=== PATIENT | female | born 1995 | race Two or more races ===

== ENCOUNTER → 2020-03-29 07:41 | Outpatient (BNVA) | payer OTHER, SELFPAY | PROVIDERS: PCP Internal Medicine; Visit Provider Surgery | DX: Z76.89 Persons encountering health services in other specified circumstances (principal) ==

== ENCOUNTER → 2020-04-13 13:33 | Outpatient (REF) | payer OTHER, SELFPAY ==
--- NOTE | 2020-04-13 13:30 | ECG_ITS ---
Hook-up date: 2020-04-13 00:03:00 Duration: 05:56:00 Test Indications: PALPITATIONS Medications: 83156 QRS complexes 1 Ventricular ectopics which represent <1 % of total QRS comp. * Supraventricular ectopics which represent % of total QRS comp. * Paced QRS complexs which represent % of total QRS comp. VENTRICULAR ECTOPY 1 Isolated 0 Bigeminal Cycles 0 Couplets 0 Runs 0 Beats in Runs * Beats LONGEST at * BPM at :: -- * Beats FASTEST at * BPM at :: -- SUPRAVENTRICULAR ECTOPY * Isolated * Couplets * Runs * Beats in Runs * Beats LONGEST at * BPM at :: -- * Beats FASTEST at * BPM at :: -- HEART RATES 50 MIN at 03:45:58 2020-04-13 79 AVG 152 MAX at 03:39:46 2020-04-13 LONGEST RR 1.3840 secs at 04:15:46 2020-04-13 S-T LEVELS Channel 1 - 128 mm at 00:03:00 2020-04-13 - 128 mm at 00:03:00 2020-04-13 Channel 2 - 128 mm at 00:03:00 2020-04-13 - 128 mm at 00:03:00 2020-04-13 Channel 3 - 128 mm at 01:92:21 -- - 128 mm at 01:92:21 Limited data for about 6 hours. Basic rhythm Normal sinus rhythm No long pause or profound bradycardia No dangerous dysrhythm periods Patient did not report any symptoms in the diary Consider repeating the study if clinically indicated Referred By: Nikhil Toney Overread By: YOVANY BURRIS MD
== END ==
LOC: HO.CARD 13:33
PROVIDERS: Visit Provider Internal Medicine
DX: R00.2 Palpitations (principal)
CPT/HCPCS: 93225; 93226

== ENCOUNTER → 2020-04-22 13:43 | Outpatient (BNVA) | payer OTHER, SELFPAY | PROVIDERS: PCP Internal Medicine; Visit Provider Internal Medicine | DX: R00.2 Palpitations (principal) | CPT/HCPCS: 93005; 99202 ==

== ENCOUNTER → 2020-04-27 13:55 | Outpatient (REF) | payer OTHER, SELFPAY ==
--- NOTE | 2020-04-27 14:03 | CA_ITS ---
Transthoracic Echocardiogram Patient (Last, First, Middle): Cecilia Rivas, Gender: Female Date of : 1995 Age: 24 Procedure Date: 04/27/2020 Procedure Type: Transthoracic Echocardiogram Location: OP Height: 160.02 cm Weight: 84.37 kg BSA: 1.88 m2 Heart Rate: bpm BP: 96 / 60 mmHg Piano Mechanic: Liss MD: Jose Pascual MD Symptoms: R00.2 - Palpitations Study Quality: Good ECG Rhythm: Sinus Conclusions: - The left ventricular systolic function is normal. The visually estimated ejection fraction is between 60-65%. - LV global endocardial peak longitudinal strain -20.2% (normal). - No obvious valvular pathology seen on this study. Findings Left Ventricle Normal left ventricular cavity size. There is normal left ventricular wall thickness. The left ventricular systolic function is normal. The visually estimated ejection fraction is between 60-65%. There is no evidence of regional wall motion abnormalities. Diastolic function is normal for age. LV global endocardial peak longitudinal strain -20.2%. Right Ventricle Normal right ventricular cavity size and systolic function. Atria Both atria are normal in size. Aortic Valve There is a normal trileaflet aortic valve. There is no aortic valve stenosis. There is no aortic valve regurgitation. Mitral Valve The mitral valve appears normal. There is trace mitral valve regurgitation. There is no mitral valve stenosis. Pulmonic Valve The pulmonic valve was not well visualized. There is trace pulmonic valve regurgitation. Tricuspid Valve Normal tricuspid valve structure. There is trace tricuspid valve regurgitation. The pulmonary artery systolic pressure is normal. Great Vessels The aortic annulus, sinuses of valsalva, and asc aorta are normal in size. Venous The inferior vena cava is normal in size and collapses greater than 50% with inspiration. Pericardium/Pleural There is no evidence of pericardial effusion. Prior Study Comparison No prior study available for comparison. Recommendations, Care & Conclusions No obvious valvular pathology seen on this study. Measurements 2D Linear Measurements RVIDd: 3.19 RVIDd Index: 1.70 IVSd: 0.80 0.6-0.9/0.6-1.0 cm LVIDd: 5.03 3.9-5.3/4.2-5.9 cm LVIDd Index: 2.68 2.4-3.2/2.2-3.1 cm/m2 LVIDs: 3.65 2.0-3.6 cm LVPWd: 1.01 0.7-1.1 cm Ao Root: 2.70 2.1-3.5 cm LA Diam: 3.80 2.7-3.8/3.0-4.0 cm LAIDs Index: 2.02 1.5-2.3 cm/m2 LV Mass: 201.04 67-162/88-224 g LV Mass Index: 106.94 43-95/49-115 g/m2 LVOT Diam: 2.00 3.0+(-)1.3 cm 2D Systolic Function EF 4C: 59.90 >55% EF 2C: 70.10 >55% EF BiP: 64.40 >55% Mitral Valve MV Pk E: 0.96 MV PK A: 0.34 MV Decel Time: 294.00 E/A: 2.90 E'Lateral: 17.50 E'Medial: 9.25 E/E' Med: 10.40 E/E' Lat: 5.50 Decel [place]: 3.26 Aortic Valve AoV Pk Albino: 1.47 AoV Mn Albino: 1.08 AoV VTI: 0.32 AoV Pk Grad: 9.00 Aov Mn Grad: 5.00 YAIMA Cont.VTI: 2.25 LVOT LVOT Pk Albino: 1.01 LVOT Mn Albino: 0.74 LVOT VTI: 0.23 LVOT Pk Grad: 4.00 LVOT Mn Grad: 2.00 LVOT Diam: 2.00 LVOT Area: 3.14 Diastolic Function MV Pk E: 0.96 MV Pk A: 0.34 E/A: 2.90 E'Medial: 9.25 E/E' Med: 10.40 E' Laterial: 17.50 E/E' Lat: 5.50 Tricuspid Valve TR Pk Albino: 1.81 TR Pk Grad: 13.00 RA Press: 8.00 RVSP: 21.00 Great Vessels Aorta Ao Root-2D: 2.70 2.0-3.7 cm Ao Asc: 2.50 2.1-3.4 cm Ao Arch: 2.60 Updated in Other Vendor System with Status of Final Jose Pascual MD electronically signed on 04/28/2020 8:28:09 AM with status of Final
== END ==
LOC: HO.CARD 13:55
PROVIDERS: PCP Internal Medicine; Visit Provider Internal Medicine
DX: R00.2 Palpitations (principal)
CPT/HCPCS: 93306; 93356

== ENCOUNTER 2020-05-02 13:09 | Emergency (ER) | payer OTHER, SELFPAY ==
[2020-05-02 13:19] VITALS: BP 114/62; PULSE 80; RESP 16; TEMP 36.1; O2SAT 97; BMI 32.4
--- NOTE | 2020-05-02 13:34 | ED_ITS ---
HPI - Extremity Injury (Lower) General Chief Complaint: Extremity Injury, Lower Stated Complaint: upper left leg pain/injury Time Seen by Provider: 05/02/20 13:34 History of Present Illness HPI Narrative: Patient complains of pain in the left thigh after tripping last night and twisting left thigh, no other injury and patient has been able to walk on it but is painful in the front of her left thigh This happened yesterday, the pain is mild, she has not done any treatments at home Related Data Home Medications Medication Instructions Recorded Confirmed levonorgestrel 20.1 mcg/24 hrs (6 INTRAUTERINE 03/27/20 04/22/20 yrs) 52 mg intrauterine device pantoprazole 40 mg tablet,delayed 40 mg PO DAILY 03/27/20 04/22/20 release sucralfate 100 mg/mL oral 10 ml PO BID 03/27/20 04/22/20 suspension spironolactone 50 mg tablet 50 mg PO BID 04/22/20 04/22/20 Previous Rx's Medication Instructions Recorded ibuprofen 600 mg PO Q6H PRN #20 tab 05/02/20 Allergies Allergy/AdvReac Type Severity Reaction Status Date / Time No Known Allergies Allergy Verified 04/22/20 14:25 Review of Systems 2 Review of Systems: Review of systems is positive for left thigh pain Negatives are no head injury no headache no nausea no vomiting no vision changes no dizziness, no neck pain, no difficulty breathing no chest pain or rib pain No numbness no weakness Yes all other systems are reviewed and are negative PMFSH Past Medical History Source: nursing notes reviewed Medical History Intestinal malabsorption Obesity Surgical History S/P laparoscopic sleeve gastrectomy Family History Family History Father Bipolar 1 disorder Mother HTN (hypertension) Son No problems noted. Daughter No problems noted. Brother No problems noted. Sister No problems noted. Social History Social History Alcohol intake: never Smoking Status: Never smoker Advance Directives: No Advance Directives Information Provided: Yes Physical Exam Vital Signs: Vital Signs: Last Vital Signs Temp 96.9 F 05/02/20 13:19 Pulse 80 05/02/20 13:19 Resp 16 05/02/20 13:19 BP 114/62 05/02/20 13:19 Pulse Ox 97 05/02/20 13:19 Body Mass Index 32.4 General appearance is no acute distress, comfortable, ambulates with a limp, A&O x3 Head is normocephalic atraumatic neck is supple and nontender Respiratory there is no respiratory distress Extremities the left anterior thigh in the quadriceps area has tenderness, there is full range of motion in the hip and the knee, there is no tenderness or swelling in the knee joint, there is no obvious swelling to the left thigh, the left hip has full range of motion without pain, neurovascular intact distal Patient ambulates comfortably with a mild limp The skin is intact Other extremities right leg right and left arms are normal Neuro is a and O x3, no numbness no weakness, motor is 5/5 x4 Course Course Course Narrative: No evidence of any bony injury, patient ambulates well with the mild limp and is discharged home with diagnosis left thigh muscle strain Discharge Plan Discharge Clinical Impression: Muscle strain of left lower extremity Qualifiers: Encounter type: initial encounter Qualified Code(s): S86.912A - Strain of unspecified muscle(s) and tendon(s) at lower leg level, left leg, initial encounter Patient Disposition: Home, Self-Care Additional Instructions: You strained a muscle in your thigh and this usually will get better in a few weeks It is okay to do activity as tolerated You can follow with primary doctor or orthopedist for possible physical therapy Return any time any concerns Prescriptions: New ibuprofen 600 mg tablet 600 mg PO Q6H PRN (Reason: pain) Qty: 20 RF: 0 No Action spironolactone 50 mg tablet 50 mg PO BID RF: 0 pantoprazole 40 mg tablet,delayed release (DR/EC) 40 mg PO DAILY RF: 0 sucralfate 100 mg/mL suspension 10 ml PO BID RF: 0 Liletta 20.1 mcg/24 hrs (6 yrs) 52 mg intrauterine device intrauterine RF: 0 Referrals: Richard Mcpherson MD [Physician] - 2 days (Left thigh muscle strain) Interventions: ED Discharge Assessment Last Done: 05/02/20 13:47 Discharge Date/Time: 05/02/20 13:49
== END 2020-05-02 13:49 | disposition home or self-care (01) ==
PROVIDERS: Emergency Provider Emergency Medicine; PCP Internal Medicine
DX: S86.912A Strain of unspecified muscle(s) and tendon(s) at lower leg level, left leg, initial encounter (principal); M79.652 Pain in left thigh; X50.1XXA Overexertion from prolonged static or awkward postures, initial encounter; Y93.01 Activity, walking, marching and hiking; Y92.9 Unspecified place or not applicable; Y99.9 Unspecified external cause status; Z79.899 Other long term (current) drug therapy
CPT/HCPCS: 99283

== ENCOUNTER 2020-05-05 13:32 | Outpatient (REF) | payer OTHER, SELFPAY ==
[2020-05-05 16:06] LABS: Syphilis Screen Reactive (Nonreactive)
[2020-05-06 02:53] LABS: CT PCR NOT DETECTED (Not Detect.); NG PCR NOT DETECTED (Not Detect.)
[2020-05-06 08:18] LABS: BV Int Neg Control Negative (Negative); BV Int Pos Control Positive (Positive)
[2020-05-06 09:08] LABS: HBc Num1 0.09 S/CO (0.00-0.79); Hepatitis B Core Antibody Nonreactive (Nonreactive); ~Hepatitis C Antibody Nonreactive (Nonreactive)
[2020-05-07 16:13] LABS: HIV AB/AG Nonreactive (Nonreactive); HIV Num 1 0.11 S/CO (0.00-0.99)
== END 2020-05-05 13:33 | disposition home or self-care (01) ==
LOC: HO.LAB 13:32
PROVIDERS: Visit Provider Advanced Practice Midwife
DX: Z20.2 Contact with and (suspected) exposure to infections with a predominantly sexual mode of transmission (principal); Z11.3 Encounter for screening for infections with a predominantly sexual mode of transmission
CPT/HCPCS: 86592; 86704; 86780; 86803; 87389; 87480; 87491; 87510; 87591; 87660; 99212

== ENCOUNTER → 2020-05-19 11:02 | Outpatient (BNVA) | payer OTHER, SELFPAY | PROVIDERS: Visit Provider Internal Medicine | DX: Z76.89 Persons encountering health services in other specified circumstances (principal) ==

== ENCOUNTER → 2020-05-26 11:58 | Outpatient (BNVA) | payer OTHER, SELFPAY | PROVIDERS: Visit Provider Advanced Practice Midwife | DX: Z76.89 Persons encountering health services in other specified circumstances (principal) ==

== ENCOUNTER → 2020-06-02 07:22 | Outpatient (BNVA) | payer OTHER, SELFPAY | PROVIDERS: Visit Provider Surgery | DX: Z76.89 Persons encountering health services in other specified circumstances (principal) ==

== ENCOUNTER 2020-06-11 12:17 | Outpatient (REF) | payer OTHER, SELFPAY ==
[2020-06-11 15:05] LABS: Syphilis Screen Reactive (Nonreactive)
[2020-06-14 07:54] LABS: HBsAGNum1 0.21 S/CO (0.00-0.99); Hepatitis B Surface Antigen Negative (Negative); ~HepC Num1 0.07 S/CO (0.00-0.79); ~Hepatitis C Antibody Nonreactive (Nonreactive)
[2020-06-14 08:26] LABS: HIV AB/AG Nonreactive (Nonreactive); HIV Num 1 0.18 S/CO (0.00-0.99)
[2020-06-20 08:47] LABS: RPR Quantitative Non-Reactive (Nonreactive); T.Pallidum Particle Agg Test Reactive (Nonreactive)
== END 2020-06-11 12:18 | disposition home or self-care (01) ==
LOC: HO.LAB 12:17
PROVIDERS: PCP Internal Medicine; Visit Provider Advanced Practice Midwife
DX: Z20.2 Contact with and (suspected) exposure to infections with a predominantly sexual mode of transmission (principal)
CPT/HCPCS: 86592; 86780; 86803; 87340; 87389

== ENCOUNTER 2020-07-07 07:23 | Outpatient (REF) | payer OTHER, SELFPAY | END 2020-07-07 07:24 | disposition home or self-care (01) | LOC: HO.LAB 07:23 | PROVIDERS: Visit Provider Internal Medicine | DX: Z20.822 Contact with and (suspected) exposure to COVID-19 (principal) | CPT/HCPCS: 36415; C9803; U0003 ==

== ENCOUNTER → 2020-07-23 07:28 | Outpatient (BNVA) | payer OTHER, SELFPAY | PROVIDERS: PCP Internal Medicine; Visit Provider Surgery ==

== ENCOUNTER 2020-08-04 09:15 | Outpatient (REF) | payer OTHER, SELFPAY ==
[2020-08-05 09:06] LABS: BV Int Neg Control Negative (Negative); BV Int Pos Control Positive (Positive)
[2020-08-05 12:47] LABS: C. trachomatis RNA TMA NOT DETECTED (NOT DETECTED); N. gonorrhoeae RNA TMA NOT DETECTED (NOT DETECTED)
== END 2020-08-04 09:16 | disposition home or self-care (01) ==
LOC: HO.LAB 09:15
PROVIDERS: PCP Internal Medicine; Visit Provider Advanced Practice Midwife
DX: Z01.419 Encounter for gynecological examination (general) (routine) without abnormal findings (principal); N89.8 Other specified noninflammatory disorders of vagina; K90.49 Malabsorption due to intolerance, not elsewhere classified; Z20.2 Contact with and (suspected) exposure to infections with a predominantly sexual mode of transmission; Z90.3 Acquired absence of stomach [part of]
CPT/HCPCS: 87480; 87491; 87510; 87591; 87660; 88142

== ENCOUNTER 2020-08-06 08:23 | Outpatient (REF) | payer OTHER, SELFPAY ==
[2020-08-06 09:36] LABS: HCG Quantitative < 2 mIU/mL
[2020-08-06 09:57] LABS: Syphilis Screen Reactive (Nonreactive)
[2020-08-06 10:02] LABS: HBc Num1 0.07 S/CO (0.00-0.79); HIV AB/AG Nonreactive (Nonreactive); HIV Num 1 0.07 S/CO (0.00-0.99); Hepatitis B Core Antibody Nonreactive (Nonreactive); ~HepC Num1 0.08 S/CO (0.00-0.79); ~Hepatitis C Antibody Nonreactive (Nonreactive)
[2020-08-13 11:09] LABS: RPR Quantitative Non-Reactive (Nonreactive); T.Pallidum Particle Agg Test Reactive (Nonreactive)
== END 2020-08-06 08:24 | disposition home or self-care (01) ==
LOC: HO.LAB 08:23
PROVIDERS: PCP Internal Medicine; Visit Provider Advanced Practice Midwife
DX: Z20.2 Contact with and (suspected) exposure to infections with a predominantly sexual mode of transmission (principal); Z30.09 Encounter for other general counseling and advice on contraception
CPT/HCPCS: 36415; 84702; 86592; 86704; 86780; 86803; 87389; 87491; 87591

== ENCOUNTER 2020-08-10 11:55 | Outpatient (REF) | payer OTHER, SELFPAY ==
[2020-08-10 13:59] LABS: MANUAL DIFF FLAG NO
[2020-08-10 14:01] LABS: Basophils Percent Auto 0.3 % (0-2); Eosinophils Absolute Auto 0.1 X10*3/uL (0.0-0.4); Eosinophils Percent Auto 0.9 % (0-4); Hematocrit 39.9 % (37-47); Hemoglobin 12.8 g/dl (12.0-16.0); Imm Gran Abs Auto 0.01 X10*3/uL (0.00-0.03); Imm Gran Pct Auto 0.1 % (0.0-0.4); Lymphocytes Absolute Auto 2.8 X10*3/uL (1.2-4.9); Lymphocytes Percent Auto 29.3 % (20-40); Mean Corpuscular HGB Conc 32.1 g/dl (31.0-35.0); Mean Corpuscular Hemoglobin 29.5 pg (27.0-33.0); Mean Corpuscular Volume 91.9 fL (80-98); Mean Platelet Volume 10.8 fL (9.4-12.3); Monocytes Absolute Auto 0.5 X10*3/uL (0.1-1.2); Monocytes Percent Auto 5.4 % (2-11); Neutrophils Absolute Auto 6.2 X10*3/uL (2.0-8.3); Platelet Count 399 X10*3/uL (160-400); Red Blood Count 4.34 X10*6/uL (4.20-5.50); Red Cell Distribution Width 12.3 % (11.0-16.0); White Blood Count 9.6 X10*3/uL (4.8-10.8)
[2020-08-10 14:10] LABS: INTERNATIONAL NORM RATIO 1.1 (0.9-1.1); Prothrombin Time 13.1 SEC (10.8-13.0)
[2020-08-10 14:34] LABS: Alanine Aminotransferase 14 U/L (0-31); Albumin Level 4.6 g/dL (3.5-5.0); Alkaline Phosphatase 53 U/L (39-117); Anion Gap 11 (12-20); Aspartate Amino Transferase 18 U/L (5-31); Bilirubin Total 0.8 mg/dL (0.0-1.0); Blood Urea Nitrogen 14 mg/dL (9-16); Calcium 9.7 mg/dL (8.4-10.2); Carbon Dioxide 28 mmol/L (22-29); Chloride 105 mmol/L (96-108); Estimated Glomerular Filt Rate > 60; Glucose Random 84 mg/dL (60-115); Potassium 4.6 mmol/L (3.3-5.1); Sodium 139 mmol/L (135-145); Total Protein 7.6 g/dL (6.5-8.0)
[2020-08-10 14:57] LABS: Ferritin 35 ng/mL (10-122)
[2020-08-11 17:36] LABS: C. trachomatis RNA TMA NOT DETECTED (NOT DETECTED); N. gonorrhoeae RNA TMA NOT DETECTED (NOT DETECTED)
== END 2020-08-10 11:56 | disposition home or self-care (01) ==
LOC: HO.HMGCLDS 11:55
PROVIDERS: PCP Internal Medicine; Visit Provider Nurse Practitioner Family
DX: R23.8 Other skin changes (principal); Z20.2 Contact with and (suspected) exposure to infections with a predominantly sexual mode of transmission
CPT/HCPCS: 36415; 80053; 82728; 85025; 85610; 87491; 87591

== ENCOUNTER 2020-09-07 09:36 | Outpatient (REF) | payer OTHER, SELFPAY ==
[2020-09-07 10:17] LABS: MANUAL DIFF FLAG NO
[2020-09-07 10:23] LABS: Basophils Percent Auto 0.5 % (0-2); Eosinophils Absolute Auto 0.1 X10*3/uL (0.0-0.4); Eosinophils Percent Auto 0.8 % (0-4); Hematocrit 39.5 % (37-47); Hemoglobin 12.9 g/dl (12.0-16.0); Imm Gran Abs Auto 0.01 X10*3/uL (0.00-0.03); Imm Gran Pct Auto 0.2 % (0.0-0.4); Lymphocytes Percent Auto 33.2 % (20-40); Mean Corpuscular HGB Conc 32.7 g/dl (31.0-35.0); Mean Corpuscular Hemoglobin 29.3 pg (27.0-33.0); Mean Corpuscular Volume 89.8 fL (80-98); Monocytes Absolute Auto 0.5 X10*3/uL (0.1-1.2); Monocytes Percent Auto 7.3 % (2-11); Neutrophils Absolute Auto 3.6 X10*3/uL (2.0-8.3); Platelet Count 356 X10*3/uL (160-400); Red Cell Distribution Width 11.9 % (11.0-16.0); White Blood Count 6.1 X10*3/uL (4.8-10.8)
[2020-09-07 10:57] LABS: Alanine Aminotransferase 13 U/L (0-31); Albumin Level 4.5 g/dL (3.5-5.0); Alkaline Phosphatase 49 U/L (39-117); Anion Gap 10 (12-20); Aspartate Amino Transferase 18 U/L (5-31); Bilirubin Direct 0.4 mg/dL (0.0-0.5); Blood Urea Nitrogen 19 mg/dL (9-16); Calcium 9.3 mg/dL (8.4-10.2); Carbon Dioxide 28 mmol/L (22-29); Chloride 107 mmol/L (96-108); Cholesterol 118 mg/dL; Estimated Glomerular Filt Rate > 60; Glucose Fasting 78 mg/dL (60-99); HDL Cholesterol 59 mg/dL; LDL Cholesterol Calculated 54 mg/dl; Potassium 4.7 mmol/L (3.3-5.1); Sodium 140 mmol/L (135-145); Total Protein 7.3 g/dL (6.5-8.0); Triglycerides 28 mg/dL
== END 2020-09-07 09:37 | disposition home or self-care (01) ==
LOC: HO.LAB 09:36
PROVIDERS: Absent Provider Advanced Practice Midwife; PCP Internal Medicine; Visit Provider Internal Medicine
DX: Z00.01 Encounter for general adult medical examination with abnormal findings (principal)
CPT/HCPCS: 36415; 80048; 80061; 80076; 85025

== ENCOUNTER 2020-09-08 12:33 | Outpatient (REF) | payer OTHER, SELFPAY | END 2020-09-08 12:34 | disposition home or self-care (01) | LOC: HO.LAB 12:33 | PROVIDERS: Visit Provider Internal Medicine | DX: Z20.822 Contact with and (suspected) exposure to COVID-19 (principal) | CPT/HCPCS: 36415; C9803; U0003; U0005 ==

== ENCOUNTER 2020-10-02 20:21 | Emergency (ER) | payer OTHER, SELFPAY ==
[2020-10-02 20:34] VITALS: BP 157/79; PULSE 84; RESP 18; TEMP 37.4; O2SAT 100; BMI 31.3
--- NOTE | 2020-10-02 22:37 | ED.WOUNDLAC ---
HPI - Wound/Laceration General Chief Complaint: Wound/Laceration Stated Complaint: Wound check Time Seen by Provider: 10/02/20 21:49 Source: patient Mode of arrival: ambulatory Limitations: no limitations History of Present Illness HPI narrative: Patient had abdominoplasty cosmetic surgery on 09/23/2020 had a drain placed none did not notice much drainage for last 24 hour feel gas in abdomen no significant redness or pus discharge around the incision site no fever no vomiting Related Data Home Medications Medication Instructions Recorded Confirmed pantoprazole 40 mg tablet,delayed 40 mg PO DAILY 03/27/20 11/09/20 release spironolactone 50 mg tablet 50 mg PO BID 04/22/20 11/09/20 hydrocortisone valerate 0.2 % appl TOPICAL BID PRN 10/06/20 11/09/20 topical cream levonorgestrel 20 mcg/24 hours (6 VAGINAL ONCE 10/06/20 11/09/20 yrs) 52 mg intrauterine device ondansetron 4 mg disintegrating 4 mg PO DAILY PRN 10/06/20 11/09/20 tablet peg 3350-electrolytes 236 ml PO 10/06/20 11/09/20 gram-22.74 gram-6.74 gram-5.86 gram solution tretinoin 0.025 % topical cream appl TOPICAL DIRECTED 10/06/20 11/09/20 ulipristal 30 mg tablet 30 mg PO 10/06/20 11/09/20 Previous Rx's Medication Instructions Recorded metronidazole 0.75 % vaginal gel 1 appful VAGINAL BEDTIME 5 Days 05/07/20 #70 g levonorgestrel 1.5 mg tablet 1.5 mg PO ONCE 1 Days #1 tab 06/02/20 Allergies Allergy/AdvReac Type Severity Reaction Status Date / Time No Known Allergies Allergy Verified 11/09/20 11:59 Review of Systems Review of Systems: Yes all other systems are reviewed and are negative [facility] Past Medical History Medical History Intestinal malabsorption Surgical History Obesity S/P laparoscopic sleeve gastrectomy Family History Family History Father Bipolar 1 disorder Mother HTN (hypertension) Son No problems noted. Daughter No problems noted. Brother No problems noted. Sister No problems noted. Unknown Ovarian cancer Social History Social History Alcohol intake: current Gender identity: female Physical Exam Vital Signs: Vital Signs: Last Vital Signs Temp 99.3 F 10/02/20 20:34 Pulse 84 10/02/20 20:34 Resp 18 10/02/20 20:34 BP 157/79 H 10/02/20 20:34 Pulse Ox 100 10/02/20 20:34 Body Mass Index 31.3 Const: General: healthy appearing and comfortable HENMT: Head: Yes normocephalic Eyes: General: appearance normal, both eyes and all related structures Resp: Effort & Inspection: normal respiratory effort Auscultation: clear to auscultation bilaterally Cardio: Palpation: normal PMI Rate: regular rate Rhythm: regular rhythm Heart sounds: S1 normal heart sound present and S2 normal heart sound present GI: Other: Healing scar of abdominal plasty with drain in place no significant discharge no significant tenderness small amount of serosanguineous fluid still draining in the Hemovac MDM - Wound/Laceration MDM Narrative Medical decision making narrative: Patient status post surgery with hemo VAC in place draining small amount of fluid patient is supposed to get drain removed 2-3 weeks postop, clinically does not look like patient has infection or fluid collection advised patient to follow-up with surgeon as outpatient Discharge Plan Discharge Clinical Impression: Postoperative abdominal pain Patient Disposition: Home, Self-Care Instructions: Hemovac Drain Care (DC) Additional Instructions: Care as advised report to the ER if increased pain. Follow-up with surgeon Prescriptions: No Action metronidazole [Metrogel Vaginal] 0.75 % gel 1 appful vaginal BEDTIME 5 Days Qty: 70 RF: 0 levonorgestrel [Plan B One-Step] 1.5 mg tablet 1.5 mg PO ONCE 1 Days Qty: 1 RF: 0 tretinoin 0.025 % cream topical DIRECTED RF: 0 Dinorah 30 mg tablet 30 mg PO RF: 0 Mirena 20 mcg/24 hours (6 yrs) 52 mg intrauterine device vaginal ONCE RF: 0 peg 3350-electrolytes 236-22.74-6.74 -5.86 gram recon soln PO RF: 0 hydrocortisone valerate 0.2 % cream topical BID PRNRF: 0 ondansetron 4 mg tablet,disintegrating 4 mg PO DAILY PRNRF: 0 spironolactone 50 mg tablet 50 mg PO BID RF: 0 pantoprazole 40 mg tablet,delayed release (DR/EC) 40 mg PO DAILY RF: 0 Referrals: Alfonso Epps MD [Physician] - 2 days Interventions: ED Discharge Assessment Last Done: 10/02/20 22:50 Discharge Date/Time: 10/02/20 22:50
== END 2020-10-02 22:50 | disposition home or self-care (01) ==
PROVIDERS: Emergency Provider Internal Medicine; PCP Internal Medicine
DX: Z48.00 Encounter for change or removal of nonsurgical wound dressing (principal)
CPT/HCPCS: 99282; 99283

== ENCOUNTER 2020-10-15 17:28 | Emergency (ER) | payer OTHER, SELFPAY ==
[2020-10-15 18:20] VITALS: BP 108/34; PULSE 74; RESP 16; TEMP 36.7; O2SAT 100; BMI 31.6
--- NOTE | 2020-10-15 18:59 | ED_ITS ---
HPI - Wound/Laceration General Chief Complaint: Wound/Laceration Stated Complaint: abscess Time Seen by Provider: 10/15/20 18:59 Source: patient Mode of arrival: ambulatory Limitations: no limitations History of Present Illness HPI narrative: 25 y/o female who had multiple cosmetic procedures done in [place] on 09/23 presents to the ED for abdominal drain removal. She was seen here previously for the same and advised to f/u with Dr. Epps in Surgery. She was not able to be seen until October. She went to an Urgent Care walk in today to remove the drain but the suture was not able to be accessed to remove the drain per the patient. She states the output went from 200 cc per day to minimal the last 2 days. The plan with her surgeon was to get it removed in 2-3 weeks post- op depending on when drainage decreased. She denies fever, chills, N/V/D or drainage of pus. Onset (ago): week(s) Location: abdomen Associated symptoms: none Treatments prior to arrival: bandage Related Data Home Medications Medication Instructions Recorded Confirmed pantoprazole 40 mg tablet,delayed 40 mg PO DAILY 03/27/20 10/15/20 release sucralfate 100 mg/mL oral 10 ml PO BID 03/27/20 10/15/20 suspension spironolactone 50 mg tablet 50 mg PO BID 04/22/20 10/15/20 doxycycline hyclate 100 mg capsule 100 mg PO DAILY 10/06/20 10/15/20 fluconazole 150 mg tablet 150 mg PO ONCE 10/06/20 10/15/20 hydrocortisone valerate 0.2 % appl TOPICAL BID PRN 10/06/20 10/15/20 topical cream levonorgestrel 20 mcg/24 hours (6 VAGINAL ONCE 10/06/20 10/15/20 yrs) 52 mg intrauterine device ondansetron 4 mg disintegrating 4 mg PO DAILY PRN 10/06/20 10/15/20 tablet peg 3350-electrolytes 236 ml PO 10/06/20 10/15/20 gram-22.74 gram-6.74 gram-5.86 gram solution phentermine 37.5 mg capsule 37.5 mg PO DAILY 10/06/20 10/15/20 sulfamethoxazole 800 1 tab PO BID 10/06/20 10/15/20 mg-trimethoprim 160 mg tablet tretinoin 0.025 % topical cream appl TOPICAL DIRECTED 10/06/20 10/15/20 ulipristal 30 mg tablet 30 mg PO 10/06/20 10/15/20 Previous Rx's Medication Instructions Recorded ibuprofen 600 mg PO Q6H PRN #20 tab 05/02/20 metronidazole 0.75 % vaginal gel 1 appful VAGINAL BEDTIME 5 Days 05/07/20 #70 g levonorgestrel 1.5 mg tablet 1.5 mg PO ONCE 1 Days #1 tab 06/02/20 amoxicillin-pot clavulanate 1 tab PO BID #20 tab 10/15/20 [Augmentin] Allergies Allergy/AdvReac Type Severity Reaction Status Date / Time No Known Allergies Allergy Verified 10/15/20 15:50 Review of Systems Review of Systems: Constitutional: No Fever, No Chills Cardiovascular: No Chest Pain, No SOB, No Orthopnea, No Edema Respiratory: No Cough, No Sputum, No Wheezing, No dyspnea Gastrointestinal: No Nausea, No Vomiting, No Diarrhea, No abdominal Pain Genitourinary: No Dysuria, No Urinary Frequency, No Hematuria Musculoskeletal: No joint pain, No Myalgias Skin: + Skin Lesions, No rash Neuro: No Weakness, No Numbness, No Dizziness, No Headache Psych: No Anxiety/Panic, No Depression Heme/Lymph: + Bruising, No Lymphadenopathy PMFSH Past Medical History Attestation statement: The following information was validated with the patient. Medical History Intestinal malabsorption Surgical History Obesity S/P laparoscopic sleeve gastrectomy Family History Family History Father Bipolar 1 disorder Mother HTN (hypertension) Son No problems noted. Daughter No problems noted. Brother No problems noted. Sister No problems noted. Unknown Ovarian cancer Social History Social History Alcohol intake: current Smoking Status: Never smoker Advance Directives: No Advance Directives Information Provided: No Gender identity: female Physical Exam Vital Signs: Vital Signs: Last Vital Signs Temp 98.0 F 10/15/20 18:20 Pulse 74 10/15/20 18:20 Resp 16 10/15/20 18:20 BP 108/34 L 10/15/20 18:20 Pulse Ox 100 10/15/20 18:20 Body Mass Index 31.6 Appearance: Alert. Oriented X3. No acute distress. Eyes: Pupils equal, round and reactive to light. ENT: Pharynx normal. Neck: Normal inspection. Neck supple. CVS: Normal heart rate and rhythm. Pulses normal. Respiratory: No respiratory distress. Breath sounds normal. Abdomen: well healing surgical scar along the entire lower abdomen with drain in place in the LLQ, small amount of dark red fluid in the tubing. no focal tenderness, no drainage of pus, no erythema or warmth. Skin: Skin warm and dry. Normal skin color. Normal skin turgor. No rashes. Extremities: No lower extremity edema. Neuro: Oriented X 3. Non-focal. Course Course Course Narrative: 25 y/o female presenting 3+ weeks post-op from [facility] done in [place]. No signs of infection. Dr. Hall removed the drain at the bedside, completely intact without any drainage. Pt tolerated well. Gauze dressing applied. Wound care discussed. She will f/u with Surgery in October. PPX Augmentin given for 10 days. Stable for d/c. Critical Care Time Critical Care Time Critical Care Time: No Discharge Plan Discharge Clinical Impression: Encounter for change or removal of drains Patient Disposition: Home, Self-Care Instructions: Hemovac Drain Care (DC) Additional Instructions: Surgical drain was removed today in the ER. Recommend following up with Surgery as soon as you can. Take the prescribed antibiotic to help prevent infection. Change the dressing 2-3 times per day. If you notice drainage of pus, increased pain, swelling or any other concerns come back to the ER for further evaluation. Prescriptions: New amoxicillin-pot clavulanate [Augmentin] 875-125 mg tablet 1 tab PO BID Qty: 20 RF: 0 No Action metronidazole [Metrogel Vaginal] 0.75 % gel 1 appful vaginal BEDTIME 5 Days Qty: 70 RF: 0 levonorgestrel [Plan B One-Step] 1.5 mg tablet 1.5 mg PO ONCE 1 Days Qty: 1 RF: 0 ibuprofen 600 mg tablet 600 mg PO Q6H PRN (Reason: pain) Qty: 20 RF: 0 sulfamethoxazole-trimethoprim 800-160 mg tablet 1 tab PO BID RF: 0 tretinoin 0.025 % cream topical DIRECTED RF: 0 Dinorah 30 mg tablet 30 mg PO RF: 0 Mirena 20 mcg/24 hours (6 yrs) 52 mg intrauterine device vaginal ONCE RF: 0 doxycycline hyclate 100 mg capsule 100 mg PO DAILY RF: 0 fluconazole 150 mg tablet 150 mg PO ONCE RF: 0 peg 3350-electrolytes 236-22.74-6.74 -5.86 gram recon soln PO RF: 0 hydrocortisone valerate 0.2 % cream topical BID PRNRF: 0 ondansetron 4 mg tablet,disintegrating 4 mg PO DAILY PRNRF: 0 phentermine 37.5 mg capsule 37.5 mg PO DAILY RF: 0 spironolactone 50 mg tablet 50 mg PO BID RF: 0 pantoprazole 40 mg tablet,delayed release (DR/EC) 40 mg PO DAILY RF: 0 sucralfate 100 mg/mL suspension 10 ml PO BID RF: 0 Referrals: Alfonso Epps MD [Physician] - 1 week Interventions: ED Discharge Assessment Last Done: 10/15/20 19:11 Discharge Date/Time: 10/15/20 19:12
--- NOTE | 2020-10-15 19:06 | PC.NURSE ---
PROVIDER AWARE OF PATIENTS BP. PT ASYMPTOMATIC.
== END 2020-10-15 19:12 | disposition home or self-care (01) ==
PROVIDERS: Emergency Provider Internal Medicine; PCP Internal Medicine
DX: R10.12 Left upper quadrant pain (principal); Z48.03 Encounter for change or removal of drains; Z79.899 Other long term (current) drug therapy
CPT/HCPCS: 99283

== ENCOUNTER 2020-11-02 12:44 | Outpatient (REF) | payer OTHER, SELFPAY ==
[2020-11-02 13:19] LABS: MANUAL DIFF FLAG NO
[2020-11-02 13:32] LABS: Basophils Percent Auto 0.3 % (0-2); Eosinophils Absolute Auto 0.1 X10*3/uL (0.0-0.4); Eosinophils Percent Auto 1.1 % (0-4); Hematocrit 38.2 % (37-47); Hemoglobin 12.1 g/dl (12.0-16.0); Imm Gran Abs Auto 0.03 X10*3/uL (0.00-0.03); Imm Gran Pct Auto 0.3 % (0.0-0.4); Lymphocytes Absolute Auto 2.3 X10*3/uL (1.2-4.9); Lymphocytes Percent Auto 24.9 % (20-40); Mean Corpuscular HGB Conc 31.7 g/dl (31.0-35.0); Mean Corpuscular Hemoglobin 29.2 pg (27.0-33.0); Mean Platelet Volume 10.2 fL (9.4-12.3); Monocytes Absolute Auto 0.6 X10*3/uL (0.1-1.2); Monocytes Percent Auto 6.5 % (2-11); Neutrophils Absolute Auto 6.2 X10*3/uL (2.0-8.3); Neutrophils Percent Auto 66.9 % (45-73); Platelet Count 440 X10*3/uL (160-400); Red Blood Count 4.15 X10*6/uL (4.20-5.50); Red Cell Distribution Width 12.4 % (11.0-16.0); White Blood Count 9.3 X10*3/uL (4.8-10.8)
[2020-11-02 14:08] LABS: Ferritin 69 ng/mL (10-122)
[2020-11-02 14:11] LABS: Vitamin B12 537 pg/mL (200-900)
[2020-11-03 01:15] LABS: CT PCR NOT DETECTED (Not Detect.); NG PCR NOT DETECTED (Not Detect.)
== END 2020-11-02 12:45 | disposition home or self-care (01) ==
LOC: HO.LAB 12:44
PROVIDERS: Advanced Practice Midwife; PCP Internal Medicine; Visit Provider Internal Medicine
DX: D64.9 Anemia, unspecified (principal); Z20.2 Contact with and (suspected) exposure to infections with a predominantly sexual mode of transmission
CPT/HCPCS: 36415; 82607; 82728; 85025; 87491; 87591

== ENCOUNTER 2020-11-09 12:25 | Outpatient (REF) | payer OTHER, SELFPAY ==
[2020-11-09 13:50] LABS: MANUAL DIFF FLAG NO
[2020-11-09 13:54] LABS: Basophils Percent Auto 0.2 % (0-2); Eosinophils Absolute Auto 0.1 X10*3/uL (0.0-0.4); Eosinophils Percent Auto 1.1 % (0-4); Hematocrit 36.3 % (37-47); Hemoglobin 11.5 g/dl (12.0-16.0); Imm Gran Abs Auto 0.03 X10*3/uL (0.00-0.03); Imm Gran Pct Auto 0.3 % (0.0-0.4); Lymphocytes Absolute Auto 2.1 X10*3/uL (1.2-4.9); Lymphocytes Percent Auto 20.5 % (20-40); Mean Corpuscular HGB Conc 31.7 g/dl (31.0-35.0); Mean Corpuscular Hemoglobin 28.8 pg (27.0-33.0); Mean Corpuscular Volume 90.8 fL (80-98); Mean Platelet Volume 10.2 fL (9.4-12.3); Monocytes Absolute Auto 0.6 X10*3/uL (0.1-1.2); Monocytes Percent Auto 6.1 % (2-11); Neutrophils Absolute Auto 7.4 X10*3/uL (2.0-8.3); Neutrophils Percent Auto 71.8 % (45-73); Platelet Count 426 X10*3/uL (160-400); Red Cell Distribution Width 12.1 % (11.0-16.0); White Blood Count 10.2 X10*3/uL (4.8-10.8)
[2020-11-10 08:15] LABS: HBc Num1 0.11 S/CO (0.00-0.79); HIV AB/AG Nonreactive (Nonreactive); HIV Num 1 0.09 S/CO (0.00-0.99); Hepatitis B Core Antibody Nonreactive (Nonreactive); ~Hepatitis B Surface Antibody REACTIVE (Nonreactive)
[2020-11-10 08:42] LABS: HBsAGNum1 0.21 S/CO (0.00-0.99); Hepatitis A Antibody IgM 0.15 Index (0-0.79); Hepatitis B Surface Antigen Negative (Negative); ~HepC Num1 0.07 S/CO (0.00-0.79); ~Hepatitis A Antibody IgM Nonreactive (Nonreactive); ~Hepatitis C Antibody Nonreactive (Nonreactive)
[2020-11-10 09:04] LABS: Syphilis Screen Reactive (Nonreactive)
[2020-11-10 13:46] LABS: Herpes Simplex Type 1 IgG 9.44 index; Herpes Simplex Type 2 IgG 1.93 index
[2020-11-17 13:53] LABS: RPR Quantitative Non-Reactive (Nonreactive); T.Pallidum Particle Agg Test Reactive (Nonreactive)
== END 2020-11-09 12:26 | disposition home or self-care (01) ==
LOC: HO.HMGCLDS 12:25
PROVIDERS: PCP Internal Medicine; Visit Provider Internal Medicine
DX: Z11.3 Encounter for screening for infections with a predominantly sexual mode of transmission (principal); Z11.4 Encounter for screening for human immunodeficiency virus [HIV]; Z01.84 Encounter for antibody response examination; D47.3 Essential (hemorrhagic) thrombocythemia
CPT/HCPCS: 36415; 85025; 86592; 86695; 86696; 86704; 86706; 86709; 86780; 86803; 87340; 87389

== ENCOUNTER 2020-12-14 09:43 | Outpatient (REF) | payer OTHER, SELFPAY | END 2020-12-14 09:44 | disposition home or self-care (01) | LOC: HO.LAB 09:43 | PROVIDERS: PCP Internal Medicine; Visit Provider Advanced Practice Midwife | DX: Z13.89 Encounter for screening for other disorder (principal) ==

== ENCOUNTER 2020-12-22 08:54 | Outpatient (REF) | payer OTHER, SELFPAY ==
[2020-12-22 11:19] LABS: Hepatitis B Core Antibody Nonreactive (Nonreactive)
[2020-12-22 11:24] LABS: Syphilis Screen Reactive (Nonreactive)
[2020-12-22 11:32] LABS: ~HepC Num1 0.07 S/CO (0.00-0.79); ~Hepatitis C Antibody Nonreactive (Nonreactive)
[2020-12-22 16:14] LABS: CT PCR NOT DETECTED (Not Detect.); NG PCR NOT DETECTED (Not Detect.)
[2020-12-23 08:20] LABS: BV Int Neg Control Negative (Negative); BV Int Pos Control Positive (Positive)
[2020-12-23 11:49] LABS: HIV AB/AG Nonreactive (Nonreactive); HIV Num 1 0.07 S/CO (0.00-0.99)
[2020-12-29 07:56] LABS: RPR Quantitative Non-Reactive (Nonreactive)
[2020-12-29 07:57] LABS: T.Pallidum Particle Agg Test Reactive (Nonreactive)
== END 2020-12-22 08:55 | disposition home or self-care (01) ==
LOC: HO.LAB 08:54
PROVIDERS: PCP Internal Medicine; Visit Provider Advanced Practice Midwife
DX: Z01.84 Encounter for antibody response examination (principal); Z11.4 Encounter for screening for human immunodeficiency virus [HIV]; Z11.3 Encounter for screening for infections with a predominantly sexual mode of transmission; Z11.59 Encounter for screening for other viral diseases; N89.8 Other specified noninflammatory disorders of vagina; Z20.2 Contact with and (suspected) exposure to infections with a predominantly sexual mode of transmission
CPT/HCPCS: 36415; 81025; 86592; 86704; 86780; 86803; 87389; 87480; 87491; 87510; 87591; 87660; 99212

== ENCOUNTER 2021-01-11 15:08 | Outpatient (REF) | payer OTHER, SELFPAY | END 2021-01-11 15:09 | disposition home or self-care (01) | LOC: HO.LAB 15:08 | PROVIDERS: PCP Internal Medicine; Visit Provider Internal Medicine | DX: Z20.822 Contact with and (suspected) exposure to COVID-19 (principal) | CPT/HCPCS: C9803; U0003; U0005 ==

== ENCOUNTER 2021-02-04 00:32 | Emergency (ER) | payer OTHER, SELFPAY ==
--- NOTE | 2021-02-04 | ECG_ITS ---
Test Reason : SYNCOPE Blood Pressure : / mmHG Vent. Rate : 076 BPM Atrial Rate : 076 BPM P-R Int : 132 ms QRS Dur : 094 ms QT Int : 372 ms P-R-T Axes : 035 025 022 degrees QTc Int : 418 ms Normal sinus rhythm with sinus arrhythmia Normal ECG When compared with ECG of 06-JAN-2020 17:28, No significant change was found Referred By: Generic ED Physician Electronically Signed By:OSIEL RIGGINS
[2021-02-04 01:45] VITALS: BP 109/61; PULSE 68; RESP 16; TEMP 36.1; O2SAT 100; BMI 29.2
[2021-02-04 03:53] VITALS: BP 106/62; PULSE 68; RESP 15; TEMP 36.5; O2SAT 100
[2021-02-04 03:56] VITALS: BP 109/54; PULSE 76
[2021-02-04 03:57] VITALS: BP 108/51; PULSE 79
[2021-02-04 03:58] VITALS: BP 93/54; PULSE 71
[2021-02-04 04:15] LABS: MANUAL DIFF FLAG NO
[2021-02-04 04:16] LABS: Basophils Percent Auto 0.2 % (0-2); Eosinophils Absolute Auto 0.1 X10*3/uL (0.0-0.4); Eosinophils Percent Auto 0.7 % (0-4); Hematocrit 37.8 % (37-47); Hemoglobin 12.2 g/dl (12.0-16.0); Imm Gran Abs Auto 0.04 X10*3/uL (0.00-0.03); Imm Gran Pct Auto 0.3 % (0.0-0.4); Lymphocytes Absolute Auto 2.8 X10*3/uL (1.2-4.9); Lymphocytes Percent Auto 22.9 % (20-40); Mean Corpuscular HGB Conc 32.3 g/dl (31.0-35.0); Mean Corpuscular Hemoglobin 28.8 pg (27.0-33.0); Mean Corpuscular Volume 89.4 fL (80-98); Mean Platelet Volume 9.8 fL (9.4-12.3); Monocytes Absolute Auto 0.8 X10*3/uL (0.1-1.2); Monocytes Percent Auto 6.2 % (2-11); Neutrophils Absolute Auto 8.6 X10*3/uL (2.0-8.3); Neutrophils Percent Auto 69.7 % (45-73); Platelet Count 372 X10*3/uL (160-400); Red Blood Count 4.23 X10*6/uL (4.20-5.50); Red Cell Distribution Width 14.1 % (11.0-16.0); White Blood Count 12.3 X10*3/uL (4.8-10.8)
[2021-02-04 04:25] LABS: Glucose Urine UA NEG (NEG); Leukocyte Esterase Urine 1+ (NEG); Nitrite Urine POS (NEG); Specific Gravity - Urine >= 1.030 (1.005-1.025); UACC Culture Trigger YES; Urine Blood NEG (NEG); Urine Ketones 5 MG/DL (NEG); Urine Protein 1+ MG/DL (NEG-TRACE)
[2021-02-04 04:28] LABS: Appearance Urine HAZY; Color Urine DARK YELLOW
[2021-02-04 04:40] LABS: Alanine Aminotransferase 16 U/L (0-31); Albumin Level 4.1 g/dL (3.5-5.0); Alkaline Phosphatase 57 U/L (39-117); Anion Gap 10 (12-20); Aspartate Amino Transferase 18 U/L (5-31); Bilirubin Total 0.3 mg/dL (0.0-1.0); Blood Urea Nitrogen 12 mg/dL (9-16); Calcium 9.3 mg/dL (8.4-10.2); Carbon Dioxide 29 mmol/L (22-29); Chloride 106 mmol/L (96-108); Creatinine Clr Calc Pharmacy 102.9; Estimated Glomerular Filt Rate > 60; Glucose Random 95 mg/dL (60-115); Potassium 4.4 mmol/L (3.3-5.1); Sodium 141 mmol/L (135-145); Total Protein 6.7 g/dL (6.5-8.0)
[2021-02-04 04:46] LABS: HCG Quantitative < 2 mIU/mL
[2021-02-04 04:54] LABS: Bacteria Urine 3+ /LPF; Mucus Urine 3+ /LPF; RBC Urine 0 /HPF (0); Squamous Epithelial Cell Urine TRACE /LPF
[2021-02-04 05:47] VITALS: BP 94/52; PULSE 51; RESP 13; O2SAT 96
--- NOTE | 2021-02-04 06:24 | ED_ITS ---
HPI - Dizziness General Chief Complaint: Dizziness Stated Complaint: Syncope Time Seen by Provider: 02/04/21 03:56 Source: patient Mode of arrival: ambulatory History of Present Illness HPI Narrative: Is a 25-year-old female without significant past medical history you stated that she felt dizzy while in the shower, and describes the room spinning with accompaniment of nausea but no vomiting and denies shortness of breath, chest pain/palpitations, recent travel or ear pain. Patient also denies any recent fever or chills and states she has been drinking plenty of water. Related Data Home Medications Medication Instructions Recorded Confirmed pantoprazole 40 mg tablet,delayed 40 mg PO DAILY 03/27/20 11/09/20 release spironolactone 50 mg tablet 50 mg PO BID 04/22/20 11/09/20 hydrocortisone valerate 0.2 % appl TOPICAL BID PRN 10/06/20 11/09/20 topical cream levonorgestrel 20 mcg/24 hours (6 VAGINAL ONCE 10/06/20 11/09/20 yrs) 52 mg intrauterine device ondansetron 4 mg disintegrating 4 mg PO DAILY PRN 10/06/20 11/09/20 tablet peg 3350-electrolytes 236 ml PO 10/06/20 11/09/20 gram-22.74 gram-6.74 gram-5.86 gram solution tretinoin 0.025 % topical cream appl TOPICAL DIRECTED 10/06/20 11/09/20 ulipristal 30 mg tablet 30 mg PO 10/06/20 11/09/20 Previous Rx's Medication Instructions Recorded metronidazole 0.75 % vaginal gel 1 appful VAGINAL BEDTIME 5 Days 05/07/20 (Metrogel Vaginal) #70 g levonorgestrel 1.5 mg tablet (Plan 1.5 mg PO ONCE 1 Days #1 tab 06/02/20 B One-Step) cephalexin 500 mg capsule 500 mg PO Q12H 5 Days #10 cap 02/04/21 Allergies Allergy/AdvReac Type Severity Reaction Status Date / Time No Known Allergies Allergy Verified 02/04/21 03:56 Review of Systems Review of Systems: Pertinent positives and negatives as stated in HPI 10 point review systems is otherwise negative. PMFSH Past Medical History Source: nursing notes reviewed Medical History Intestinal malabsorption Surgical History Obesity S/P laparoscopic sleeve gastrectomy Family History Family History Father Bipolar 1 disorder Mother HTN (hypertension) Son No problems noted. Daughter No problems noted. Brother No problems noted. Sister No problems noted. Unknown Ovarian cancer Social History Social History Alcohol intake: current Advance Directives: No Advance Directives Information Provided: No Patient : No Gender identity: female Physical Exam Vital Signs: Vital Signs: Last Vital Signs Temp 97.7 F 02/04/21 03:53 Pulse 51 02/04/21 05:47 Resp 13 02/04/21 05:47 BP 94/52 L 02/04/21 05:47 Pulse Ox 96 02/04/21 05:47 Body Mass Index 29.2 VITAL SIGNS: Reviewed. GENERAL: Well developed, well nourished, in no acute distress. HEAD: Normocephalic/atraumatic EYES: PERRLA, EOMI LUNGS: Normal breath sounds. No adventitious sounds or accessory muscle use. SpO2<96> CARDIOVASCULAR: Regular rate and rhythm without noted murmurs ABDOMEN: Soft, non-tender, non-distended with bowel sounds. SKIN: Inspection of the skin reveals no rashes NEUROLOGIC: Alert and oriented x 4. Course Course Course Narrative: 25-year-old female with history and clinical presentation consistent with a somewhat vasovagal episode and on review of all investigations patient has a significant UTI but on re-evaluation she states she feels much improved. Patient received initial antibiotics here in the emergency room and then was discharged with remaining course. MDM - Dizziness Lab Data Result diagrams: 02/04/21 04:08 02/04/21 04:08 Labs: Lab Results 02/04/21 02/04/21 02/04/21 Range/Units 04:08 04:08 04:08 WBC 12.3 H (4.8-10.8) X10*3/uL RBC 4.23 (4.20-5.50) X10*6/uL Hgb 12.2 (12.0-16.0) g/dl Hct 37.8 (37-47) % MCV 89.4 (80-98) fL MCH 28.8 (27.0-33.0) pg MCHC 32.3 (31.0-35.0) g/dl RDW 14.1 (11.0-16.0) % Plt Count 372 (160-400) X10*3/uL MPV 9.8 (9.4-12.3) fL Immature Gran % (Auto) 0.3 (0.0-0.4) % Neut % (Auto) 69.7 (45-73) % Lymph % (Auto) 22.9 (20-40) % [place] % (Auto) 6.2 (2-11) % Eos % (Auto) 0.7 (0-4) % Baso % (Auto) 0.2 (0-2) % Lymph # (Auto) 2.8 (1.2-4.9) X10*3/uL [place] # (Auto) 0.8 (0.1-1.2) X10*3/uL Eos # (Auto) 0.1 (0.0-0.4) X10*3/uL Baso # (Auto) 0.0 (0.0-0.2) X10*3/uL Abs Immat Gran (auto) 0.04 H (0.00-0.03) X10*3/uL Absolute Neuts (auto) 8.6 H (2.0-8.3) X10*3/uL Absolute Nucleated RBC 0.000 (0.0-0.012) X10*3/uL Nucleated RBC % (auto) 0.0 (0.0-0.2) /100WBC Sodium 141 (135-145) mmol/L Potassium 4.4 (3.3-5.1) mmol/L Chloride 106 (96-108) mmol/L Carbon Dioxide 29 (22-29) mmol/L Anion Gap 10 L (12-20) BUN 12 (9-16) mg/dL Creatinine 0.81 (0.5-1.4) mg/dL Estim Creat Clear Calc 102.9 Estimated GFR > 60 Random Glucose 95 (60-115) mg/dL Calcium 9.3 (8.4-10.2) mg/dL Total Bilirubin 0.3 (0.0-1.0) mg/dL AST 18 (5-31) U/L ALT 16 (0-31) U/L Alkaline Phosphatase 57 (39-117) U/L Total Protein 6.7 (6.5-8.0) g/dL Albumin 4.1 (3.5-5.0) g/dL Beta HCG, Quant < 2 mIU/mL Urine Color DARK YELLOW Urine Appearance HAZY Urine pH 6.0 (5.0-8.0) Ur Specific [place] >= 1.030 H (1.005-1.025) Urine Protein 1+ H (NEG-TRACE) MG/DL Urine Glucose (UA) NEG (NEG) MG/DL Urine Ketones 5 (NEG) MG/DL Urine Blood NEG (NEG) Urine Nitrite POS H (NEG) Ur Leukocyte Esterase 1+ H (NEG) Urine RBC 0 (0) /HPF Urine WBC 15-29 H (0-4) /HPF Ur Squamous Epith Cells TRACE /LPF Urine Bacteria 3+ /LPF Urine Mucus 3+ /LPF Urine Test 02/04/21 Range/Units 04:08 WBC (4.8-10.8) X10*3/uL RBC (4.20-5.50) X10*6/uL Hgb (12.0-16.0) g/dl Hct (37-47) % MCV (80-98) fL MCH (27.0-33.0) pg MCHC (31.0-35.0) g/dl RDW (11.0-16.0) % Plt Count (160-400) X10*3/uL MPV (9.4-12.3) fL Immature Gran % (Auto) (0.0-0.4) % Neut % (Auto) (45-73) % Lymph % (Auto) (20-40) % [place] % (Auto) (2-11) % Eos % (Auto) (0-4) % Baso % (Auto) (0-2) % Lymph # (Auto) (1.2-4.9) X10*3/uL [place] # (Auto) (0.1-1.2) X10*3/uL Eos # (Auto) (0.0-0.4) X10*3/uL Baso # (Auto) (0.0-0.2) X10*3/uL Abs Immat Gran (auto) (0.00-0.03) X10*3/uL Absolute Neuts (auto) (2.0-8.3) X10*3/uL Absolute Nucleated RBC (0.0-0.012) X10*3/uL Nucleated RBC % (auto) (0.0-0.2) /100WBC Sodium (135-145) mmol/L Potassium (3.3-5.1) mmol/L Chloride (96-108) mmol/L Carbon Dioxide (22-29) mmol/L Anion Gap (12-20) BUN (9-16) mg/dL Creatinine (0.5-1.4) mg/dL Estim Creat Clear Calc Estimated GFR Random Glucose (60-115) mg/dL Calcium (8.4-10.2) mg/dL Total Bilirubin (0.0-1.0) mg/dL AST (5-31) U/L ALT (0-31) U/L Alkaline Phosphatase (39-117) U/L Total Protein (6.5-8.0) g/dL Albumin (3.5-5.0) g/dL Beta HCG, Quant mIU/mL Urine Color Urine Appearance Urine pH (5.0-8.0) Ur Specific [place] (1.005-1.025) Urine Protein (NEG-TRACE) MG/DL Urine Glucose (UA) (NEG) MG/DL Urine Ketones (NEG) MG/DL Urine Blood (NEG) Urine Nitrite (NEG) Ur Leukocyte Esterase (NEG) Urine RBC (0) /HPF Urine WBC (0-4) /HPF Ur Squamous Epith Cells /LPF Urine Bacteria /LPF Urine Mucus /LPF Urine Test Cancelled Discharge Plan Discharge Clinical Impression: UTI (urinary tract infection), Vasovagal near-syncope Patient Disposition: Home, Self-Care Instructions: Urinary Tract Infection in Women (ED) Additional Instructions: 1. Resume any prescribed home medications. 2. Increase fluid hydration especially with water and complete your entire c ourse of antibiotics. 3. Follow-up with your primary care provider in the next 2-3 days for re-evalu ation and further outpatient management. Return to the ER for any acute worsening of symptoms. Prescriptions: New cephalexin 500 mg capsule 500 mg PO Q12H 5 Days Qty: 10 RF: 0 No Action metronidazole [Metrogel Vaginal] 0.75 % gel 1 appful vaginal BEDTIME 5 Days Qty: 70 RF: 0 levonorgestrel [Plan B One-Step] 1.5 mg tablet 1.5 mg PO ONCE 1 Days Qty: 1 RF: 0 tretinoin 0.025 % cream topical DIRECTED RF: 0 Dinorah 30 mg tablet 30 mg PO RF: 0 Mirena 20 mcg/24 hours (6 yrs) 52 mg intrauterine device vaginal ONCE RF: 0 peg 3350-electrolytes 236-22.74-6.74 -5.86 gram recon soln PO RF: 0 hydrocortisone valerate 0.2 % cream topical BID PRNRF: 0 ondansetron 4 mg tablet,disintegrating 4 mg PO DAILY PRNRF: 0 spironolactone 50 mg tablet 50 mg PO BID RF: 0 pantoprazole 40 mg tablet,delayed release (DR/EC) 40 mg PO DAILY RF: 0 Referrals: Nikhil Toney MD [Primary Care Provider] - 2 days
[2021-02-04] MEDS: cephALEXin 500 MG CAPSULE PO (06:41)
== END 2021-02-04 06:51 | disposition home or self-care (01) ==
PROVIDERS: Emergency Provider Student in an Organized Health Care Education/Training Program; PCP Internal Medicine
DX: N39.0 Urinary tract infection, site not specified (principal); R55 Syncope and collapse; R42 Dizziness and giddiness; Z79.899 Other long term (current) drug therapy
CPT/HCPCS: 36415; 80053; 81001; 84702; 85025; 87086; 87088; 87186; 93005; 99283; 99284

== ENCOUNTER 2021-02-16 15:51 | Outpatient (REF) | payer OTHER, SELFPAY ==
[2021-02-16 18:16] LABS: HCG Quantitative < 2 mIU/mL
== END 2021-02-16 15:52 | disposition home or self-care (01) ==
LOC: HO.LAB 15:51
PROVIDERS: PCP Internal Medicine; Visit Provider Internal Medicine
DX: N91.1 Secondary amenorrhea (principal)
CPT/HCPCS: 36415; 84702

== ENCOUNTER 2021-02-17 08:16 | Outpatient (REF) | payer OTHER, SELFPAY ==
[2021-02-17 12:27] LABS: Glucose Urine UA NEG (NEG); Leukocyte Esterase Urine NEG (NEG); Nitrite Urine NEG (NEG); PH 7.5 (5.0-8.0); Urine Blood NEG (NEG); Urine Ketones NEG (NEG); Urine Protein NEG (NEG-TRACE)
[2021-02-17 12:30] LABS: Appearance Urine CLEAR; Color Urine YELLOW
[2021-02-17 14:19] LABS: CT PCR NOT DETECTED (Not Detect.); NG PCR NOT DETECTED (Not Detect.)
[2021-02-18 08:40] LABS: BV Int Neg Control Negative (Negative); BV Int Pos Control Positive (Positive)
== END 2021-02-17 08:17 | disposition home or self-care (01) ==
LOC: HO.LAB 08:16
PROVIDERS: PCP Internal Medicine; Visit Provider Advanced Practice Midwife
DX: Z11.3 Encounter for screening for infections with a predominantly sexual mode of transmission (principal); N89.8 Other specified noninflammatory disorders of vagina; N92.6 Irregular menstruation, unspecified; Z20.2 Contact with and (suspected) exposure to infections with a predominantly sexual mode of transmission
CPT/HCPCS: 81003; 87480; 87491; 87510; 87591; 87660; 99212

== ENCOUNTER 2021-04-27 08:55 | Outpatient (REF) | payer OTHER, SELFPAY ==
[2021-04-27 16:01] LABS: CT PCR NOT DETECTED (Not Detect.); NG PCR NOT DETECTED (Not Detect.)
[2021-04-28 11:06] LABS: BV Int Neg Control Negative (Negative); BV Int Pos Control Positive (Positive)
== END 2021-04-27 08:56 | disposition home or self-care (01) ==
LOC: HO.LAB 08:55
PROVIDERS: Visit Provider Advanced Practice Midwife
DX: Z11.3 Encounter for screening for infections with a predominantly sexual mode of transmission (principal); N89.8 Other specified noninflammatory disorders of vagina; N92.6 Irregular menstruation, unspecified; Z20.2 Contact with and (suspected) exposure to infections with a predominantly sexual mode of transmission
CPT/HCPCS: 81003; 81025; 87480; 87491; 87510; 87591; 87660; 99212

== ENCOUNTER 2021-05-31 13:37 | Outpatient (REF) | payer OTHER, SELFPAY ==
[2021-05-31 16:12] LABS: HCG Quantitative 39316 mIU/mL
[2021-06-01 05:53] LABS: CT PCR NOT DETECTED (Not Detect.); NG PCR NOT DETECTED (Not Detect.)
== END 2021-05-31 13:38 | disposition home or self-care (01) ==
LOC: HO.LAB 13:37
PROVIDERS: Visit Provider Advanced Practice Midwife
DX: O20.0 Threatened abortion (principal)
CPT/HCPCS: 36415; 81025; 84702; 87491; 87591; 99212

== ENCOUNTER 2021-06-03 13:53 | Outpatient (REF) | payer OTHER, SELFPAY ==
--- NOTE | ~2021-06-03 | US_ITS ---
EXAMINATION: OBSTETRICAL ULTRASOUND, FIRST TRIMESTER HISTORY: 25-year-old with unknown LMP Viability LMP: N/A COMPARISON: None TECHNIQUE: Real time transabdominal imaging with color and M-mode Doppler. FINDINGS: A single, live IUP CRL of 7.0 mm c/w 6.5wks is noted. Heart Rate: 124 beats per minute. Both maternal ovaries are seen and appear normal. GESTATIONAL AGE: 1. GA from LMP: N/A wks 2. GA from AUA: 6.5 wks ESTIMATED DATE OF DELIVERY: 1. MARGO from LMP: N/A 2. MARGO from AUA: 01/22/2022 US/US OB <= 14 weeks fetus IMPRESSION: 1. A single live IUP 2. CRL corresponds to 6.5 weeks of gestation giving her an MARGO of 01/22/2022. 3. Normal ovaries Thank you very much for this referral. This note was generated with a voice recognition program. Please excuse any errors which may have been overlooked during my review of this note. Sometimes these errors may affect the content or meaning of a given sentence.
== END 2021-06-03 13:54 | disposition home or self-care (01) ==
LOC: HO.US 13:53
PROVIDERS: Visit Provider Advanced Practice Midwife
DX: O26.891 Other specified pregnancy related conditions, first trimester (principal); R10.2 Pelvic and perineal pain
CPT/HCPCS: 76801

== ENCOUNTER → 2021-06-06 14:24 | Outpatient (BNVA) | payer OTHER, SELFPAY | PROVIDERS: Visit Provider Advanced Practice Midwife ==

== ENCOUNTER 2021-06-21 13:28 | Outpatient (REF) | payer OTHER, SELFPAY ==
[2021-06-22 11:59] LABS: BV Int Neg Control Negative (Negative); BV Int Pos Control Positive (Positive)
[2021-06-22 14:29] LABS: CT PCR NOT DETECTED (Not Detect.); NG PCR NOT DETECTED (Not Detect.)
== END 2021-06-21 13:29 | disposition home or self-care (01) ==
LOC: HO.LAB 13:28
PROVIDERS: PCP Internal Medicine; Visit Provider Advanced Practice Midwife
DX: B00.9 Herpesviral infection, unspecified (principal); N90.89 Other specified noninflammatory disorders of vulva and perineum; Z20.2 Contact with and (suspected) exposure to infections with a predominantly sexual mode of transmission
CPT/HCPCS: 87255; 87480; 87491; 87510; 87591; 87660; 99212

== ENCOUNTER 2021-06-22 15:12 | Outpatient (REF) | payer OTHER, SELFPAY ==
[2021-06-22 18:31] LABS: Appearance Urine CLEAR; Color Urine YELLOW; Glucose Urine UA NEG (NEG); Leukocyte Esterase Urine NEG (NEG); Nitrite Urine NEG (NEG); Urine Blood NEG (NEG); Urine Ketones NEG (NEG); Urine Protein NEG (NEG-TRACE)
== END 2021-06-22 15:13 | disposition home or self-care (01) ==
LOC: HO.LAB 15:12
PROVIDERS: PCP Internal Medicine; Visit Provider Advanced Practice Midwife
DX: M54.9 Dorsalgia, unspecified (principal)
CPT/HCPCS: 81003

== ENCOUNTER → 2021-06-27 09:57 | Outpatient (BNVA) | payer OTHER, SELFPAY | PROVIDERS: PCP Internal Medicine; Visit Provider Advanced Practice Midwife | DX: Z34.81 Encounter for supervision of other normal pregnancy, first trimester (principal); Z3A.10 10 weeks gestation of pregnancy | CPT/HCPCS: 99212 ==

== ENCOUNTER 2021-07-04 08:51 | Outpatient (REF) | payer OTHER, SELFPAY ==
[2021-07-04 09:44] LABS: Hematocrit 35.5 % (37.0-47.0); Hemoglobin 11.8 g/dl (12.0-16.0); Mean Corpuscular HGB Conc 33.2 g/dl (31.0-35.0); Mean Corpuscular Hemoglobin 29.1 pg (27.0-33.0); Mean Corpuscular Volume 87.4 fL (80.0-98.0); Mean Platelet Volume 10.6 fL (9.4-12.3); Platelet Count 284 X10*3/uL (160-400); Red Blood Count 4.06 X10*6/uL (4.20-5.50); Red Cell Distribution Width 12.6 % (11.0-16.0); White Blood Count 5.5 X10*3/uL (4.8-10.8)
[2021-07-04 10:33] LABS: HIV AB/AG Nonreactive (Nonreactive); HIV Num 1 0.05 S/CO (0.00-0.99)
[2021-07-04 10:47] LABS: Syphilis Screen Reactive (Nonreactive)
[2021-07-04 10:53] LABS: HBsAGNum1 0.18 S/CO (0.00-0.99); Hepatitis B Surface Antigen Negative (Negative); ~HepC Num1 0.09 S/CO (0.00-0.79); ~Hepatitis C Antibody Nonreactive (Nonreactive)
[2021-07-04 12:05] LABS: Amphetamine Screen Urine Not Detected (Not Detect); Barbiturates, Urine Not Detected (Not Detect); Benzodiazepines Screen Urine Not Detected (Not Detect); Cannabinoid Screen Urine POSITIVE (Not Detect); Cocaine Screen Urine Not Detected (Not Detect); Fentanyl, urine Not Detected (Not Detect); Opiate Screen Urine Not Detected (Not Detect); Phencyclidine Screen Urine Not Detected (Not Detect)
[2021-07-05 08:51] LABS: Rubella IgG Antibody 7.19 Index
[2021-07-09 14:57] LABS: RPR Quantitative Non-Reactive (Nonreactive); T.Pallidum Particle Agg Test Reactive (Nonreactive)
== END 2021-07-04 08:52 | disposition home or self-care (01) ==
LOC: HO.LAB 08:51
PROVIDERS: PCP Internal Medicine; Visit Provider Advanced Practice Midwife
DX: O98.511 Other viral diseases complicating pregnancy, first trimester (principal); B00.9 Herpesviral infection, unspecified; Z3A.11 11 weeks gestation of pregnancy; Z86.19 Personal history of other infectious and parasitic diseases
CPT/HCPCS: 80307; 81003; 85027; 86592; 86762; 86780; 86787; 86803; 86850; 86900; 86901; 87340; 87389; 99212

== ENCOUNTER 2021-07-15 12:51 | Outpatient (REF) | payer OTHER, SELFPAY ==
--- NOTE | ~2021-07-15 | US_ITS ---
EXAMINATION: OBSTETRICAL ULTRASOUND, FIRST TRIMESTER HISTORY: 25-year-old at the 12.5 weeks of gestation NT screening COMPARISON: 06/03/2021 TECHNIQUE: Real time transabdominal imaging with color and M-mode Doppler. FINDINGS: A single, live IUP CRL of 64.7 mm c/w 12.6wks is noted. Heart Rate: 144 beats per minute. Normal yolk sac seen. NT was 1.26.mm. NB Present The embryo appears sonographically wnl for this GA. Both maternal ovaries are seen and appear normal. GESTATIONAL AGE: 1. Established GA: 12.5 wks 2. GA from AUA: 12.6 wks ESTIMATED DATE OF DELIVERY: 1. Established MARGO: 01/22/2022 2. MARGO from AUA: 01/21/2022 US/US OB 1T nuc measure IMPRESSION: 1. A single live IUP 2. Size equals dates 3. NT of 1.26 mm MFM Consultation: I reviewed the ultrasound findings along with significance of NT measurement. The NT of less than 3mm is generally reassuring. However, the sensitivity for T21 detection is only 60%. I reviewed the availability of serum aneuploidy screening which includes cell-free DNA and placental protein based tests. I discussed the sensitivity, false-positive rate, and other limitations associated with each test. I also reviewed the availability of invasive diagnostic tests that are associated small but definite risk of miscarriage. We also reviewed the differences between screening tests and diagnostic tests. After our discussion, she opted for the First trimester screening that is based on cell-free DNA or non-invasive testing (NIPT). Status post gastric sleeve: December 2019 Comment sac and likely suction in 10/13, required blood transfusion. Her blood type is O+ Father the baby was born with a hole in the heart. Did not require surgical correction. The result will be faxed to your office in approximately 7 days. A follow up at 18 weeks for survey has been scheduled. Thank you very much for this referral. Total time 30 minutes. The time spent was devoted to counseling the patient about the disease and diagnosis, coordinating care including reviewing her records, pertinent lab data and studies, as well as discussing diagnostic evaluation and workup, plan therapeutic interventions and future disposition of care. This includes any additional research needed to obtain further information in formulating the plan of care of this patient. This note was generated with a voice recognition program. Please excuse any errors which may have been overlooked during my review of this note. Sometimes these errors may affect the content or meaning of a given sentence.
== END 2021-07-15 12:52 | disposition home or self-care (01) ==
LOC: HO.US 12:51
PROVIDERS: Visit Provider Advanced Practice Midwife
DX: Z34.91 Encounter for supervision of normal pregnancy, unspecified, first trimester (principal); Z3A.12 12 weeks gestation of pregnancy
CPT/HCPCS: 76813

== ENCOUNTER 2021-07-18 09:20 | Outpatient (REF) | payer OTHER, SELFPAY ==
[2021-07-18 14:09] LABS: CT PCR NOT DETECTED (Not Detect.); NG PCR NOT DETECTED (Not Detect.)
[2021-07-19 09:17] LABS: BV Int Neg Control Negative (Negative); BV Int Pos Control Positive (Positive)
== END 2021-07-18 09:21 | disposition home or self-care (01) ==
LOC: HO.LAB 09:20
PROVIDERS: PCP Internal Medicine; Visit Provider Advanced Practice Midwife
DX: Z34.91 Encounter for supervision of normal pregnancy, unspecified, first trimester (principal); Z36.3 Encounter for antenatal screening for malformations; Z86.19 Personal history of other infectious and parasitic diseases; Z3A.13 13 weeks gestation of pregnancy
CPT/HCPCS: 87480; 87491; 87510; 87591; 87660; 99212

== ENCOUNTER → 2021-07-28 14:01 | Outpatient (BNVA) | payer OTHER, SELFPAY | PROVIDERS: PCP Internal Medicine; Visit Provider Obstetrics & Gynecology | DX: O26.852 Spotting complicating pregnancy, second trimester (principal); O98.512 Other viral diseases complicating pregnancy, second trimester; B00.9 Herpesviral infection, unspecified; O99.342 Other mental disorders complicating pregnancy, second trimester; F41.9 Anxiety disorder, unspecified; F32.A Depression, unspecified; O99.842 Bariatric surgery status complicating pregnancy, second trimester; Z3A.14 14 weeks gestation of pregnancy | CPT/HCPCS: 99212 ==

== ENCOUNTER 2021-07-29 11:38 | Outpatient (REF) | payer OTHER, SELFPAY ==
--- NOTE | ~2021-07-29 | US_ITS ---
EXAMINATION: OBSTETRICAL ULTRASOUND, Follow up HISTORY: EXAMINATION: OBSTETRICAL ULTRASOUND, Follow up HISTORY: 25-year-old at the 14.5 weeks of gestation Vaginal spotting COMPARISON: 07/15/2021 TECHNIQUE: Real time transabdominal imaging with color and M-mode Doppler. Transvaginal ultrasound was performed using endovaginal probe. PRESENTATION: Variable lie PLACENTA LOCATION: Posterior without previa. There is no evidence of subchorionic or retroplacental hematoma. AMNIOTIC FLUID: Normal MEASUREMENTS: 1. Biparietal Diameter: 3.0 cm; 15.3 wks 2. Head Circumference: 11.1 cm; 15.3 wks 3. Abdominal Circumference: 8.6 cm; 14.6 wks 4. Femur Length: 1.5 cm; 14.3 wks 5. Heart Rate: 152 beats per minute WEIGHT: Estimated weight is 104 grams (0 lbs 4 oz) -- 34 %. Cervix 3.2 cm without funneling or polyp (T/V). GESTATIONAL AGE: 1. Established GA: 14.5 wks 2. GA from AUA: 14.6 wks ESTIMATED DATE OF DELIVERY: 1. Established MARGO: 01/22/2022 2. MARGO from AUA: 01/21/2022 US/US OB transvaginal IMPRESSION: 1. A single live fetus with the biometry consistent with the dates 2. No evidence of subchorionic hematoma 3. Normal cervix (T/V) She reports light spotting only upon wiping and denies cramping. I reviewed today's findings and reassured her that the spotting is most likely a implantation bleed. She reports low risk N IPT. RECOMMENDATIONS: 1. f/u survey scheduled between 18-20 weeks. Thank you for allowing me to participate in her care. Total time 30 minutes. The time spent was devoted to counseling the patient about the disease and diagnosis, coordinating care including reviewing her records, pertinent lab data and studies, as well as discussing diagnostic evaluation and workup, plan therapeutic interventions and future disposition of care. This includes any additional research needed to obtain further information in formulating the plan of care of this patient. This note was generated with a voice recognition program. Please excuse any errors which may have been overlooked during my review of this note. Sometimes these errors may affect the content or meaning of a given sentence.
== END 2021-07-29 11:39 | disposition home or self-care (01) ==
LOC: HO.US 11:38
PROVIDERS: Visit Provider Obstetrics & Gynecology
DX: O26.852 Spotting complicating pregnancy, second trimester (principal); Z3A.14 14 weeks gestation of pregnancy
CPT/HCPCS: 76816; 76817

== ENCOUNTER → 2021-08-25 13:52 | Outpatient (BNVA) | payer OTHER, SELFPAY | PROVIDERS: PCP Internal Medicine; Visit Provider Obstetrics & Gynecology | DX: O99.322 Drug use complicating pregnancy, second trimester (principal); F12.90 Cannabis use, unspecified, uncomplicated; Z3A.18 18 weeks gestation of pregnancy | CPT/HCPCS: 81003; 99212 ==

== ENCOUNTER 2021-08-26 13:15 | Outpatient (REF) | payer OTHER, SELFPAY ==
--- NOTE | ~2021-08-26 | US_ITS ---
EXAMINATION: US OBSTETRICAL CLINICAL INFORMATION: 26-year-old at 18.5 weeks of gestation Screening for anomaly s/p gastric sleeve and abdominoplasty, requiring blood transfusion. COMPARISON: 07/29/2021 TECHNIQUE: Real-time transabdominal ultrasound was performed using C1-5 megahertz transducer. FINDINGS: A single, active, fetus is seen in transverse presentation. The placenta is posterior without previa, and the amniotic fluid volume is wnl. MEASUREMENTS: 1. Biparietal Diameter: 4.3 cm; 19.0 wks 2. Occipital Frontal Diameter: 5.7 cm 3. Head Circumference: 16.4 cm; 19.2 wks 4. Abdominal Circumference: 12.4 cm; 18.1 wks 5. Femur Length: 2.7 cm; 18.3 wks 6. Humerus Length: 2.7 cm; 18.3 wks 7. Tibia Length: 2.2 cm; 18.0 wks 8. Ulna Length: 4.5 cm; 18.6 wks 9. Lateral ventricle: 0.62 cm 10. Cerebellum: N/A cm; wks 11. Cisterna Magna: N/A cm 12. Nuchal Fold: N/A mm 13. Heart Rate: 156 beats per minute Rt ovary: Unable to visualize Lt ovary: Unable to visualize Cervical length 3.6 cm on T/A. GESTATIONAL AGE: 1. Established GA: 18.5 wks 2. GA from AUA: 18.5 wks ESTIMATED DATE OF DELIVERY: 1. Established MARGO: 01/22/2022 2. MARGO from [facility]: 01/22/2022 ANATOMY: The views of the posterior fossa, nuchal fold, cerebellum, cavum septum pellucid, profile, cardiac views, kidneys, cord insertion, spine, left hand were suboptimal due to position. The visualized anatomy includes but not limited to: 1. Cranium: Normal 2. Intracranial anatomy: Limited 3. face: Suboptimal profile 4. Heart: Limited. 5. Diaphragm: Normal 6. Abdominal wall: Normal 7. Cord Insertion: Suboptimal 8. Spine: Suboptimal 9. Stomach: Normal size and shape 10. Right Kidney: Suboptimal 11. Left Kidney: Suboptimal 12. 3 vessel cord: Normal 13. Upper extremity: Open hands, fifth digit. 14. Lower extremity: Tibia, fibula, bilateral feet. 15. Bladder: Normal 16. Genitalia: Female, patient aware US/US OB /maternal detail IMPRESSION: 1. Single, living, intrauterine with appropriate biometry. 2. Limited the survey due to position and maternal body habitus. No abnormalities were seen in visualized anatomy. DISCUSSION: I reviewed today's ultrasound findings. We discussed the limitations of ultrasound in diagnosing aneuploidy and other congenital abnormalities. I reviewed the differences between screening test and diagnostic test. Amniocentesis was discussed and declined. She was informed that the baseline incidence of congenital abnormalities is approximately 3-5%. Not all these conditions are diagnosable in utero. RECOMMENDATIONS: 1. A 3 week follow-up has been scheduled. Thank you for allowing me to participate in her care. Total time 30 minutes. The time spent was devoted to counseling the patient about the disease and diagnosis, coordinating care including reviewing her records, pertinent lab data and studies, as well as discussing diagnostic evaluation and workup, plan therapeutic interventions and future disposition of care. This includes any additional research needed to obtain further information in formulating the plan of care of this patient. This note was generated with a voice recognition program. Please excuse any errors which may have been overlooked during my review of this note. Sometimes these errors may affect the content or meaning of a given sentence.
== END 2021-08-26 13:16 | disposition home or self-care (01) ==
LOC: HO.US 13:15
PROVIDERS: Visit Provider Advanced Practice Midwife
DX: Z34.92 Encounter for supervision of normal pregnancy, unspecified, second trimester (principal); Z36.3 Encounter for antenatal screening for malformations; Z3A.18 18 weeks gestation of pregnancy; Z86.19 Personal history of other infectious and parasitic diseases
CPT/HCPCS: 76811

== ENCOUNTER 2021-09-16 09:23 | Outpatient (REF) | payer OTHER, SELFPAY ==
--- NOTE | ~2021-09-16 | US_ITS ---
EXAMINATION: US OBSTETRICAL CLINICAL INFORMATION: 26-year-old at the 21.5 weeks of gestation Follow-up the survey COMPARISON: 08/26/2021 TECHNIQUE: Real-time transabdominal ultrasound was performed using C1-5 megahertz transducer. FINDINGS: A single, active, fetus is seen in vertex presentation. The placenta is posterior without previa, and the amniotic fluid volume is wnl. Overall difficult exam due to abdominal scarring. MEASUREMENTS: 1. Biparietal Diameter: 5.1 cm; 21.3 wks 2. Occipital Frontal Diameter: 6.8 cm 3. Head Circumference: 18.8 cm; 21.1 wks 4. Abdominal Circumference: 15.9 cm; 21.1 wks 5. Femur Length: 3.6 cm; 21.4 wks 6. Humerus Length: 3.4 cm; 21.5 wks 7. Tibia Length: 3.1 cm; 21.3 wks 8. Ulna Length: 3.3 cm; 22.5 wks 9. Lateral ventricle: 0.7 cm 10. Cerebellum: 2.3 cm; 22.5 wks 11. Cisterna Magna: 0.44 cm 12. Nuchal Fold: N/A mm 13. Heart Rate: 146 beats per minute Rt ovary: Unable to visualize Lt ovary: Unable to visualize Cervical length 4 cm on T/A. GESTATIONAL AGE: 1. Established GA: 21.5 wks 2. GA from AUA: 21.3 wks ESTIMATED DATE OF DELIVERY: 1. Established MARGO: 01/22/2022 2. MARGO from AUA: 01/24/2022 Normal views of lateral cerebral ventricle, profile, nose/lips, 4ch view, LVOT, RVOT, aortic arch and gender. The views of the placental cord insertion and the fourth ventricle was suboptimal due to position. US/US OB follow up IMPRESSION: 1. A single active fetus is seen in vertex presentation 2. Size equals dates 3. The views of the PCI and fourth ventricle were suboptimal due to poor acoustics window. No abnormalities were seen in visualized anatomy. DISCUSSION: I reviewed today's ultrasound findings. We discussed the limitations of ultrasound in diagnosing aneuploidy and other congenital abnormalities. I reviewed the differences between screening test and diagnostic test. Amniocentesis was discussed and declined. She was informed that the baseline incidence of congenital abnormalities is approximately 3-5%. Not all these conditions are diagnosable in utero. RECOMMENDATIONS: 1. Follow-up in 4 weeks for an interval growth in the rest of the anatomy (scheduled). Thank you for allowing me to participate in her care. Total time 20 minutes. The time spent was devoted to counseling the patient about the disease and diagnosis, coordinating care including reviewing her records, pertinent lab data and studies, as well as discussing diagnostic evaluation and workup, plan therapeutic interventions and future disposition of care. This includes any additional research needed to obtain further information in formulating the plan of care of this patient. This note was generated with a voice recognition program. Please excuse any errors which may have been overlooked during my review of this note. Sometimes these errors may affect the content or meaning of a given sentence.
== END 2021-09-16 09:24 | disposition home or self-care (01) ==
LOC: HO.US 09:23
PROVIDERS: Visit Provider Advanced Practice Midwife
DX: Z34.92 Encounter for supervision of normal pregnancy, unspecified, second trimester (principal); Z36.3 Encounter for antenatal screening for malformations; Z3A.21 21 weeks gestation of pregnancy
CPT/HCPCS: 76816

== ENCOUNTER 2021-09-22 14:33 | Outpatient (REF) | payer OTHER, SELFPAY ==
[2021-09-22 17:41] LABS: Glucose 1 Hour PP 50gm Dose 52 mg/dL (60-140)
== END 2021-09-22 14:34 | disposition home or self-care (01) ==
LOC: HO.LAB 14:33
PROVIDERS: PCP Internal Medicine; Visit Provider Advanced Practice Midwife
DX: O23.592 Infection of other part of genital tract in pregnancy, second trimester (principal); B96.89 Other specified bacterial agents as the cause of diseases classified elsewhere; Z3A.22 22 weeks gestation of pregnancy
CPT/HCPCS: 36415; 81003; 99212

== ENCOUNTER 2021-10-28 13:36 | Outpatient (REF) | payer OTHER, SELFPAY ==
--- NOTE | ~2021-10-28 | US_ITS ---
EXAMINATION: OBSTETRICAL ULTRASOUND, Follow up HISTORY: 26-year-old at the 27.5 weeks of gestation Incomplete survey Size date discrepancy COMPARISON: 09/16/2021 TECHNIQUE: Real time transabdominal imaging with color and M-mode Doppler. PRESENTATION: Breech PLACENTA LOCATION: Posterior without previa AMNIOTIC FLUID: Normal MEASUREMENTS: 1. Biparietal Diameter: 6.7 cm; 27.1 wks 2. Head Circumference: 25.8 cm; 28.1 wks 3. Abdominal Circumference: 21.9 cm; 26.3 wks 4. Femur Length: 5.5 cm; 29.1 wks 5. Heart Rate: 143 beats per minute WEIGHT: EFW: 1084 grams (2 lbs 6 oz) -- 29 %. The views of the the cerebral ventricles, posterior fossa, fourth ventricle and PCI are within normal limits GESTATIONAL AGE: 1. Established GA: 27.5 wks 2. GA from A: 27.5 wks ESTIMATED DATE OF DELIVERY: 1. Established MARGO: 01/22/2022 2. MARGO from [facility]: 01/22/2022 US/US OB follow up IMPRESSION: 1. A single active fetus is in the breech presentation 2. Size equals dates 3. Normal views of the fourth ventricle and the PCI Thank you very much for this referral. Due to abdominoplasty, the images were somewhat the limited in quality. No abnormalities were seen in visualized anatomy. Recommend an interval growth evaluation in 4 weeks for her fundal height evaluation will not be reliable. (Scheduled) This note was generated with a voice recognition program. Please excuse any errors which may have been overlooked during my review of this note. Sometimes these errors may affect the content or meaning of a given sentence.
== END 2021-10-28 13:37 | disposition home or self-care (01) ==
LOC: HO.US 13:36
PROVIDERS: Visit Provider Advanced Practice Midwife
DX: Z34.93 Encounter for supervision of normal pregnancy, unspecified, third trimester (principal); Z36.3 Encounter for antenatal screening for malformations; Z3A.27 27 weeks gestation of pregnancy
CPT/HCPCS: 76816; 99212

== ENCOUNTER → 2021-11-15 10:26 | Outpatient (BNVA) | payer OTHER, SELFPAY | PROVIDERS: PCP Internal Medicine; Visit Provider Obstetrics & Gynecology | DX: O98.513 Other viral diseases complicating pregnancy, third trimester (principal); B00.9 Herpesviral infection, unspecified; O99.343 Other mental disorders complicating pregnancy, third trimester; F41.8 Other specified anxiety disorders; O99.843 Bariatric surgery status complicating pregnancy, third trimester; Z3A.30 30 weeks gestation of pregnancy | CPT/HCPCS: 99212 ==

== ENCOUNTER 2021-11-29 11:44 | Outpatient (REF) | payer OTHER, SELFPAY ==
[2021-11-29 13:12] LABS: Hematocrit 33.2 % (37.0-47.0); Hemoglobin 10.9 g/dl (12.0-16.0); Mean Corpuscular HGB Conc 32.8 g/dl (31.0-35.0); Mean Corpuscular Volume 88.3 fL (80.0-98.0); Mean Platelet Volume 9.7 fL (9.4-12.3); Platelet Count 359 X10*3/uL (160-400); Red Blood Count 3.76 X10*6/uL (4.20-5.50); Red Cell Distribution Width 12.5 % (11.0-16.0); White Blood Count 12.5 X10*3/uL (4.8-10.8)
[2021-11-29 13:25] LABS: Glucose 1 Hour PP 50gm Dose 92 mg/dL (60-140)
[2021-11-29 17:24] LABS: CT PCR NOT DETECTED (Not Detect.); NG PCR NOT DETECTED (Not Detect.)
[2021-11-30 07:09] LABS: Syphilis Screen Reactive (Nonreactive)
[2021-11-30 13:02] LABS: BV Int Neg Control Negative (Negative); BV Int Pos Control Positive (Positive)
[2021-12-08 07:55] LABS: T.Pallidum Particle Agg Test Reactive (Nonreactive)
[2021-12-08 07:56] LABS: RPR Quantitative Non-Reactive (Nonreactive)
== END 2021-11-29 11:45 | disposition home or self-care (01) ==
LOC: HO.LAB 11:44
PROVIDERS: Advanced Practice Midwife; PCP Internal Medicine; Visit Provider Advanced Practice Midwife
DX: O99.891 Other specified diseases and conditions complicating pregnancy (principal); N89.8 Other specified noninflammatory disorders of vagina; Z98.84 Bariatric surgery status; Z86.19 Personal history of other infectious and parasitic diseases; Z3A.28 28 weeks gestation of pregnancy
CPT/HCPCS: 36415; 81003; 85027; 86592; 86780; 87480; 87491; 87510; 87591; 87660; 99212

== ENCOUNTER → 2021-12-06 12:58 | Outpatient (BNVA) | payer OTHER, SELFPAY | PROVIDERS: PCP Internal Medicine; Visit Provider Advanced Practice Midwife | DX: O98.513 Other viral diseases complicating pregnancy, third trimester (principal); B00.9 Herpesviral infection, unspecified; O99.843 Bariatric surgery status complicating pregnancy, third trimester; O99.343 Other mental disorders complicating pregnancy, third trimester; F41.8 Other specified anxiety disorders; Z3A.33 33 weeks gestation of pregnancy; Z23 Encounter for immunization | CPT/HCPCS: 81003; 90471; 90715; 99212 ==

== ENCOUNTER 2021-12-16 08:57 | Outpatient (REF) | payer OTHER, SELFPAY ==
--- NOTE | ~2021-12-16 | US_ITS ---
EXAMINATION: OBSTETRICAL ULTRASOUND, Follow up HISTORY: 26-year-old at 5 weeks of gestation Size date discrepancy COMPARISON: 10/28/2021 TECHNIQUE: Real time transabdominal imaging with color and M-mode Doppler. PRESENTATION: Complete breech PLACENTA LOCATION: Posterior without previa AMNIOTIC FLUID: SHAHAB 17 cm MEASUREMENTS: 1. Biparietal Diameter: 8.1 cm; 32.5 wks 2. Head Circumference: 31.3 cm; 35.1 wks 3. Abdominal Circumference: 28.9 cm; 33.0 wks 4. Femur Length: 6.74 cm; 34.5 wks 5. Heart Rate: 152 beats per minute WEIGHT: EFW: 2205 grams (4 lbs 14 oz) -- 15 %. BIOPHYSICAL PROFILE: Motion: 2 Tone: 2 Breathin Amniotic Fluid: 2 Total score: 8/8 UA Doppler: S/D 2.7 GESTATIONAL AGE: 1. Established GA: 34.5 wks 2. GA from AUA: 34.0 wks ESTIMATED DATE OF DELIVERY: 1. Established MARGO: 01/22/2022 2. MARGO from AUA: 01/27/2022 US/US OB follow up IMPRESSION: 1. A single active fetus is in the complete breech presentation 2. Size equals dates, EFW 17%. Compared to prior exam, there has been slightly less than expected interval growth. 3. BPP 8/8, with the normal SHAHAB 4. Normal SD ratio in the umbilical artery I reviewed today's ultrasound findings and discussed the limitations of ultrasound and estimating weights. Although there has been slightly less than expected interval growth, the EFW corresponds to 17th percentile. Her to children had weight ranging between 6 1/2 to 7 1/2 pounds. Suggest a repeat growth in approximately 3 weeks (scheduled) Thank you very much for this referral. Total time 20 minutes. The time spent was devoted to counseling the patient about the disease and diagnosis, coordinating care including reviewing her records, pertinent lab data and studies, as well as discussing diagnostic evaluation and workup, plan therapeutic interventions and future disposition of care. This includes any additional research needed to obtain further information in formulating the plan of care of this patient. This note was generated with a voice recognition program. Please excuse any errors which may have been overlooked during my review of this note. Sometimes these errors may affect the content or meaning of a given sentence.
--- NOTE | ~2021-12-16 | US_ITS ---
EXAMINATION: OBSTETRICAL ULTRASOUND, Follow up HISTORY: 26-year-old at 5 weeks of gestation Size date discrepancy COMPARISON: 10/28/2021 TECHNIQUE: Real time transabdominal imaging with color and M-mode Doppler. PRESENTATION: Complete breech PLACENTA LOCATION: Posterior without previa AMNIOTIC FLUID: SHAHAB 17 cm MEASUREMENTS: 1. Biparietal Diameter: 8.1 cm; 32.5 wks 2. Head Circumference: 31.3 cm; 35.1 wks 3. Abdominal Circumference: 28.9 cm; 33.0 wks 4. Femur Length: 6.74 cm; 34.5 wks 5. Heart Rate: 152 beats per minute WEIGHT: EFW: 2205 grams (4 lbs 14 oz) -- 15 %. BIOPHYSICAL PROFILE: Motion: 2 Tone: 2 Breathin Amniotic Fluid: 2 Total score: 8/8 UA Doppler: S/D 2.7 GESTATIONAL AGE: 1. Established GA: 34.5 wks 2. GA from AUA: 34.0 wks ESTIMATED DATE OF DELIVERY: 1. Established MARGO: 01/22/2022 2. MARGO from A: 01/27/2022 US/US OB velocimetry umbilical ar IMPRESSION: 1. A single active fetus is in the complete breech presentation 2. Size equals dates, EFW 17%. Compared to prior exam, there has been slightly less than expected interval growth. 3. BPP 8/8, with the normal SHAHAB 4. Normal SD ratio in the umbilical artery I reviewed today's ultrasound findings and discussed the limitations of ultrasound and estimating weights. Although there has been slightly less than expected interval growth, the EFW corresponds to 17th percentile. Her to children had weight ranging between 6 1/2 to 7 1/2 pounds. Suggest a repeat growth in approximately 3 weeks (scheduled) Thank you very much for this referral. Total time 20 minutes. The time spent was devoted to counseling the patient about the disease and diagnosis, coordinating care including reviewing her records, pertinent lab data and studies, as well as discussing diagnostic evaluation and workup, plan therapeutic interventions and future disposition of care. This includes any additional research needed to obtain further information in formulating the plan of care of this patient. This note was generated with a voice recognition program. Please excuse any errors which may have been overlooked during my review of this note. Sometimes these errors may affect the content or meaning of a given sentence.
== END 2021-12-16 08:58 | disposition home or self-care (01) ==
LOC: HO.US 08:57
PROVIDERS: Visit Provider Advanced Practice Midwife
DX: Z34.93 Encounter for supervision of normal pregnancy, unspecified, third trimester (principal)
CPT/HCPCS: 76816; 76820

== ENCOUNTER → 2021-12-20 13:58 | Outpatient (BNVA) | payer OTHER, SELFPAY | PROVIDERS: PCP Internal Medicine; Visit Provider Advanced Practice Midwife | DX: Z34.83 Encounter for supervision of other normal pregnancy, third trimester (principal); Z3A.35 35 weeks gestation of pregnancy | CPT/HCPCS: 81003; 99212 ==

== ENCOUNTER 2021-12-27 14:14 | Outpatient (REF) | payer OTHER, SELFPAY ==
[2021-12-28 02:46] LABS: CT PCR NOT DETECTED (Not Detect.); NG PCR NOT DETECTED (Not Detect.)
== END 2021-12-27 14:15 | disposition home or self-care (01) ==
LOC: HO.LAB 14:14
PROVIDERS: Visit Provider Advanced Practice Midwife
DX: O26.893 Other specified pregnancy related conditions, third trimester (principal); B00.9 Herpesviral infection, unspecified; Z3A.36 36 weeks gestation of pregnancy; Z86.19 Personal history of other infectious and parasitic diseases; Z98.84 Bariatric surgery status
CPT/HCPCS: 59025; 81003; 87081; 87491; 87591; 99212

== ENCOUNTER 2021-12-30 11:22 | Outpatient (REF) | payer OTHER, SELFPAY ==
--- NOTE | ~2021-12-30 | US_ITS ---
EXAMINATION: OBSTETRICAL ULTRASOUND, Follow up HISTORY: 26-year-old at 36.5 weeks of gestation Breech presentation Size date discrepancy COMPARISON: 12/16/2021 TECHNIQUE: Real time transabdominal imaging with color and M-mode Doppler. PRESENTATION: Complete Breech PLACENTA LOCATION: Posterior without previa AMNIOTIC FLUID: SHAHAB 15.2 cm MEASUREMENTS: 1. Biparietal Diameter: 8.4 cm; 33.5 wks 2. Head Circumference: 32.8 cm; 37.2 wks 3. Abdominal Circumference: 29.1 cm; 33.1 wks 4. Femur Length: 7.4 cm; 38.0 wks 5. Heart Rate: 147 beats per minute WEIGHT: EFW: 2557 grams (5 lbs 10 oz) -- 14 %. BIOPHYSICAL PROFILE: Motion: 2 Tone: 2 Breathin Amniotic Fluid: 2 Total score: 8/8 UA Doppler: S/D 2.4 GESTATIONAL AGE: 1. Established GA: 36.5 wks 2. GA from AUA: 35.4 wks ESTIMATED DATE OF DELIVERY: 1. Established MARGO: 01/22/2022 2. MARGO from AUA: 01/30/2022 US/US OB velocimetry umbilical ar IMPRESSION: 1. A single active fetus is in complete breech presentation. 2. Size equals dates, EFW corresponds to 14th percentile. Compared to the previous exam, this represents appropriate interval growth 3. Reassuring testing and SHAHAB 4. Normal UA Doppler I reviewed today's findings and discussed the limitations of ultrasound and estimating weights. Even though the EFW corresponds to 14th percentile and the before meals is less than 10th, compared to the prior exam, there has been appropriate interval growth. In addition, the testing is reassuring including the umbilical artery Doppler study. She is scheduled for an external version and the delivery at the [facility]. Thank you very much for this referral. Total time 20 minutes. The time spent was devoted to counseling the patient about the disease and diagnosis, coordinating care including reviewing her records, pertinent lab data and studies, as well as discussing diagnostic evaluation and workup, plan therapeutic interventions and future disposition of care. This includes any additional research needed to obtain further information in formulating the plan of care of this patient. This note was generated with a voice recognition program. Please excuse any errors which may have been overlooked during my review of this note. Sometimes these errors may affect the content or meaning of a given sentence.
--- NOTE | ~2021-12-30 | US_ITS ---
EXAMINATION: OBSTETRICAL ULTRASOUND, Follow up HISTORY: 26-year-old at 36.5 weeks of gestation Breech presentation Size date discrepancy COMPARISON: 12/16/2021 TECHNIQUE: Real time transabdominal imaging with color and M-mode Doppler. PRESENTATION: Complete Breech PLACENTA LOCATION: Posterior without previa AMNIOTIC FLUID: SHAHAB 15.2 cm MEASUREMENTS: 1. Biparietal Diameter: 8.4 cm; 33.5 wks 2. Head Circumference: 32.8 cm; 37.2 wks 3. Abdominal Circumference: 29.1 cm; 33.1 wks 4. Femur Length: 7.4 cm; 38.0 wks 5. Heart Rate: 147 beats per minute WEIGHT: EFW: 2557 grams (5 lbs 10 oz) -- 14 %. BIOPHYSICAL PROFILE: Motion: 2 Tone: 2 Breathin Amniotic Fluid: 2 Total score: 8/8 UA Doppler: S/D 2.4 GESTATIONAL AGE: 1. Established GA: 36.5 wks 2. GA from AUA: 35.4 wks ESTIMATED DATE OF DELIVERY: 1. Established MARGO: 01/22/2022 2. MARGO from AUA: 01/30/2022 US/US OB follow up IMPRESSION: 1. A single active fetus is in complete breech presentation. 2. Size equals dates, EFW corresponds to 14th percentile. Compared to the previous exam, this represents appropriate interval growth 3. Reassuring testing and SHAHAB 4. Normal UA Doppler I reviewed today's findings and discussed the limitations of ultrasound and estimating weights. Even though the EFW corresponds to 14th percentile and the before meals is less than 10th, compared to the prior exam, there has been appropriate interval growth. In addition, the testing is reassuring including the umbilical artery Doppler study. She is scheduled for an external version and the delivery at the [facility]. Thank you very much for this referral. Total time 20 minutes. The time spent was devoted to counseling the patient about the disease and diagnosis, coordinating care including reviewing her records, pertinent lab data and studies, as well as discussing diagnostic evaluation and workup, plan therapeutic interventions and future disposition of care. This includes any additional research needed to obtain further information in formulating the plan of care of this patient. This note was generated with a voice recognition program. Please excuse any errors which may have been overlooked during my review of this note. Sometimes these errors may affect the content or meaning of a given sentence.
== END 2021-12-30 11:23 | disposition home or self-care (01) ==
LOC: HO.US 11:22
PROVIDERS: Visit Provider Obstetrics & Gynecology
DX: O26.849 Uterine size-date discrepancy, unspecified trimester (principal); O99.213 Obesity complicating pregnancy, third trimester; O32.1XX0 Maternal care for breech presentation, not applicable or unspecified; E66.9 Obesity, unspecified; Z3A.36 36 weeks gestation of pregnancy
CPT/HCPCS: 76816; 76820

== ENCOUNTER → 2022-01-04 14:23 | Outpatient (BNVA) | payer OTHER, SELFPAY | PROVIDERS: Visit Provider Obstetrics & Gynecology | DX: Z34.83 Encounter for supervision of other normal pregnancy, third trimester (principal); Z3A.37 37 weeks gestation of pregnancy | CPT/HCPCS: 59025; 99212 ==

== ENCOUNTER → 2022-05-09 13:43 | Outpatient (BNVA) | payer OTHER, SELFPAY | PROVIDERS: PCP Internal Medicine; Visit Provider Physician Assistant Surgical | DX: E66.9 Obesity, unspecified (principal); Z68.33 Body mass index [BMI] 33.0-33.9, adult; Z98.84 Bariatric surgery status | CPT/HCPCS: 99212 ==

== ENCOUNTER 2022-07-18 08:59 | Outpatient (REF) | payer OTHER, SELFPAY ==
[2022-07-18 15:08] LABS: CT PCR NOT DETECTED (Not Detect.); NG PCR NOT DETECTED (Not Detect.)
[2022-07-19 11:32] LABS: BV Int Neg Control Negative (Negative); BV Int Pos Control Positive (Positive)
== END 2022-07-18 09:00 | disposition home or self-care (01) ==
LOC: HO.LNP 08:59
PROVIDERS: PCP Internal Medicine; Visit Provider Advanced Practice Midwife
DX: Z11.3 Encounter for screening for infections with a predominantly sexual mode of transmission (principal); N92.6 Irregular menstruation, unspecified; Z20.2 Contact with and (suspected) exposure to infections with a predominantly sexual mode of transmission
CPT/HCPCS: 0353U; 81003; 87480; 87510; 87660; 99212

== ENCOUNTER 2022-11-14 15:37 | Emergency (ER) | payer OTHER, SELFPAY ==
--- NOTE | ~2022-11-14 | US_ITS ---
EXAMINATION: US OBSTETRICAL ULTRASOUND CLINICAL INFORMATION: Bleeding, status post medical on 10/31/2022. HCG not available. LMP approximately 09/19/2022. COMPARISON: OB ultrasound 12/30/2021. TECHNIQUE: Ultrasound of the maternal pelvis is performed using transabdominal and transvaginal transducers. Transvaginal imaging is performed due to inadequate visualization transabdominally. FINDINGS: No sonographic evidence of intrauterine gestation. The uterus is anteverted measuring 7.9 x 4.3 x 5 cm. There is an ill-defined, hyperechoic and highly vascular region in the right upper uterine myometrium of uncertain etiology. The endometrium measures 0.6 cm in thickness with a small amount of heterogeneous avascular content. The right ovary is asymmetrically enlarged compared to the left ovary. The right ovary measures 2.4 x 2.5 x 2.7 cm volume of 8.5 mL. The left ovary measures 1.9 x 1.5 x 0.8 cm, volume of 1.2 mL. There are very prominent engorged periuterine vessels bilaterally. No significant amount of free fluid. US/US OB pelvic and transvaginal IMPRESSION: No sonographic evidence of intrauterine gestation. Correlation with quantitative hCG recommended. Nonspecific highly vascular focal are mildly in the right upper uterine myometrium; one differential consideration includes the presence of an arteriovenous malformation. If clinically indicated, further evaluation with a pelvic MRI could be obtained. Endometrium demonstrates heterogeneous content with no vascularity, favoring to represent blood products. The right ovary is asymmetrically enlarged. No discrete associated masses. Preserved flow at the moment of this examination. Findings are nonspecific and clinical correlation for torsion should be obtained. A short-term follow-up pelvic ultrasound is recommended for reevaluation if clinically pertinent. Engorged periuterine vessels that could be seen with pelvic congestion syndrome in the appropriate clinical context.
[2022-11-14 16:35] VITALS: BP 129/68; PULSE 61; RESP 18; TEMP 36.8; O2SAT 100; BMI 33.7
--- NOTE | 2022-11-14 16:37 | ED.PREGNANCY ---
HPI - General Chief complaint: Vaginal Bleeding Stated complaint: excessive bleeding Time Seen by Provider: 11/14/22 20:17 Source: patient Mode of arrival: ambulatory Limitations: no limitations History of Present Illness HPI Narrative: This is a 27-year-old female A2 presents w/ heavy vaginal bleeding intermittently since 10/31/2022 [facility] [place] Patient tells me that since then she has been having intermittent bleeding however over the past few days she reports heavy vaginal bleeding, reports she is going through 1 pad per hour incompletely saturating it, she states that she is also passing large blood clots. She reports today was the worst day out of all of them. She denies nausea, vomiting, abdominal pain, headache, vision changes, dizziness, weakness chest pain, shortness of breath. Related Data Home Medications Medication Instructions Recorded Confirmed escitalopram oxalate 5 mg tablet 5 mg PO DAILY 07/18/22 spironolactone 50 mg tablet 50 mg PO BID 07/18/22 Previous Rx's Medication Instructions Recorded levonorgestrel 1.5 mg tablet (Plan 1.5 mg PO ONCE #1 tab 07/18/22 B One-Step) metronidazole 500 mg tablet 500 mg PO BID 7 days #14 tabs 07/19/22 Allergies Allergy/AdvReac Type Severity Reaction Status Date / Time No Known Allergies Allergy Verified 07/18/22 09:05 Review of Systems Review of Systems: Constitutional : No Fever, No Chills ENT/Mouth : No sore throat, No Rhinorrhea Eyes: No Eye Pain, No Redness Cardiovascular : No Chest Pain, No SOB Respiratory : No Cough, No Sputum, No Wheezing Gastrointestinal : No Nausea, No Vomiting, No Diarrhea, No abdominal pain, Genitourinary : positive irregular bleeding, No Dysuria, No Urinary Frequency, No pelvic pain Musculoskeletal : No Myalgias Skin : No rash Neuro : No Weakness, No Headache Psych : No Anxiety/Panic, No Depression Heme/Lymph: No bruising, No Lymphadenopathy Endocrine : No Polyuria, No Polydipsia All other systems reviewed and are negative Yes all other systems are reviewed and are negative [facility] Past Medical History Attestation statement: The following information was validated with the patient. Source: old records reviewed and nursing notes reviewed Medical History Acquired syphilis Anxiety and depression Back pain HSV-2 infection Intestinal malabsorption Surgical History H/O abdominoplasty H/O breast implant H/O gastric sleeve Hx of section Obesity S/P laparoscopic sleeve gastrectomy Family History Family History Father Bipolar 1 disorder Mother HTN (hypertension) Son No problems noted. Daughter No problems noted. Brother No problems noted. Sister No problems noted. Unknown Ovarian cancer Social History Social History Household Members: Children Housing: Apartment Alcohol intake: current Alcohol intake frequency: holidays/special occasions only Patient Tobacco Use Status: Never used Tobacco Smoked in Last 30 Days: No Use of substances other than those prescribed or required for medical reasons: No Substance Use Type: Marijuana Special latonya needs: No Agree to transfusion: Yes Advance Directives: No Advance Directives Information Provided: Yes Patient : No Gender identity: Female Physical Exam Vital Signs: Vital Signs: Last Vital Signs Temp 98.1 F 11/14/22 20:12 Pulse 66 11/14/22 20:12 Resp 14 11/14/22 20:12 BP 114/75 11/14/22 20:12 Pulse Ox 100 11/14/22 20:12 O2 Del Method Room Air 11/14/22 20:12 BMI result Body Mass Index 33.7 vss Appearance: Alert.? Oriented X3.? No acute distress.? Head: Normocephalic, atraumatic, no step-offs or deformities Eyes: Pupils equal, round and reactive to light.? ENT: Pharynx normal.? Neck: Normal inspection.? Neck supple.? CVS: Normal heart rate and rhythm.? Pulses normal.? Respiratory: No respiratory distress.? Breath sounds normal.? Abdomen: Soft and nontender.? Skin: Skin warm and dry.? Normal skin color.? Normal skin turgor.? Extremities: No lower extremity edema.? No calf ttp. 5/5 strength to bilateral upper and lower extremities Back: No midline tenderness, no C-spine tenderness, full range of motion, no CVA tenderness bilaterally Neuro: Oriented X 3.? No motor deficit.? No sensory deficit. CN 2-12 intact Sensitive exam: Leanna WILLSON laboratory tester. Patient has normal external genitalia. Cervical os appears closed however there is moderate bright red blood coming from the cervical. No lesions lumps or masses. Normal vaginal canal. No cervical motion tenderness. Patient tolerated procedure well. Course Course Course Narrative: RME: 27-year-old female s[facility]p [facility] c/o vaginal bleeding x2 weeks, but worsening over the past 2 days. Filling pad Q1hr with clots. Admits to lightheadedness and back pain Labs, type and screen, UA, pelvic ultrasound ordered Full HPI, ROS and PE to be performed by primary ED provider. Reevaluation(s) Reevaluation #1: Patient's CBC with a normocytic anemia hemoglobin of 10.6, hematocrit 33.0, appears to be around patient's baseline when compared to labs about a year ago on 11/29/2021. Chemistry unremarkable. Beta hCG 1979 likely secondary to . Patient's UA appears red, no signs of acute infection. Patient is O-positive. Patient has history of Rh positive unlikely that she will need RhoGAM however added Rh status to patient's labs. I did discuss this case with OBGYN Dr. eRid recommends that base full my exam, and a benign abdominal exam and stable H&H compared to last year and there is no signs of retained products of conceptions by ultrasound patient is to be discharged with warning signs and symptoms of retained products of conception to come back with heavy bleeding, pain, fever and follow-up in the office in 1-2 days. I did order repeat H&H to ensure patient is not as much blood and to make sure it is stable prior to discharge. On exam patient appears well, nontoxic and vital signs are stable. Time: 21:01 Reevaluation #2: Hemoglobin and hematocrit stable, around patient's baseline at this time will discharge home. Educated patient on diagnosis and treatment plan, answered all question, patient verbalizes understanding. At this time patient will be discharged home, advised to return with new or worsening symptoms. Educated on worrisome signs and symptoms and when to return. At this time I feel comfortable discharge home. Time: 21:05 Reevaluation #3: To note, I do not suspect ovarian torsion on this patient she does not have abdominal tenderness to palpation, nausea, vomiting or adnexal tenderness on pelvic exam. Time: 21:06 Medical Decision Making Medical Decision Making [facility] Narrative: 2056 27-year-old female presents for evaluation of irregular vaginal bleeding status post medication induced on 10/31/2022. No associated abdominal pain, pelvic pain, nausea, vomiting, flank pain. Physical exam significant for sensitive exam: Leanna PAS laboratory tester. Patient has normal external genitalia. Cervical os appears closed however there is moderate bright red blood coming from the cervical. No lesions lumps or masses. Normal vaginal canal. No cervical motion tenderness. Patient tolerated procedure well. This is likely dysfunctional uterine bleeding status post medication induced . Possible incomplete . I do not suspect ectopic . Unlikely that patient will require transfusion and has an acute blood-loss anemia. Will rule out electrolyte abnormalities and obtain hCG. Plan labs, imaging, urine, ABO Rh. Differential Diagnosis Differential Diagnoses: The differential diagnosis associated with the presentation includes This is likely dysfunctional uterine bleeding status post medication induced . Possible incomplete . I do not suspect ectopic . Unlikely that patient will require transfusion and has an acute blood-loss anemia. Will rule out electrolyte abnormalities and obtain hCG. Admission/Observation Consideration of admission/observation: Escalation of care including admission/observation considered Consult Healthcare Provider Management of the patient was discussed with: Sand [employer]isher Lab Data [facility] Lab Attestation statement: I reviewed the patient's lab results. 11/14/22 18:27 11/14/22 18:27 Labs: Lab Results 11/14/22 11/14/22 11/14/22 Range/Units 18:27 18:27 18:27 WBC 10.8 (4.8-10.8) X10*3/uL RBC 3.65 L (4.20-5.50) X10*6/uL Hgb 10.6 L (12.0-16.0) g/dl Hct 33.0 L (37.0-47.0) % MCV 90.4 (80.0-98.0) fL MCH 29.0 (27.0-33.0) pg MCHC 32.1 (31.0-35.0) g/dl RDW 12.9 (11.0-16.0) % Plt Count 375 (160-400) X10*3/uL MPV 10.2 (9.4-12.3) fL Immature Gran % (Auto) 0.5 H (0.0-0.4) % Neut % (Auto) 65.8 (45-73) % Lymph % (Auto) 27.0 (20-40) % [place] % (Auto) 5.2 (2-11) % Eos % (Auto) 1.0 (0-4) % Baso % (Auto) 0.5 (0-2) % Lymph # (Auto) 2.9 (1.2-4.9) X10*3/uL [place] # (Auto) 0.6 (0.1-1.2) X10*3/uL Eos # (Auto) 0.1 (0.0-0.4) X10*3/uL Baso # (Auto) 0.1 (0.0-0.2) X10*3/uL Abs Immat Gran (auto) 0.05 H (0.00-0.03) X10*3/uL Absolute Neuts (auto) 7.1 (2.0-8.3) x10*3/uL Absolute Nucleated RBC 0.000 (0.0-0.012) X10*3/uL Nucleated RBC % (auto) 0.0 (0.0-0.2) /100WBC PT 12.3 (10.0-13.1) SEC INR 1.1 (0.9-1.1) Sodium 139 (135-145) mmol/L Potassium 3.6 (3.3-5.1) mmol/L Chloride 108 (96-108) mmol/L Carbon Dioxide 24 (22-29) mmol/L Anion Gap 11 L (12-20) BUN 7 L (9-16) mg/dL Creatinine 0.81 (0.5-1.4) mg/dL Estim Creat Clear Calc 108.5 Estimated GFR > 60 Random Glucose 76 (60-115) mg/dL Calcium 9.2 (8.4-10.2) mg/dL Magnesium 2.1 (1.6-2.6) mg/dL Total Bilirubin 0.4 (0.0-1.0) mg/dL Direct Bilirubin 0.1 (0.0-0.5) mg/dL AST 16 (5-31) U/L ALT 12 (0-31) U/L Alkaline Phosphatase 53 (39-117) U/L Total Protein 6.8 (6.5-8.0) g/dL Albumin 4.2 (3.5-5.0) g/dL Lipase 19 (8-78) U/L Beta HCG, Quant 1979 mIU/mL Urine Color Urine Appearance Urine pH (5.0-9.0) Ur Specific [place] (1.005-1.025) Urine Protein (Neg-Trace) mg/dL Urine Glucose (UA) (Negative) mg/dL Urine Ketones (Negative) mg/dL Urine Blood (Negative) Urine Nitrite (Negative) Ur Leukocyte Esterase (Negative) Blood Type 11/14/22 11/14/22 11/14/22 Range/Units 18:27 20:26 20:53 WBC 12.6 H (4.8-10.8) X10*3/uL RBC 3.52 L (4.20-5.50) X10*6/uL Hgb 10.4 L (12.0-16.0) g/dl Hct 31.6 L (37.0-47.0) % MCV 89.8 (80.0-98.0) fL MCH 29.5 (27.0-33.0) pg MCHC 32.9 (31.0-35.0) g/dl RDW 13.0 (11.0-16.0) % Plt Count 365 (160-400) X10*3/uL MPV 10.3 (9.4-12.3) fL Immature Gran % (Auto) 0.3 (0.0-0.4) % Neut % (Auto) 60.0 (45-73) % Lymph % (Auto) 31.8 (20-40) % [place] % (Auto) 6.4 (2-11) % Eos % (Auto) 1.1 (0-4) % Baso % (Auto) 0.4 (0-2) % Lymph # (Auto) 4.0 (1.2-4.9) X10*3/uL [place] # (Auto) 0.8 (0.1-1.2) X10*3/uL Eos # (Auto) 0.1 (0.0-0.4) X10*3/uL Baso # (Auto) 0.1 (0.0-0.2) X10*3/uL Abs Immat Gran (auto) 0.04 H (0.00-0.03) X10*3/uL Absolute Neuts (auto) 7.5 (2.0-8.3) x10*3/uL Absolute Nucleated RBC 0.000 (0.0-0.012) X10*3/uL Nucleated RBC % (auto) 0.0 (0.0-0.2) /100WBC PT (10.0-13.1) SEC INR (0.9-1.1) Sodium (135-145) mmol/L Potassium (3.3-5.1) mmol/L Chloride (96-108) mmol/L Carbon Dioxide (22-29) mmol/L Anion Gap (12-20) BUN (9-16) mg/dL Creatinine (0.5-1.4) mg/dL Estim Creat Clear Calc Estimated GFR Random Glucose (60-115) mg/dL Calcium (8.4-10.2) mg/dL Magnesium (1.6-2.6) mg/dL Total Bilirubin (0.0-1.0) mg/dL Direct Bilirubin (0.0-0.5) mg/dL AST (5-31) U/L ALT (0-31) U/L Alkaline Phosphatase (39-117) U/L Total Protein (6.5-8.0) g/dL Albumin (3.5-5.0) g/dL Lipase (8-78) U/L Beta HCG, Quant mIU/mL Urine Color RED Urine Appearance Turbid Urine pH 6.0 (5.0-9.0) Ur Specific [place] >= 1.030 H (1.005-1.025) Urine Protein 30 (1+) H (Neg-Trace) mg/dL Urine Glucose (UA) Negative (Negative) mg/dL Urine Ketones Negative (Negative) mg/dL Urine Blood Large (3+) H (Negative) Urine Nitrite Negative (Negative) Ur Leukocyte Esterase Negative (Negative) Blood Type O Positive Radiology Impression Discussion of test interpretation with radiology: I have reviewed the radiologist's reading. External Record Review External record reviewed: Inpatient record, Office record, Outpatient record, Prior outpatient labs, Prior outpatient radiology, Primary care record and Outside ED record Core Measures AMI core measures followed: Yes Measure exclusions: not indicated Critical Care Time Critical Care Time Critical Care Time: Yes Total Critical Care Time: 35 Attestation: I attest to this time spent taking care of the patient, obtaining history, physical, reviewing labs, imaging, speaking to my attending, speaking to specialist. Discharge Plan Discharge Clinical Impression: Dysfunctional uterine bleeding Patient Disposition: Home, Self-Care Instructions: Dysfunctional Uterine Bleeding (ED) Additional Instructions: Take your medications as prescribed. If you were prescribed antibiotics today, it is important that you take your medication to their entirety, do not skip any doses, do not finish them early. Follow-up with your primary care provider this week. Follow up with OBGYN tomorrow. Return to the emergency department with new or worsening symptoms. Such as fevers, chills, chest pain, shortness of breath, nausea, vomiting, dizziness, headache, vision changes, lethargy In case of emergency call 911 Return if you have heavy vaginal bleeding or bleeding through more than 2 pads in an hour US/US OB pelvic and transvaginal IMPRESSION: No sonographic evidence of intrauterine gestation. Correlation with quantitative hCG recommended. ? Nonspecific highly vascular focal are mildly in the right upper uterine myometrium; one differential consideration includes the presence of an arteriovenous malformation. If clinically indicated, further evaluation with a pelvic MRI could be obtained. ? Endometrium demonstrates heterogeneous content with no vascularity, favoring to represent blood products. ? The right ovary is asymmetrically enlarged. No discrete associated masses. Preserved flow at the moment of this examination. Findings are nonspecific and clinical correlation for torsion should be obtained. A short-term follow-up pelvic ultrasound is recommended for reevaluation if clinically pertinent. ? Engorged periuterine vessels that could be seen with pelvic congestion syndrome in the appropriate clinical context. Prescriptions: No Action metronidazole 500 mg tablet 500 mg PO BID 7 Days Qty: 14 0RF spironolactone 50 mg tablet 50 mg PO BID escitalopram oxalate 5 mg tablet 5 mg PO DAILY levonorgestrel [Plan B One-Step] 1.5 mg tablet 1.5 mg PO ONCE Qty: 1 4RF Referrals: Physician,Aroldo Rock [Primary Care Provider] - 2 days Rodrigo Reid MD [Physician] - 2 days Stand Alone Forms: Work/School Release
[2022-11-14 18:32] LABS: MANUAL DIFF FLAG NO
[2022-11-14 18:38] LABS: Basophils Absolute Auto 0.1 X10*3/uL (0.0-0.2); Basophils Percent Auto 0.5 % (0-2); Eosinophils Absolute Auto 0.1 X10*3/uL (0.0-0.4); Hemoglobin 10.6 g/dl (12.0-16.0); Imm Gran Abs Auto 0.05 X10*3/uL (0.00-0.03); Imm Gran Pct Auto 0.5 % (0.0-0.4); Lymphocytes Absolute Auto 2.9 X10*3/uL (1.2-4.9); Mean Corpuscular HGB Conc 32.1 g/dl (31.0-35.0); Mean Corpuscular Volume 90.4 fL (80.0-98.0); Mean Platelet Volume 10.2 fL (9.4-12.3); Monocytes Absolute Auto 0.6 X10*3/uL (0.1-1.2); Monocytes Percent Auto 5.2 % (2-11); Neutrophils Absolute Auto 7.1 x10*3/uL (2.0-8.3); Neutrophils Percent Auto 65.8 % (45-73); Platelet Count 375 X10*3/uL (160-400); Red Blood Count 3.65 X10*6/uL (4.20-5.50); Red Cell Distribution Width 12.9 % (11.0-16.0); White Blood Count 10.8 X10*3/uL (4.8-10.8)
[2022-11-14 18:41] LABS: INTERNATIONAL NORM RATIO 1.1 (0.9-1.1); Prothrombin Time 12.3 SEC (10.0-13.1)
[2022-11-14 18:56] LABS: Alanine Aminotransferase 12 U/L (0-31); Albumin Level 4.2 g/dL (3.5-5.0); Alkaline Phosphatase 53 U/L (39-117); Anion Gap 11 (12-20); Aspartate Amino Transferase 16 U/L (5-31); Bilirubin Direct 0.1 mg/dL (0.0-0.5); Bilirubin Total 0.4 mg/dL (0.0-1.0); Blood Urea Nitrogen 7 mg/dL (9-16); Calcium 9.2 mg/dL (8.4-10.2); Carbon Dioxide 24 mmol/L (22-29); Chloride 108 mmol/L (96-108); Creatinine Clr Calc Pharmacy 108.5; Estimated Glomerular Filt Rate > 60; Glucose Random 76 mg/dL (60-115); HCG Quantitative 1979 mIU/mL; Lipase 19 U/L (8-78); Magnesium 2.1 mg/dL (1.6-2.6); Potassium 3.6 mmol/L (3.3-5.1); Sodium 139 mmol/L (135-145); Total Protein 6.8 g/dL (6.5-8.0)
[2022-11-14 20:12] VITALS: BP 114/75; PULSE 66; RESP 14; TEMP 36.7; O2SAT 100
[2022-11-14 20:53] LABS: Appearance Urine Turbid; Glucose Urine UA Negative (Negative); Leukocyte Esterase Urine Negative (Negative); Nitrite Urine Negative (Negative); Specific Gravity - Urine >= 1.030 (1.005-1.025); UMIC TRIGGER UACC YES; Urine Blood Large (3+) (Negative); Urine Ketones Negative (Negative); Urine Protein 30 (1+) mg/dL (Neg-Trace)
[2022-11-14 20:56] LABS: Color Urine RED
[2022-11-14 20:57] LABS: MANUAL DIFF FLAG NO
[2022-11-14 21:02] LABS: Basophils Absolute Auto 0.1 X10*3/uL (0.0-0.2); Basophils Percent Auto 0.4 % (0-2); Eosinophils Absolute Auto 0.1 X10*3/uL (0.0-0.4); Eosinophils Percent Auto 1.1 % (0-4); Hematocrit 31.6 % (37.0-47.0); Hemoglobin 10.4 g/dl (12.0-16.0); Imm Gran Abs Auto 0.04 X10*3/uL (0.00-0.03); Imm Gran Pct Auto 0.3 % (0.0-0.4); Lymphocytes Percent Auto 31.8 % (20-40); Mean Corpuscular HGB Conc 32.9 g/dl (31.0-35.0); Mean Corpuscular Hemoglobin 29.5 pg (27.0-33.0); Mean Corpuscular Volume 89.8 fL (80.0-98.0); Mean Platelet Volume 10.3 fL (9.4-12.3); Monocytes Absolute Auto 0.8 X10*3/uL (0.1-1.2); Monocytes Percent Auto 6.4 % (2-11); Neutrophils Absolute Auto 7.5 x10*3/uL (2.0-8.3); Platelet Count 365 X10*3/uL (160-400); Red Blood Count 3.52 X10*6/uL (4.20-5.50); White Blood Count 12.6 X10*3/uL (4.8-10.8)
[2022-11-14 21:03] LABS: Bacteria Urine Trace (None Seen); Hyaline Casts Urine 0-2 /LPF (0-2); RBC Urine >20 /HPF (0-2); UACC Culture Trigger YES; WBC Urine 21-50 /HPF (0-5)
--- NOTE | 2022-11-14 21:59 | P.CONOB_ITS ---
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 The patient has been having intermittent bleeding however over the past few days she reports heavy vaginal bleeding associated with special blood, no nausea, vomiting, no abdominal pain. Blood type 0 positive, hCG 1996 cc:: CC: OB [facility] Past Medical History Medical History Acquired syphilis Anxiety and depression Back pain HSV-2 infection Intestinal malabsorption Family History Family History Father Bipolar 1 disorder Mother HTN (hypertension) Son No problems noted. Daughter No problems noted. Brother No problems noted. Sister No problems noted. Unknown Ovarian cancer Surgical History Surgical History H/O abdominoplasty H/O breast implant H/O gastric sleeve Hx of section Obesity S/P laparoscopic sleeve gastrectomy Social History Social History Household Members: Children Housing: Apartment Alcohol intake: current Alcohol intake frequency: holidays/special occasions only Patient Tobacco Use Status: Never used Tobacco Smoked in Last 30 Days: No Use of substances other than those prescribed or required for medical reasons: No Substance Use Type: Marijuana Special latonya needs: No Agree to transfusion: Yes Advance Directives: No Advance Directives Information Provided: Yes Patient : No Gender identity: Female Meds Allergies Allergy/AdvReac Type Severity Reaction Status Date / Time No Known Allergies Allergy Verified 07/18/22 09:05 Home Medications Medication Instructions Recorded Confirmed Last Taken Type escitalopram oxalate 5 mg tablet 5 mg PO DAILY 07/18/22 Unknown History spironolactone 50 mg tablet 50 mg PO BID 07/18/22 Unknown History BACTERIOLOGY TEACHER Physical Exam Vitals Vital signs: Temp Pulse Resp BP Pulse Ox O2 Del Method 98.1 F 66 14 114/75 100 Room Air 11/14/22 20:12 11/14/22 20:12 11/14/22 20:12 11/14/22 20:12 11/14/22 20:12 11/14/22 20:12 BMI result Body Mass Index 33.7 Additional Comments: Physical exam reported by ALFONSO Xiao Abdominal exam benign no tenderness, no rebound or guarding Pelvic exam minimal blood per vagina post cervix, no uterine, cervical or adnexal tenderness BACTERIOLOGY TEACHER - Results Labs 11/14/22 20:53 11/14/22 18:27 Labs: Short CBC 11/14/22 11/14/22 Range/Units 18:27 20:53 WBC 10.8 12.6 H (4.8-10.8) X10*3/uL Hgb 10.6 L 10.4 L (12.0-16.0) g/dl Hct 33.0 L 31.6 L (37.0-47.0) % Plt Count 375 365 (160-400) X10*3/uL BMP 11/14/22 18:27 Sodium 139 Potassium 3.6 Chloride 108 Carbon Dioxide 24 BUN 7 L Creatinine 0.81 Calcium 9.2 Liver Function 11/14/22 Range/Units 18:27 Total Bilirubin 0.4 (0.0-1.0) mg/dL Direct Bilirubin 0.1 (0.0-0.5) mg/dL AST 16 (5-31) U/L ALT 12 (0-31) U/L Alkaline Phosphatase 53 (39-117) U/L Albumin 4.2 (3.5-5.0) g/dL Urine 11/14/22 Range/Units 20:26 Urine Color RED Urine Appearance Turbid Urine pH 6.0 (5.0-9.0) Ur Specific [place] >= 1.030 H (1.005-1.025) Urine Protein 30 (1+) H (Neg-Trace) mg/dL Urine Glucose (UA) Negative (Negative) mg/dL Imaging US - abdomen: Radiologist's impression: ITS Impressions Pelvic/Transvag US 11/14/22 17:37 IMPRESSION: No sonographic evidence of intrauterine gestation. Correlation with quantitative hCG recommended. Nonspecific highly vascular focal are mildly in the right upper uterine myometrium; one differential consideration includes the presence of an arteriovenous malformation. If clinically indicated, further evaluation with a pelvic MRI could be obtained. Endometrium demonstrates heterogeneous content with no vascularity, favoring to represent blood products. The right ovary is asymmetrically enlarged. No discrete associated masses. Preserved flow at the moment of this examination. Findings are nonspecific and clinical correlation for torsion should be obtained. A short-term follow-up pelvic ultrasound is recommended for reevaluation if clinically pertinent. Engorged periuterine vessels that could be seen with pelvic congestion syndrome in the appropriate clinical context. Assessment and Plan (1) Dysfunctional uterine bleeding: Status: Acute Since the patient is has minimal vaginal bleeding, pelvic exam shows no evidence of active, abdominal exam is benign, H&H stable compared to previous H&H historically, stable vital signs, ultrasound showing evidence of retained products of conception, recommended to discharge the patient with warnings signs and symptoms regarding retained products of conception, the patient is to come back to emergency room with heavy vaginal, fever or pain and to follow-up in the office to with repeat hCG Time Spent With Patient Time: Total time managing care of this patient today ____ minutes.
== END 2022-11-14 21:30 | disposition home or self-care (01) ==
PROVIDERS: Physician Assistant; Emergency Provider Internal Medicine
DX: N93.8 Other specified abnormal uterine and vaginal bleeding (principal)
CPT/HCPCS: 36415; 76801; 76817; 80048; 80076; 81001; 83690; 83735; 84702; 85025; 85610; 86900; 86901; 87086; 99284

== ENCOUNTER 2022-11-28 09:29 | Outpatient (REF) | payer OTHER, SELFPAY ==
[2022-11-28 16:04] LABS: HCG Quantitative 52 mIU/mL
[2022-11-29 04:52] LABS: Syphilis Screen Reactive (Nonreactive)
[2022-11-29 05:15] LABS: HBsAGNum1 0.36 S/CO (0.00-0.99); HIV AB/AG Nonreactive (Nonreactive); HIV Num 1 0.06 S/CO (0.00-0.99); Hepatitis B Surface Antigen Negative (Negative); ~HepC Num1 0.08 S/CO (0.00-0.79); ~Hepatitis C Antibody Nonreactive (Nonreactive)
[2022-12-04 12:56] LABS: RPR Quantitative Non-Reactive (Nonreactive); T.Pallidum Particle Agg Test Reactive (Nonreactive)
== END 2022-11-28 09:30 | disposition home or self-care (01) ==
LOC: HO.LAB 09:29
PROVIDERS: Obstetrics & Gynecology; Visit Provider Advanced Practice Midwife
DX: O03.9 Complete or unspecified spontaneous abortion without complication (principal); Z30.09 Encounter for other general counseling and advice on contraception; Z20.2 Contact with and (suspected) exposure to infections with a predominantly sexual mode of transmission
CPT/HCPCS: 36415; 84702; 86592; 86780; 86803; 87340; 87389; 99212

== ENCOUNTER 2022-11-28 15:29 | Outpatient (REF) | payer OTHER, SELFPAY | END 2022-11-28 15:30 | disposition home or self-care (01) | LOC: HO.LNP 15:29 | PROVIDERS: Visit Provider Obstetrics & Gynecology | DX: Z13.89 Encounter for screening for other disorder (principal) ==

== ENCOUNTER 2022-12-13 08:23 | Outpatient (REF) | payer OTHER, SELFPAY ==
[2022-12-13 14:58] LABS: CT PCR NOT DETECTED (Not Detect.); NG PCR NOT DETECTED (Not Detect.)
== END 2022-12-13 08:24 | disposition home or self-care (01) ==
LOC: HO.LNP 08:23
PROVIDERS: Visit Provider Obstetrics & Gynecology
DX: Z30.430 Encounter for insertion of intrauterine contraceptive device (principal)
CPT/HCPCS: 0353U; 58300; 81025; J7298

== ENCOUNTER 2023-01-23 13:35 | Outpatient (AMB) | payer OTHER, SELFPAY ==
--- NOTE | 2023-01-23 13:41 | MHC.OFFVIS ---
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 Complaining of some vaginal spotting . [facility] Medical History Acquired syphilis Anxiety and depression Back pain HSV-2 infection Intestinal malabsorption Surgical History H/O abdominoplasty H/O breast implant H/O gastric sleeve Hx of section Obesity S/P laparoscopic sleeve gastrectomy Family History Father Bipolar 1 disorder Mother HTN (hypertension) Son No problems noted. Daughter No problems noted. Brother No problems noted. Sister No problems noted. Unknown Ovarian cancer Social History Household Members: Children Both parents involved: Yes Caregiver staying overnight: No Housing: Apartment Alcohol intake: current Alcohol intake frequency: holidays/special occasions only Patient Tobacco Use Status: Never used Tobacco Substance Use Type: Marijuana Special latonya needs: No Agree to transfusion: Yes Gender identity: Female Female Reproductive History Menstrual Age of Menarche: 11 control method: progestin IUCD Date of last pap smear: 08/05/20 (negative) Review of Systems Const All systems reviewed & are unremarkable except as noted in HPI and below Physical Exam General: Yes no CVA tenderness External Female Exam: normal external appearance and normal appearance of the urethra Speculum Exam - Vagina: normal appearance of the vagina, normal palpation, no lesions and no masses Speculum Exam - Cervix: normal appearance of the cervix, normal palpation, no lesions, no masses, nontender and Other cervical findings present (IUD string in place) Bimanual exam- vagina & uterus: normal bimanual exam, normal palpation, uterine size normal, normal palpation, uterine shape normal, No Cervical tenderness present and non-tender Bimanual Exam- Adnexa, other: normal adnexae Back/Spine/Pelvis Back: no CVA tenderness Results AMB Test Urine AMB Test Urine Negative Last Edit by TAYLOR Boyd on 01/23/23 13:52 Assessment & Plan Assessment & Plan (1) IUD check up: Code(s): Z30.431 - Encounter for routine checking of intrauterine contraceptive device Plan: UPT done in the office was negative. Discussed with the patient the finding on physical exam, IUD string in place, the patient was reassured. Instructions given to patient to call in case of temperature above 100.4, severe cramping/pelvic pain, abnormal discharge or abnormal uterine bleeding or if she misses her. Otherwise follow-up at her annual exam appointment. All questions answered, the patient verbalized understanding. Orders: Orders AMB HCG Urine Test Today Z32.02 - Encounter for test, result negative Coding Level of Care Code Est Pt Level 3 (15201) Diagnoses IUD check up Z30.431
[2023-01-23 13:48] VITALS: BP 104/59; BMI 33.7
== END 2023-01-23 14:32 | disposition home or self-care (01) ==
LOC: HO.HWS 13:35
PROVIDERS: PCP Internal Medicine; Visit Provider Obstetrics & Gynecology
DX: Z30.431 Encounter for routine checking of intrauterine contraceptive device (principal); Z32.02 Encounter for pregnancy test, result negative
CPT/HCPCS: 99213

== ENCOUNTER → 2023-01-23 13:35 | Outpatient (BNVA) | payer OTHER, SELFPAY | PROVIDERS: PCP Internal Medicine; Visit Provider Obstetrics & Gynecology | DX: Z30.431 Encounter for routine checking of intrauterine contraceptive device (principal) | CPT/HCPCS: 81025; 99212 ==

== ENCOUNTER 2023-02-27 10:05 | Outpatient (AMB) | payer OTHER, SELFPAY ==
--- NOTE | 2023-02-27 10:07 | A.OFFPC_ITS ---
Vital Signs 02/27/23 10:09 Height 5 ft 3 in Weight 187 lb 4 oz BMI 33.2 BP 114/70 Blood Pressure Location Lt brachial Position Sitting Pulse 66 Pulse Source Pulse Oximeter Pulse Oximetry (%) 99 Oxygen Delivery Method Room Air Intake Visit Reasons: Blood Sugar/ Palpitations F/U Allergies No Known Allergies Allergy (Verified 02/27/23 10:09) Medication List - Last Reconciled 02/27/23 by Nikhil Toney MD levonorgestrel (Mirena) intrauterine spironolactone 50 mg PO BID Tobacco use date assessed: 02/27/23 Dental Screening Dental Screen Date: 02/27/23 Did you have a dental visit in the last 12 months?: Yes Did you have a dental problem in the last 6 months where you did not have access to dental care?: No Was dental information given to patient?: No HPI Blood Sugar/ Palpitations F/U HPI Details Patient is 27-year-old female who was last seen 2 years ago came in today with a chief complaint of ongoing palpitations, in 2019 she had Holter monitor for 1 day which only picked of 6 hours of data and it was recommended to repeated if patient continued to be symptomatic. We did the EKG today which showed normal sinus rhythm 62 beats per minute no ST- T abnormality There is no associated lightheadedness or presyncope with palpitations She is also complaining of headaches in the back of her head which has been happening more frequently now Patient says that she has noticed that it happens after she is done eating, headache usually resolves on its own after few minutes. There is no associated nausea vomiting abdominal pain She is complaining of easy bruising, if she has slight trauma to her skin she feels she end up having and ecchymotic discoloration I see that she have a history of thrombocytosis, I will be repeating CBC again along with other labs We will book a follow-up appointment for next week to go over the labs I have also ordered a Holter monitor for 7 days for the patient. her BMI is elevated at 33.2, discussed with the patient she said that she is aware and she is working on it. [facility] Medical History Acquired syphilis Anxiety and depression Back pain HSV-2 infection Intestinal malabsorption Surgical History H/O abdominoplasty H/O breast implant H/O gastric sleeve Hx of section Obesity S/P laparoscopic sleeve gastrectomy Family History Father Bipolar 1 disorder Mother HTN (hypertension) Son No problems noted. Daughter No problems noted. Brother No problems noted. Sister No problems noted. Unknown Ovarian cancer Social History Household Members: Children Both parents involved: Yes Caregiver staying overnight: No Housing: Apartment Alcohol intake: current Alcohol intake frequency: holidays/special occasions only Patient Tobacco Use Status: Never used Tobacco e-Cigarette/Vaping Use: Never Used Substance Use Type: Marijuana Special latonya needs: No Agree to transfusion: Yes service: No Current occupational status: employed Gender identity: Female Cognitive needs: No Hearing needs: No Vision needs: No Female Reproductive History Menstrual Age of Menarche: 11 Questionnaire PHQ-9 Over the last 2 weeks, how often have you been bothered by any of the following problems? 1. Little interest or pleasure in doing things: not at all 2. Feeling down, depressed, or hopeless: not at all 3. Trouble falling or staying asleep, or sleeping too much: not at all 4. Feeling tired or having little energy: not at all 5. Poor appetite or overeating: not at all 6. Feeling bad about yourself - or that you are a failure or have let yourself or your family down: not at all 7. Trouble concentrating on things, such as reading the newspaper or watching television: not at all 8. Moving or speaking so slowly that other people could have noticed. Or the opposite - being so fidgety or restless that you have been moving around a lot more than usual: not at all 9. Thoughts that you would be better off or of hurting yourself in some way: not at all Total score: 0 Depression Screening Interpretation: Negative 96431 - PHQ-9 Billing: Yes Source: Developed by Drs. Caesar Corcoran, Dina Sanchez, Reese Lugo and colleagues, with an educational felix from [employer]. [employer] Questionnaire I am a: Patient What is your living situation today?: I have a steady place to live Within the past 12 months, did the food you bought not last and you didn't have the money to get more?: Never true Within the past 12 months, did you worry whether your food would run out before you got money to buy more?: Never true Do you have trouble paying for medicines?: No Do you have trouble getting transportation to medical appointments?: No Do you have trouble paying your heating and electricity bill?: No Do you have trouble taking care of your child, family member or friend?: No Do you have trouble with day-to-day activities such as bathing, preparing meals, shopping, managing finances, etc.?: No Are you currently unemployed and looking for a job?: No Are you interested in more education?: No Please select the resources that you would like help with: None Currently or been in a relationship where the following occur: no concerns reported AUDIT C Alcohol Use Questionnaire (AUDIT-C) 1. How often do you have a drink containing alcohol?: 2-4 times a month 2. How many drinks containing alcohol do you have on a typical day when you are drinking?: 1 or 2 3. How often do you have six or more drinks on one occasion?: Never Total Score: 2 Score Reviewed/Action Taken: Yes Review of Systems Const Denies chills and Denies fever(s) ENT Denies epistaxis and Denies nasal discharge Card Denies chest pain Resp Denies chest congestion, Denies cough and Denies hemoptysis GI Denies diarrhea and Denies nausea Skin/Breast Denies rash Neuro Reports no additional complaints Psych Reports no additional complaints Endo Reports no additional complaints Physical exam (Primary Care) Vital Signs: Last Vital Signs Pulse 66 02/27/23 10:09 BP 114/70 02/27/23 10:09 Pulse Ox 99 02/27/23 10:09 Oxygen Delivery Method Room Air 02/27/23 10:09 BMI result Body Mass Index 33.2 Tobacco/Smoking Status: Tobacco use Status Tobacco use date assessed 02/27/23 02/27/23 10:12 Patient Tobacco Use Status Never used Tobacco 02/27/23 10:12 e-Cigarette/Vaping Use Never Used 02/27/23 10:12 Depression Screening Interpretation: Negative Currently or been in a relationship where the following occur: no concerns reported Const General: cooperative, comfortable and no acute distress Orientation/consciousness: patient oriented x3 HENMT Head: Yes normocephalic Eyes General: appearance normal, both eyes and all related structures Neck Neck: Yes supple Resp Effort & Inspection: normal respiratory effort, no cough and no stridor Cardio Rhythm: regular rhythm Heart sounds: S1 normal heart sound present and S2 normal heart sound present Skin General skin exam: turgor normal Neuro General: patient oriented x3, tone normal and moves all extremities Extrem Right lower extremity: no edema Left lower extremity: no edema Office Procedures EKG [id number], Complete Assessment and Plan Assessment & Plan (1) Palpitation: Code(s): R00.2 - Palpitations (2) Easy bruising: Code(s): R23.8 - Other skin changes (3) Nausea: Code(s): R11.0 - Nausea (4) Recurrent headache: Code(s): R51.9 - Headache, unspecified (5) Anemia: Code(s): D64.9 - Anemia, unspecified Qualifiers: Anemia type: iron deficiency Iron deficiency anemia type: chronic blood loss Qualified Code(s): D50.0 - Iron deficiency anemia secondary to blood loss (chronic) (6) Thrombocytosis: Code(s): D47.3 - Essential (hemorrhagic) thrombocythemia (7) Obesity due to excess calories: Code(s): E66.09 - Other obesity due to excess calories Qualifiers: Body mass index: BMI 33.0-33.9 Obesity classification: adult class 1 (BMI 30 - 34.9) Serious obesity comorbidity presence: with serious comorbidity Qualified Code(s): E66.09 - Other obesity due to excess calories; Z68.33 - Body mass index [BMI] 33.0-33.9, adult Plan Patient is 27-year-old female who was last seen 2 years ago came in today with a chief complaint of ongoing palpitations, in 2019 she had Holter monitor for 1 day which only picked of 6 hours of data and it was recommended to repeated if patient continued to be symptomatic. We did the EKG today which showed normal sinus rhythm 62 beats per minute no ST- T abnormality There is no associated lightheadedness or presyncope with palpitations She is also complaining of headaches in the back of her head which has been happening more frequently now Patient says that she has noticed that it happens after she is done eating, headache usually resolves on its own after few minutes. There is no associated nausea vomiting abdominal pain She is complaining of easy bruising, if she has slight trauma to her skin she feels she end up having and ecchymotic discoloration I see that she have a history of thrombocytosis, I will be repeating CBC again along with other labs We will book a follow-up appointment for next week to go over the labs I have also ordered a Holter monitor for 7 days for the patient. her BMI is elevated at 33.2, discussed with the patient she said that she is aware and she is working on it. Orders: Orders ECG 7 day holter monitor Today R00.2 - Palpitations Vitamin B12 Today D47.3 - Essential (hemorrhagic) thrombocythemia, D64.9 - Anemia, unspecified, R00.2 - Palpitations, R11.0 - Nausea, R23.8 - Other skin changes, R51.9 - Headache, unspecified, Z68.31 - Body mass index [BMI] 31.0- 31.9, adult Comprehensive [place]. Panel Fast Today D47.3 - Essential (hemorrhagic) thrombocythemia, D64.9 - Anemia, unspecified, R00.2 - Palpitations, R11.0 - Nausea, R23.8 - Other skin changes, R51.9 - Headache, unspecified, Z68.31 - Body mass index [BMI] 31.0-31.9, adult Ferritin Today D47.3 - Essential (hemorrhagic) thrombocythemia, D64.9 - Anemia, unspecified, R00.2 - Palpitations, R11.0 - Nausea, R23.8 - Other skin changes, R51.9 - Headache, unspecified, Z68.31 - Body mass index [BMI] 31.0-31.9, adult Folate Today D47.3 - Essential (hemorrhagic) thrombocythemia, D64.9 - Anemia, unspecified, R00.2 - Palpitations, R11.0 - Nausea, R23.8 - Other skin changes, R51.9 - Headache, unspecified, Z68.31 - Body mass index [BMI] 31.0-31.9, adult Hemoglobin A1c Today D47.3 - Essential (hemorrhagic) thrombocythemia, D64.9 - Anemia, unspecified, R00.2 - Palpitations, R11.0 - Nausea, R23.8 - Other skin changes, R51.9 - Headache, unspecified, Z68.31 - Body mass index [BMI] 31.0- 31.9, adult Lipid Panel Today D47.3 - Essential (hemorrhagic) thrombocythemia, D64.9 - Anemia, unspecified, R00.2 - Palpitations, R11.0 - Nausea, R23.8 - Other skin changes, R51.9 - Headache, unspecified, Z68.31 - Body mass index [BMI] 31.0- 31.9, adult TSH reflex Free T4 Today D47.3 - Essential (hemorrhagic) thrombocythemia, D64.9 - Anemia, unspecified, R00.2 - Palpitations, R11.0 - Nausea, R23.8 - Other skin changes, R51.9 - Headache, unspecified, Z68.31 - Body mass index [BMI] 31.0- 31.9, adult Vitamin D 25-OH (D2 and D3) Today D47.3 - Essential (hemorrhagic) thrombocythemia, D64.9 - Anemia, unspecified, R00.2 - Palpitations, R11.0 - Nausea, R23.8 - Other skin changes, R51.9 - Headache, unspecified, Z68.31 - Body mass index [BMI] 31.0-31.9, adult Complete Blood Count Auto Diff Today D47.3 - Essential (hemorrhagic) th rombocythemia, D64.9 - Anemia, unspecified, R00.2 - Palpitations, R11.0 - Nausea, R23.8 - Other skin changes, R51.9 - Headache, unspecified, Z68.31 - Body mass index [BMI] 31.0-31.9, adult AMB EKG-In Office Today R00.2 - Palpitations Coding Level of Care Code Est Pt Level 5 (71533) Diagnoses Palpitation R00.2 Easy bruising R23.8 Nausea R11.0 Recurrent headache R51.9 Anemia D50.0 Anemia type: iron deficiency Iron deficiency anemia type: chronic blood loss Thrombocytosis D47.3 Obesity due to excess calories E66.09; Z68.33 Body mass index: BMI 33.0-33.9 Obesity classification: adult class 1 (BMI 30 - 34.9) Serious obesity comorbidity presence: with serious comorbidity CPT Codes EKG - CPT: [id number], Complete ([id number]) Time Spent (min) 45 Comment 5 minute preparation, 25 with patient, 15 charting coordination of care
[2023-02-27 10:09] VITALS: BP 114/70; PULSE 66; O2SAT 99; BMI 33.2
== END 2023-02-27 10:31 | disposition home or self-care (01) ==
PROVIDERS: PCP Internal Medicine; Visit Provider Internal Medicine
DX: R00.2 Palpitations (principal); D47.3 Essential (hemorrhagic) thrombocythemia; E66.09 Other obesity due to excess calories; Z68.33 Body mass index [BMI] 33.0-33.9, adult; R23.8 Other skin changes; R11.0 Nausea; R51.9 Headache, unspecified; D50.0 Iron deficiency anemia secondary to blood loss (chronic)
CPT/HCPCS: 93000; 99215

== ENCOUNTER 2023-03-01 08:44 | Outpatient (REF) | payer OTHER, SELFPAY ==
[2023-03-01 08:53] LABS: MANUAL DIFF FLAG NO
[2023-03-01 09:08] LABS: Basophils Absolute Auto 0.1 X10*3/uL (0.0-0.2); Basophils Percent Auto 0.8 % (0-2); Eosinophils Absolute Auto 0.1 X10*3/uL (0.0-0.4); Eosinophils Percent Auto 1.2 % (0-4); Hematocrit 38.1 % (37.0-47.0); Hemoglobin 11.9 g/dl (12.0-16.0); Imm Gran Abs Auto 0.02 X10*3/uL (0.00-0.03); Imm Gran Pct Auto 0.3 % (0.0-0.4); Lymphocytes Absolute Auto 1.9 X10*3/uL (1.2-4.9); Lymphocytes Percent Auto 28.5 % (20-40); Mean Corpuscular HGB Conc 31.2 g/dl (31.0-35.0); Mean Corpuscular Hemoglobin 26.6 pg (27.0-33.0); Mean Platelet Volume 10.1 fL (9.4-12.3); Monocytes Absolute Auto 0.4 X10*3/uL (0.1-1.2); Monocytes Percent Auto 6.6 % (2-11); Neutrophils Absolute Auto 4.1 x10*3/uL (2.0-8.3); Neutrophils Percent Auto 62.6 % (45-73); Platelet Count 394 X10*3/uL (160-400); Red Blood Count 4.48 X10*6/uL (4.20-5.50); Red Cell Distribution Width 14.6 % (11.0-16.0); White Blood Count 6.5 X10*3/uL (4.8-10.8)
[2023-03-01 09:45] LABS: Alanine Aminotransferase 19 U/L (0-31); Albumin Level 4.2 g/dL (3.5-5.0); Alkaline Phosphatase 50 U/L (39-117); Anion Gap 11 (12-20); Aspartate Amino Transferase 26 U/L (5-31); Bilirubin Total 0.5 mg/dL (0.0-1.0); Blood Urea Nitrogen 11 mg/dL (9-16); Calcium 9.4 mg/dL (8.4-10.2); Carbon Dioxide 27 mmol/L (22-29); Chloride 108 mmol/L (96-108); Cholesterol 124 mg/dL (<200); Estimated Glomerular Filt Rate > 60; Glucose Fasting 90 mg/dL (60-99); HDL Cholesterol 57 mg/dL (>40); LDL Cholesterol Calculated 63 mg/dL (<100); Potassium 4.1 mmol/L (3.3-5.1); Sodium 142 mmol/L (135-145); Total Protein 7.2 g/dL (6.5-8.0); Triglycerides 24 mg/dL (<150)
[2023-03-01 09:49] LABS: Estimated Average Glucose 91 mg/dL; Hemoglobin A1c % 4.8 % (<6.0)
[2023-03-01 10:03] LABS: Ferritin 12 ng/mL (10-122); TSH reflex Free T4 0.39 uIU/mL (0.32-4.0)
[2023-03-01 10:14] LABS: Folate 9.2 ng/mL (> or = 4.0); Vitamin B12 425 pg/mL (200-900)
[2023-03-07 14:42] LABS: Vitamin D 25-OH, D2 <4 ng/mL; Vitamin D 25-OH, D3 24 ng/mL; Vitamin D 25-OH, Total 24 ng/mL (30-100)
== END 2023-03-01 08:45 | disposition home or self-care (01) ==
LOC: HO.LAB 08:44
PROVIDERS: PCP Internal Medicine; Visit Provider Internal Medicine
DX: R23.8 Other skin changes (principal); R00.2 Palpitations; R51.9 Headache, unspecified; R11.0 Nausea; D64.9 Anemia, unspecified; D47.3 Essential (hemorrhagic) thrombocythemia
CPT/HCPCS: 36415; 80053; 80061; 82306; 82607; 82728; 82746; 83036; 84443; 85025

== ENCOUNTER 2023-03-07 08:54 | Outpatient (AMB) | payer OTHER, SELFPAY ==
--- NOTE | 2023-03-07 09:03 | MHC.PC.OV ---
Intake Visit Reasons: Follow up Intake Note: [phone] Allergies No Known Allergies Allergy (Verified 03/07/23 09:04) Medication List - Last Reconciled 03/07/23 by Nikhil Toney MD levonorgestrel (Mirena) intrauterine spironolactone 50 mg PO BID Tobacco use date assessed: 03/07/23 Dental Screening Dental Screen Date: 03/07/23 Did you have a dental visit in the last 12 months?: Yes Did you have a dental problem in the last 6 months where you did not have access to dental care?: No Was dental information given to patient?: Patient has dentist HPI Follow up HPI Details Patient continued to have palpitations especially when she is exerting, she says other day she was hiking and was feeling a lot of palpitations. She still waiting for Holter monitor appointment, we will get in touch with the cardio lab and see what is going on with that However she does not have any chest pain shortness of breath or presyncope. Her labs are reviewed, hemoglobin is now 11.9 ferritin level is 12 Kidney function liver functions are intact lipids are well controlled, sugar is within normal limit. Vitamin B12 is within normal limit thyroid function is intact Her headaches are also better than before. [facility] Medical History Acquired syphilis Anxiety and depression Back pain HSV-2 infection Intestinal malabsorption Surgical History Hx of section H/O gastric sleeve H/O abdominoplasty H/O breast implant S/P laparoscopic sleeve gastrectomy Obesity Family History Father Bipolar 1 disorder Mother HTN (hypertension) Son No problems noted. Daughter No problems noted. Brother No problems noted. Sister No problems noted. Unknown Ovarian cancer Social History Household Members: Children Both parents involved: Yes Caregiver staying overnight: No Housing: Apartment Alcohol intake: current Alcohol intake frequency: holidays/special occasions only Patient Tobacco Use Status: Never used Tobacco e-Cigarette/Vaping Use: Never Used Substance Use Type: Marijuana Special latonya needs: No Agree to transfusion: Yes service: No Current occupational status: employed Gender identity: Female Cognitive needs: No Hearing needs: No Vision needs: No Female Reproductive History Menstrual Age of Menarche: 11 Questionnaire AUDIT C Alcohol Use Questionnaire (AUDIT-C) 1. How often do you have a drink containing alcohol?: Monthly or less 2. How many drinks containing alcohol do you have on a typical day when you are drinking?: 1 or 2 3. How often do you have six or more drinks on one occasion?: Never Total Score: 1 Review of Systems Const Denies chills and Denies fever(s) ENT Denies epistaxis and Denies nasal discharge Card Denies chest pain Resp Denies chest congestion, Denies cough and Denies hemoptysis GI Denies diarrhea and Denies nausea Skin/Breast Denies rash Neuro Reports no additional complaints Psych Reports no additional complaints Endo Reports no additional complaints Physical exam (Primary Care) Tobacco/Smoking Status: Tobacco use Status Tobacco use date assessed 03/07/23 03/07/23 09:04 Patient Tobacco Use Status Never used Tobacco 03/07/23 09:04 e-Cigarette/Vaping Use Never Used 03/07/23 09:04 Telehealth Telehealth Location of provider rendering services: practice address Location of patient: address on file Patient Identification confirmed using: Name, : Yes Telehealth method: voice only Patient verbally consented to treatment: Yes Patient verbally consented to billing insurance company: Yes Minutes spent on Phone/Video with Pt.: 14 Assessment and Plan Assessment & Plan (1) Palpitation: Code(s): R00.2 - Palpitations (2) Recurrent headache: Code(s): R51.9 - Headache, unspecified Plan Patient continued to have palpitations especially when she is exerting, she says other day she was hiking and was feeling a lot of palpitations. She still waiting for Holter monitor appointment, we will get in touch with the cardio lab and see what is going on with that However she does not have any chest pain shortness of breath or presyncope. Her labs are reviewed, hemoglobin is now 11.9 ferritin level is 12 Kidney function liver functions are intact lipids are well controlled, sugar is within normal limit. Vitamin B12 is within normal limit thyroid function is intact Her headaches are also better than before. Coding Level of Care Code Tele Est Pt Level 3 (41623) Diagnoses Palpitation R00.2 Recurrent headache R51.9
== END 2023-03-07 12:15 | disposition home or self-care (01) ==
LOC: HO.HMGC 08:54
PROVIDERS: PCP Internal Medicine; Visit Provider Internal Medicine
DX: R00.2 Palpitations (principal); R51.9 Headache, unspecified
CPT/HCPCS: 99213

== ENCOUNTER → 2023-03-27 13:13 | Outpatient (REF) | payer OTHER, SELFPAY ==
--- NOTE | 2023-03-27 13:16 | HM_ITS ---
* Total monitoring time 4 days. * Underlying rhythm is sinus. Average ventricular rate 68/Min. Range 39 to 152/Min. * Rare supraventricular ectopy with low burden. * Very rare ventricular ectopy. 3 PVCs over the monitoring period. * No significant pauses or AV blocks. * Shortness of breath, rapid heartbeat in patient diary correlates with sinus rhythm. MTDD
== END ==
LOC: HO.CARD 13:13
PROVIDERS: PCP Internal Medicine; Visit Provider Internal Medicine
DX: R00.2 Palpitations (principal)
CPT/HCPCS: 93242

== ENCOUNTER → 2023-03-27 13:16 | Outpatient (BNV) | payer OTHER, SELFPAY | PROVIDERS: PCP Internal Medicine; Visit Provider Internal Medicine | DX: I47.10 Supraventricular tachycardia, unspecified (principal) | CPT/HCPCS: 93244 ==

== ENCOUNTER 2023-04-19 08:12 | Outpatient (AMB) | payer OTHER, SELFPAY ==
--- NOTE | 2023-04-19 08:37 | A.OFFPC_ITS ---
Intake Visit Reasons: Discuss Labs~ Allergies No Known Allergies Allergy (Verified 04/19/23 08:38) Medication List - Last Reconciled 04/19/23 by Nikhil Toney MD cholecalciferol (vitamin D3) 125 mcg PO DAILY 3 months levonorgestrel (Mirena) intrauterine spironolactone 50 mg PO BID Tobacco use date assessed: 04/19/23 Dental Screening Dental Screen Date: 04/19/23 Did you have a dental visit in the last 12 months?: No Did you have a dental problem in the last 6 months where you did not have access to dental care?: No Was dental information given to patient?: Patient has dentist HPI Discuss Labs~ HPI Details Patient is a 27-year-old female who suffers from anxiety and depression She has been complaining of palpitations off and on we did a Holter monitor, I have which showed * Total monitoring time 4 days. * Underlying rhythm is sinus. Average ventricular rate 68/Min. Range 39 to 152/Min. * Rare supraventricular ectopy with low burden. * Very rare ventricular ectopy. 3 PVCs over the monitoring period. * No significant pauses or AV blocks. * Shortness of breath, rapid heartbeat in patient diary correlates with sinus rhythm. Findings explained to patient She is currently seeing a therapist and waiting to see the psychiatrist. Patient says that she was on Seroquel in the past up to 400 mg. 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 She would like to be restarted on Seroquel but on the lower those. I have sent 25 mg tablets, patient is to start taking that at night. We will book a follow-up appointment in 3 weeks [facility] Medical History Acquired syphilis Anxiety and depression Back pain HSV-2 infection Intestinal malabsorption Surgical History Hx of section H/O gastric sleeve H/O abdominoplasty H/O breast implant S/P laparoscopic sleeve gastrectomy Obesity Family History Father Bipolar 1 disorder Mother HTN (hypertension) Son No problems noted. Daughter No problems noted. Brother No problems noted. Sister No problems noted. Unknown Ovarian cancer Social History Household Members: Children Both parents involved: Yes Caregiver staying overnight: No Housing: Apartment Alcohol intake: current Alcohol intake frequency: holidays/special occasions only Patient Tobacco Use Status: Never used Tobacco e-Cigarette/Vaping Use: Never Used Substance Use Type: Marijuana Special latonya needs: No Agree to transfusion: Yes service: No Current occupational status: employed Gender identity: Female Cognitive needs: No Hearing needs: No Vision needs: No Female Reproductive History Menstrual Age of Menarche: 11 Questionnaire AUDIT C Alcohol Use Questionnaire (AUDIT-C) 1. How often do you have a drink containing alcohol?: 2-4 times a month 2. How many drinks containing alcohol do you have on a typical day when you are drinking?: 1 or 2 3. How often do you have six or more drinks on one occasion?: Never Total Score: 2 Score Reviewed/Action Taken: Yes Review of Systems Const Denies chills and Denies fever(s) ENT Denies epistaxis and Denies nasal discharge Card Denies chest pain Resp Denies chest congestion, Denies cough and Denies hemoptysis GI Denies diarrhea and Denies nausea Skin/Breast Denies rash Neuro Reports no additional complaints Psych Reports no additional complaints Endo Reports no additional complaints Physical exam (Primary Care) Tobacco/Smoking Status: Tobacco use Status Tobacco use date assessed 04/19/23 04/19/23 08:38 Patient Tobacco Use Status Never used Tobacco 04/19/23 08:38 e-Cigarette/Vaping Use Never Used 04/19/23 08:38 Telehealth Telehealth Location of provider rendering services: practice address Location of patient: address on file Patient Identification confirmed using: Name, : Yes Telehealth method: video (Was attempted) Patient verbally consented to treatment: Yes Patient verbally consented to billing insurance company: Yes Patient informed of any privacy concerns related to visit: Yes Minutes spent on Phone/Video with Pt.: 16 Assessment and Plan Assessment & Plan (1) Palpitation: Code(s): R00.2 - Palpitations (2) Major depression, recurrent: Code(s): F33.9 - Major depressive disorder, recurrent, unspecified Qualifiers: Active/Remission status: in partial remission Qualified Code(s): F33.41 - Major depressive disorder, recurrent, in partial remission (3) Anxiety, generalized: Code(s): F41.1 - Generalized anxiety disorder Plan Patient is a 27-year-old female who suffers from anxiety and depression She has been complaining of palpitations off and on we did a Holter monitor, I have which showed * Total monitoring time 4 days. * Underlying rhythm is sinus. Average ventricular rate 68/Min. Range 39 to 152/Min. * Rare supraventricular ectopy with low burden. * Very rare ventricular ectopy. 3 PVCs over the monitoring period. * No significant pauses or AV blocks. * Shortness of breath, rapid heartbeat in patient diary correlates with sinus rhythm. Findings explained to patient She is currently seeing a therapist and waiting to see the psychiatrist. Patient says that she was on Seroquel in the past up to 400 mg. 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 She would like to be restarted on Seroquel but on the lower those. I have sent 25 mg tablets, patient is to start taking that at night. We will book a follow-up appointment in 3 weeks Medications: New quetiapine (Seroquel) 25 mg PO BEDTIME 30 tabs 0RF Coding Level of Care Code Tele Est Pt Level 4 (55768) Diagnoses Palpitation R00.2 Recurrent major depressive disorder, in partial remission F33.41 Active/Remission status: in partial remission Anxiety, generalized F41.1
== END 2023-04-19 10:04 | disposition home or self-care (01) ==
LOC: HO.HMGC 08:12
PROVIDERS: PCP Internal Medicine; Visit Provider Internal Medicine
DX: R00.2 Palpitations (principal); F33.41 Major depressive disorder, recurrent, in partial remission; F41.1 Generalized anxiety disorder
CPT/HCPCS: 99214

== ENCOUNTER 2023-05-10 06:46 | Outpatient (AMB) | payer OTHER, SELFPAY ==
--- NOTE | 2023-05-10 08:55 | A.OFFPC_ITS ---
Intake Visit Reasons: 3 Wk follow Up~ Allergies No Known Allergies Allergy (Verified 05/10/23 08:56) Medication List - Last Reconciled 05/10/23 by Nikhil Toney MD cholecalciferol (vitamin D3) 125 mcg PO DAILY 3 months levonorgestrel (Mirena) intrauterine quetiapine (Seroquel) 25 mg PO BEDTIME spironolactone 50 mg PO BID Tobacco use date assessed: 05/10/23 Dental Screening Dental Screen Date: 05/10/23 Did you have a dental visit in the last 12 months?: Yes Did you have a dental problem in the last 6 months where you did not have access to dental care?: No Was dental information given to patient?: Patient has dentist HPI 3 Wk follow Up~ HPI Details Patient is 27-year-old female this is a tele medicine be due follow-up Patient suffer from severe depression, she has done well with Seroquel in the past And wanted to be restarted, currently taking 25 mg of Seroquel. I am increasing to 50 mg as per patient's request She is feeling better but feels that she can use the higher dose. She is also concerned that she is forgetful, she will be having a conversation and 5 minutes letter she will not register what she talked about or what she answered. That been happening for past few weeks I have placed a referral for her to be evaluated by Neurology. [facility] Medical History Acquired syphilis Anxiety and depression Back pain HSV-2 infection Intestinal malabsorption Surgical History Hx of section H/O gastric sleeve H/O abdominoplasty H/O breast implant S/P laparoscopic sleeve gastrectomy Obesity Family History Father Bipolar 1 disorder Mother HTN (hypertension) Son No problems noted. Daughter No problems noted. Brother No problems noted. Sister No problems noted. Unknown Ovarian cancer Social History Household Members: Children Both parents involved: Yes Caregiver staying overnight: No Housing: Apartment Alcohol intake: current Alcohol intake frequency: holidays/special occasions only Patient Tobacco Use Status: Never used Tobacco e-Cigarette/Vaping Use: Never Used Substance Use Type: Marijuana Special latonya needs: No Agree to transfusion: Yes service: No Current occupational status: employed Gender identity: Female Cognitive needs: No Hearing needs: No Vision needs: No Female Reproductive History Menstrual Age of Menarche: 11 Questionnaire AUDIT C Alcohol Use Questionnaire (AUDIT-C) 1. How often do you have a drink containing alcohol?: Never 3. How often do you have six or more drinks on one occasion?: Never Total Score: 0 Score Reviewed/Action Taken: Yes Review of Systems Const Denies chills and Denies fever(s) ENT Denies epistaxis and Denies nasal discharge Card Denies chest pain Resp Denies chest congestion, Denies cough and Denies hemoptysis GI Denies diarrhea and Denies nausea Skin/Breast Denies rash Neuro Reports no additional complaints Psych Reports no additional complaints Endo Reports no additional complaints Physical exam (Primary Care) Tobacco/Smoking Status: Tobacco use Status Tobacco use date assessed 05/10/23 05/10/23 08:57 Patient Tobacco Use Status Never used Tobacco 05/10/23 08:57 e-Cigarette/Vaping Use Never Used 05/10/23 08:57 Telehealth Telehealth Location of provider rendering services: practice address Location of patient: address on file Patient Identification confirmed using: Name, : Yes Telehealth method: video Patient verbally consented to treatment: Yes Patient verbally consented to billing insurance company: Yes Patient informed of any privacy concerns related to visit: Yes Assessment and Plan Assessment & Plan (1) Memory deficit: Code(s): R41.3 - Other amnesia (2) Major depression, recurrent: Code(s): F33.9 - Major depressive disorder, recurrent, unspecified Qualifiers: Active/Remission status: in partial remission Qualified Code(s): F33.41 - Major depressive disorder, recurrent, in partial remission (3) Anxiety, generalized: Code(s): F41.1 - Generalized anxiety disorder (4) Forgetfulness: Code(s): R68.89 - Other general symptoms and signs Plan Patient is 27-year-old female this is a tele medicine be due follow-up Patient suffer from severe depression, she has done well with Seroquel in the past And wanted to be restarted, currently taking 25 mg of Seroquel. I am increasing to 50 mg as per patient's request She is feeling better but feels that she can use the higher dose. She is also concerned that she is forgetful, she will be having a conversation and 5 minutes letter she will not register what she talked about or what she answered. That been happening for past few weeks I have placed a referral for her to be evaluated by Neurology. Orders: Referrals Neurology Referral R41.3 - Other amnesia Medications: Changed From quetiapine (Seroquel) 25 mg PO BEDTIME 30 tabs 0RF To quetiapine 50 mg PO BEDTIME 30 days 30 tabs 0RF Coding Level of Care Code Tele Est Pt Level 3 (11277) Diagnoses Memory deficit R41.3 Recurrent major depressive disorder, in partial remission F33.41 Active/Remission status: in partial remission Anxiety, generalized F41.1 Forgetfulness R68.89 Time Spent (min) 14
== END 2023-05-10 11:18 | disposition home or self-care (01) ==
LOC: HO.HMGC 06:46
PROVIDERS: PCP Internal Medicine; Visit Provider Internal Medicine
DX: R41.3 Other amnesia (principal); F33.41 Major depressive disorder, recurrent, in partial remission; F41.1 Generalized anxiety disorder; R68.89 Other general symptoms and signs
CPT/HCPCS: 99213

== ENCOUNTER 2023-05-10 12:15 | Outpatient (REF) | payer OTHER, SELFPAY ==
[2023-05-10 14:02] LABS: HCG Quantitative < 2 mIU/mL
[2023-05-10 14:18] LABS: Syphilis Screen Reactive (Nonreactive)
[2023-05-11 08:17] LABS: HIV AB/AG Nonreactive (Nonreactive); HIV Num 1 0.06 S/CO (0.00-0.99); Hepatitis B Surface Antigen Negative (Negative); ~Hepatitis C Antibody Nonreactive (Nonreactive)
[2023-05-18 10:45] LABS: RPR Quantitative Non-Reactive (Nonreactive); T.Pallidum Particle Agg Test Reactive (Nonreactive)
== END 2023-05-10 12:16 | disposition home or self-care (01) ==
LOC: HO.HMGCLDS 12:15
PROVIDERS: PCP Internal Medicine; Visit Provider Obstetrics & Gynecology
DX: Z11.4 Encounter for screening for human immunodeficiency virus [HIV] (principal); O03.9 Complete or unspecified spontaneous abortion without complication; Z20.2 Contact with and (suspected) exposure to infections with a predominantly sexual mode of transmission
CPT/HCPCS: 36415; 84702; 86592; 86780; 86803; 87340; 87389

== ENCOUNTER 2023-05-29 08:34 | Outpatient (AMB) | payer OTHER, SELFPAY ==
[2023-05-29 08:44] VITALS: BP 112/86; PULSE 65; O2SAT 99; BMI 33.0
--- NOTE | 2023-05-29 08:44 | MHC.PC.OV ---
Vital Signs 05/29/23 08:44 Height 5 ft 3 in Weight 186 lb 8 oz BMI 33.0 BP 112/86 Blood Pressure Location Rt brachial Position Sitting Pulse 65 Pulse Source Pulse Oximeter Pulse Oximetry (%) 99 Oxygen Delivery Method Room Air Intake Visit Reasons: Physical exam Allergies No Known Allergies Allergy (Verified 05/29/23 08:45) Medication List - Last Reconciled 05/29/23 by Nikhil Toney MD cholecalciferol (vitamin D3) 125 mcg PO DAILY 3 months levonorgestrel (Mirena) intrauterine quetiapine 50 mg PO BEDTIME 30 days spironolactone 50 mg PO BID Tobacco use date assessed: 05/29/23 Dental Screening Dental Screen Date: 05/29/23 Did you have a dental visit in the last 12 months?: Yes Did you have a dental problem in the last 6 months where you did not have access to dental care?: No Was dental information given to patient?: Patient has dentist HPI Physical exam HPI Details Patient is 27-year-old female came in today for physical exam Patient is on Seroquel 50 mg, currently doing well, patient have a history of severe depression She is still waiting for neuro appointment patient was having memory difficulty which has improved after starting the Seroquel but she would still like to see the Neurology for evaluation. Complaining of lumbar spine pain which is chronic I have ordered the x-ray as well as physical therapy Labs were done February of this year reviewed with the patient She has OBGYN Patient also have breast implants BMI is elevated patient is trying to lose weight Follow-up 3 months physical exam 1 year ON LICENSE OF [facility] Medical History Acquired syphilis Anxiety and depression Back pain HSV-2 infection Intestinal malabsorption Surgical History Hx of section H/O gastric sleeve H/O abdominoplasty H/O breast implant S/P laparoscopic sleeve gastrectomy Obesity Family History Father Bipolar 1 disorder Mother HTN (hypertension) Son No problems noted. Daughter No problems noted. Brother No problems noted. Sister No problems noted. Unknown Ovarian cancer Social History Household Members: Children Both parents involved: Yes Caregiver staying overnight: No Housing: Apartment Alcohol intake: current Alcohol intake frequency: holidays/special occasions only Patient Tobacco Use Status: Never used Tobacco e-Cigarette/Vaping Use: Never Used Substance Use Type: Marijuana Special latonya needs: No Agree to transfusion: Yes service: No Current occupational status: employed Gender identity: Female Cognitive needs: No Hearing needs: No Vision needs: No Female Reproductive History Menstrual Age of Menarche: 11 Questionnaire PHQ-9 Over the last 2 weeks, how often have you been bothered by any of the following problems? 1. Little interest or pleasure in doing things: not at all 2. Feeling down, depressed, or hopeless: not at all 3. Trouble falling or staying asleep, or sleeping too much: not at all 4. Feeling tired or having little energy: not at all 5. Poor appetite or overeating: not at all 6. Feeling bad about yourself - or that you are a failure or have let yourself or your family down: not at all 7. Trouble concentrating on things, such as reading the newspaper or watching television: not at all 8. Moving or speaking so slowly that other people could have noticed. Or the opposite - being so fidgety or restless that you have been moving around a lot more than usual: not at all 9. Thoughts that you would be better off or of hurting yourself in some way: not at all Total score: 0 Depression Screening Interpretation: Negative Depression Screening Done: Yes 30620 - PHQ-9 Billing: Yes Source: Developed by Drs. Caesar Corcoran, Dina Snachez, Reese Lugo and colleagues, with an educational felix from [employer]. Thrive Questionnaire Date Thrive assessed: 05/29/23 I am a: Patient What is your living situation today?: I have a steady place to live Within the past 12 months, did the food you bought not last and you didn't have the money to get more?: Never true Within the past 12 months, did you worry whether your food would run out before you got money to buy more?: Never true Do you have trouble paying for medicines?: No Do you have trouble getting transportation to medical appointments?: No Do you have trouble paying your heating and electricity bill?: No Do you have trouble taking care of your child, family member or friend?: No Do you have trouble with day-to-day activities such as bathing, preparing meals, shopping, managing finances, etc.?: No Are you currently unemployed and looking for a job?: No Are you interested in more education?: No Please select the resources that you would like help with: None Currently or been in a relationship where the following occur: no concerns reported AUDIT C Alcohol Use Questionnaire (AUDIT-C) 1. How often do you have a drink containing alcohol?: Never 3. How often do you have six or more drinks on one occasion?: Never Total Score: 0 Score Reviewed/Action Taken: Yes LAURA-7 AMB Questionnaire LAURA-7 Date LAURA - 7 assessed: 05/29/23 Feeling nervous, anxious, or on edge: 0 = Not at all Not being able to stop or control worryin = Not at all Worrying too much about different things: 1 = Several days Trouble relaxin = Several days Being so restless that it is hard to sit still: 0 = Not at all Becoming easily annoyed or irritable: 0 = Not at all Feeling afraid as if something awful might happen: 0 = Not at all Total LAURA-7 score (0-4 normal; 5-9 mild; 10-14 moderate; 15-21 severe): 2 Source: Developed by Drs. Caesar Corcoran, Dina Sanchez, Reese Lugo and colleagues, with an educational felix from [employer]. LAURA-7 Assessment Billing LAURA-7 Assessment Tool: LAURA-7 Assessment 07881 Review of Systems Const Denies chills, Denies fever(s) and Denies headache(s) Eyes Denies blurry vision ENT Denies headache(s), Denies nasal discharge, Denies nasal obstruction, Denies odynophagia and Denies sinus pain Card Denies chest pain at rest and Denies chest pain with activity Resp Denies cough and Denies hemoptysis GI Denies diarrhea, Denies odynophagia, Denies vomiting and Denies hematemesis Reports as per HPI Musc Denies abnormal gait Skin/Breast Reports as per HPI Neuro Denies Neuro-related abnormal movements, Denies Abnormal speech present, Denies abnormal gait, Denies headache(s) and Denies Sensory deficit (Neuro) Psych Denies mood swings and Denies paranoia Endo Reports as per HPI Hever/Lymph Reports as per HPI Aller/Immun Reports as per HPI Physical exam (Primary Care) Vital Signs: Last Vital Signs Pulse 65 05/29/23 08:44 BP 112/86 05/29/23 08:44 Pulse Ox 99 05/29/23 08:44 Oxygen Delivery Method Room Air 05/29/23 08:44 BMI result Body Mass Index 33.0 Tobacco/Smoking Status: Tobacco use Status Tobacco use date assessed 05/29/23 05/29/23 08:47 Patient Tobacco Use Status Never used Tobacco 05/29/23 08:47 e-Cigarette/Vaping Use Never Used 05/29/23 08:47 PHQ-9: PHQ-9 Score PHQ-9: Total score 0 05/29/23 09:20 Depression Screening Interpretation: Negative Thrive Assessment: Date of Thrive Assessment Date Thrive assessed 05/29/23 05/29/23 09:20 Currently or been in a relationship where the following occur: no concerns reported Const General: cooperative, comfortable and no acute distress Orientation/consciousness: patient oriented x3 HENMT Head: Yes normocephalic and Yes atraumatic Eyes General: appearance normal, both eyes and all related structures Pupils: Equal, round and reactive pupils present EOM: EOMs intact bilaterally Neck Neck: Yes supple and No lymphadenopathy Thyroid: Thyroid normal Lymphatic: no lymphadenopathy noted Chest Breast/axilla palpation: normal palpation of the breasts Resp Effort & Inspection: normal respiratory effort and able to speak in complete sentences Auscultation: clear to auscultation bilaterally Cardio Heart sounds: S1 normal heart sound present and S2 normal heart sound present GI Palpation (GI): Soft to palpation and nontender Auscultation: normal bowel sounds General: Yes no CVA tenderness Back/Spine/Pelvis Back: no CVA tenderness Skin General skin exam: elasticity normal and turgor normal Neuro General: patient oriented x3 and gait normal Cranial nerves: Yes Equal, round and reactive pupils present Speech: No Abnormal speech present Sensory Exam: No Sensory deficit (Neuro) Coordination: tandem gait normal and Romberg test negative Extrem General: Yes normal exam except as noted and No edema Assessment and Plan Assessment & Plan (1) Lumbar pain: Code(s): M54.50 - Low back pain, unspecified (2) Encounter for general adult medical examination with abnormal findings: Code(s): Z00.01 - Encounter for general adult medical examination with abnormal findings (3) Hx of syphilis: Comment: Has been treated in past, [facility] tpa pos w rpr=nr, jun and november 2021; tPA positive with negative nonreactive RPR 11/28/2022. Code(s): Z86.19 - Personal history of other infectious and parasitic diseases (4) Obesity due to excess calories: Code(s): E66.09 - Other obesity due to excess calories Qualifiers: Body mass index: BMI 33.0-33.9 Obesity classification: adult class 1 (BMI 30 - 34.9) Serious obesity comorbidity presence: with serious comorbidity Qualified Code(s): E66.09 - Other obesity due to excess calories; Z68.33 - Body mass index [BMI] 33.0-33.9, adult (5) Major depression, recurrent: Code(s): F33.9 - Major depressive disorder, recurrent, unspecified Qualifiers: Active/Remission status: in partial remission Qualified Code(s): F33.41 - Major depressive disorder, recurrent, in partial remission (6) Anxiety, generalized: Code(s): F41.1 - Generalized anxiety disorder (7) Forgetfulness: Code(s): R68.89 - Other general symptoms and signs Plan Patient is 27-year-old female came in today for physical exam Patient is on Seroquel 50 mg, currently doing well, patient have a history of severe depression She is still waiting for neuro appointment patient was having memory difficulty which has improved after starting the Seroquel but she would still like to see the Neurology for evaluation. Complaining of lumbar spine pain which is chronic I have ordered the x-ray as well as physical therapy Labs were done February of this year reviewed with the patient She has OBGYN Patient also have breast implants BMI is elevated patient is trying to lose weight Follow-up 3 months physical exam 1 year Orders: Orders PT Evaluation and Treatment Today M54.50 - Low back pain, unspecified XR lumbar spine 2-3V Today M54.50 - Low back pain, unspecified Medications: Changed From quetiapine 50 mg PO BEDTIME 30 days 30 tabs 0RF To quetiapine 50 mg PO BEDTIME 90 tabs 0RF 90 days Coding Level of Care Code Est Pt Prev Care 18-39y(19861) Diagnoses Lumbar pain M54.50 Encounter for general adult medical examination with abnormal findings Z00.01 Hx of syphilis Z86.19 Class 1 obesity due to excess calories with serious comorbidity and body mass index (BMI) of 33.0 to 33.9 in adult E66.09; Z68.33 Body mass index: BMI 33.0-33.9 Obesity classification: adult class 1 (BMI 30 - 34.9) Serious obesity comorbidity presence: with serious comorbidity Recurrent major depressive disorder, in partial remission F33.41 Active/Remission status: in partial remission Anxiety, generalized F41.1 Forgetfulness R68.89 Additional Codes LAURA-7 Assessment Billing - LAURA-7 Assessment Tool: LAURA-7 Assessment [id number] ([id number])
== END 2023-05-29 09:17 | disposition home or self-care (01) ==
PROVIDERS: PCP Internal Medicine; Visit Provider Internal Medicine
DX: Z00.00 Encounter for general adult medical examination without abnormal findings (principal); F33.41 Major depressive disorder, recurrent, in partial remission; M54.50 Low back pain, unspecified; Z86.19 Personal history of other infectious and parasitic diseases; E66.09 Other obesity due to excess calories; Z68.33 Body mass index [BMI] 33.0-33.9, adult; F41.1 Generalized anxiety disorder; R68.89 Other general symptoms and signs
CPT/HCPCS: 99395

== ENCOUNTER 2023-06-14 08:41 | Outpatient (AMB) | payer OTHER, SELFPAY ==
--- NOTE | 2023-06-14 09:26 | MHC.PC.OV ---
Intake Visit Reasons: [phone]/ Med review ~[phone] Allergies No Known Allergies Allergy (Verified 05/29/23 08:45) Medication List - Last Reconciled 06/14/23 by Nikhil Toney MD levonorgestrel (Mirena) intrauterine quetiapine 50 mg PO BEDTIME 90 days spironolactone 50 mg PO BID Tobacco use date assessed: 05/29/23 HPI [phone]/ Med review ~[phone] HPI Details Patient is 27-year-old female who suffers from severe depression She is currently taking Seroquel 50 mg at night which is helping her she would like to at a different medication for the morning that does not cause drowsiness She has taken Lexapro in the past and did well I have sent 10 mg tablet of Lexapro patient is to start with half a tablet for a week and then full tablet. After couple of weeks if she feels 10 mg is not enough she may double the dose patient was instructed to give me a call at that point. [facility] Medical History Acquired syphilis Anxiety and depression Back pain HSV-2 infection Intestinal malabsorption Surgical History Hx of section H/O gastric sleeve H/O abdominoplasty H/O breast implant S/P laparoscopic sleeve gastrectomy Obesity Family History Father Bipolar 1 disorder Mother HTN (hypertension) Son No problems noted. Daughter No problems noted. Brother No problems noted. Sister No problems noted. Unknown Ovarian cancer Social History Household Members: Children Both parents involved: Yes Caregiver staying overnight: No Housing: Apartment Alcohol intake: current Alcohol intake frequency: holidays/special occasions only Patient Tobacco Use Status: Never used Tobacco e-Cigarette/Vaping Use: Never Used Substance Use Type: Marijuana Special latonya needs: No Agree to transfusion: Yes service: No Current occupational status: employed Gender identity: Female Cognitive needs: No Hearing needs: No Vision needs: No Female Reproductive History Menstrual Age of Menarche: 11 Questionnaire Thrive Questionnaire Date Thrive assessed: 05/29/23 LAURA-7 AMB Questionnaire LAURA-7 Date LAURA - 7 assessed: 05/29/23 Source: Developed by Drs. Caesar Corcoran, Dina Sanchez, Reese Lugo and colleagues, with an educational felix from [employer]. Review of Systems Const Denies chills and Denies fever(s) ENT Denies epistaxis and Denies nasal discharge Card Denies chest pain Resp Denies chest congestion, Denies cough and Denies hemoptysis GI Denies diarrhea and Denies nausea Skin/Breast Denies rash Neuro Reports no additional complaints Psych Reports no additional complaints Endo Reports no additional complaints Physical exam (Primary Care) Tobacco/Smoking Status: Tobacco use Status Tobacco use date assessed 05/29/23 05/29/23 08:47 Patient Tobacco Use Status Never used Tobacco 05/29/23 08:47 e-Cigarette/Vaping Use Never Used 05/29/23 08:47 Thrive Assessment: Date of Thrive Assessment Date Thrive assessed 05/29/23 05/29/23 09:20 Telehealth Telehealth Location of provider rendering services: practice address Location of patient: address on file Patient Identification confirmed using: Name, : Yes Telehealth method: voice only Patient verbally consented to treatment: Yes Patient verbally consented to billing insurance company: Yes Patient informed of any privacy concerns related to visit: Yes Minutes spent on Phone/Video with Pt.: 12 Assessment and Plan Assessment & Plan (1) Major depression, recurrent: Code(s): F33.9 - Major depressive disorder, recurrent, unspecified Qualifiers: Active/Remission status: in partial remission Qualified Code(s): F33.41 - Major depressive disorder, recurrent, in partial remission (2) Anxiety, generalized: Code(s): F41.1 - Generalized anxiety disorder Plan Patient is 27-year-old female who suffers from severe depression She is currently taking Seroquel 50 mg at night which is helping her she would like to at a different medication for the morning that does not cause drowsiness She has taken Lexapro in the past and did well I have sent 10 mg tablet of Lexapro patient is to start with half a tablet for a week and then full tablet. After couple of weeks if she feels 10 mg is not enough she may double the dose patient was instructed to give me a call at that point. Medications: New escitalopram oxalate (Lexapro) 10 mg PO DAILY 90 tabs 0RF Coding Level of Care Code Tele Est Pt Level 3 (86705) Diagnoses Recurrent major depressive disorder, in partial remission F33.41 Active/Remission status: in partial remission Anxiety, generalized F41.1
== END 2023-06-14 11:43 | disposition home or self-care (01) ==
PROVIDERS: PCP Internal Medicine; Visit Provider Internal Medicine
DX: F33.41 Major depressive disorder, recurrent, in partial remission (principal); F41.1 Generalized anxiety disorder
CPT/HCPCS: 99213

== ENCOUNTER 2023-08-28 11:05 | Outpatient (REF) | payer OTHER, SELFPAY ==
[2023-08-28 18:30] LABS: CT PCR NOT DETECTED (Not Detect.); NG PCR NOT DETECTED (Not Detect.)
[2023-08-29 14:49] LABS: BV Int Neg Control Negative (Negative); BV Int Pos Control Positive (Positive)
== END 2023-08-28 11:06 | disposition home or self-care (01) ==
LOC: HO.LNP 11:05
PROVIDERS: Obstetrics & Gynecology; PCP Internal Medicine; Visit Provider Nurse Practitioner Family
DX: N92.0 Excessive and frequent menstruation with regular cycle (principal); N76.0 Acute vaginitis; B96.89 Other specified bacterial agents as the cause of diseases classified elsewhere; Z20.2 Contact with and (suspected) exposure to infections with a predominantly sexual mode of transmission; R41.3 Other amnesia; G43.909 Migraine, unspecified, not intractable, without status migrainosus; G47.30 Sleep apnea, unspecified
CPT/HCPCS: 0353U; 81025; 87480; 87510; 87660; 99202; 99212

== ENCOUNTER 2023-08-28 11:05 | Outpatient (AMB) | payer OTHER, SELFPAY ==
--- NOTE | 2023-08-28 11:13 | MHC.OFFVIS ---
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 Headaches x4 a week. Lots of pressure in her front and back of head. Blurry vision and stuttering words. Allergies No Known Allergies Allergy (Verified 08/28/23 13:03) HPI HPI Comments History of Present Illness Details 28 y/o female patient presents for new in-person visit for difficulty focusing and memory problem. Pt reports she was diagnosed with ADHD and depression when she was a child. She tried many medications, but can't remember what medication she tried exactly. She stopped a lot of medication in 2013 due to . Pt reports anxiety and depression manages better now and her memory and focusing has improved a little bit. She can easily lose the track of conversation, she involves conversations, but her brain not fully engaged. She forgets a lot, can't remember the conversation, not retaining new information. 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 She is in [facility], [employer], in [employer] to study radiology. Pt states that her memory has not been great always but worsened over the last 6 months. She also very irritable and [place] and has anxiety, she recently restarted quetiapine. She was quetiapine 600 mg ER, from 2009 to 2013 for possible bipolar treatment. She smoke marijuana at night to relieve her anxiety. She sees psychiatrist. Pt also reports headache, frontal pressures, left temporal, and occipital headache. Last year having headache every day with nausea and vomiting, sensitivity in light and blurred vision. Now, she does not have daily headache, less frequent headache. She uses Ibuprofen and Tylenol, once or twice a month. Pt reports she was diagnosed with KELLEY in 2020 but not treated. She lost about 80 lb since the sleep study. She still having non refreshing sleep, wakes up a lot, and daytime sleepiness. ON LICENSE OF [facility] Medical History Acquired syphilis Anxiety and depression Back pain HSV-2 infection Intestinal malabsorption Surgical History Hx of section H/O gastric sleeve H/O abdominoplasty H/O breast implant S/P laparoscopic sleeve gastrectomy Obesity Family History Father Bipolar 1 disorder Parkinsons Dementia Mother HTN (hypertension) Son No problems noted. Daughter No problems noted. Brother No problems noted. Sister No problems noted. Unknown Ovarian cancer Social History Household Members: Children Both parents involved: Yes Caregiver staying overnight: No Housing: Apartment Alcohol intake: current Alcohol intake frequency: holidays/special occasions only Patient Tobacco Use Status: Never used Tobacco e-Cigarette/Vaping Use: Never Used Substance Use Type: Marijuana Special latonya needs: No Agree to transfusion: Yes service: No Current occupational status: employed Gender identity: Female Cognitive needs: No Hearing needs: No Vision needs: No Female Reproductive History Menstrual Age of Menarche: 11 Review of Systems Const All systems reviewed & are unremarkable except as noted in HPI and below Physical Exam Vital Signs: Last Vital Signs Pulse 70 08/28/23 11:25 BP 112/70 08/28/23 11:25 Pulse Ox 99 08/28/23 11:25 Oxygen Delivery Method Room Air 08/28/23 11:25 Const General: cooperative Nutritional Appearance: obese Orientation/consciousness: patient oriented x3 Neck Neck: Yes full ROM and Yes supple Resp Effort & Inspection: normal respiratory effort and able to speak in complete sentences Neuro General: patient oriented x3, gait normal, moves all extremities and CN's II-XI intact bilaterally Cranial nerves: Yes CN's II-XII intact bilaterally Motor exam (neuro): 5/5 motor strength present throughout Psych Appearance: grossly normal Mental Status: mental status grossly normal Speech and movement: Normal speech and movement present Affect: normal affect Attitude: cooperative Orientation What is the (year) (season) (date) (day) (month)?: year, season, date, day and month Where are we (state) (county) (town or city) (hospital) (floor)?: state, county, town or city, hospital/clinic and floor Registration Name of 3 unrelated objects clearly and slowly, then ask patient to repeat all 3 of them. (1st repeat determines score. Make sure they can repeat all three): object 1, object 2 and object 3 Attention & Calculation (CHOOSE ONE) Spell WORLD backwards (DLROW): 5 letters Recall Ask patient to repeat the 3 items from question #3.: object 1, object 2 and object 3 Language Show patient a wristwatch & ask what it is. Repeat for pencil.: watch and pencil Ask the patient to repeat the phrase 'No ifs, ands, or buts' after you.: correct Ask the patient to 'take a piece of paper with their right hand' 'fold paper in half' 'place paper on floor': take paper in right hand, fold paper in half and place paper on floor Print the sentence 'CLOSE YOUR EYES' on a piece. If patient actually closes eyes then score.: followed written direction Give patient a blank piece of paper & ask to write a sentence. Score if it contains a noun & verb.: sentence contains subject and verb Ask patient to copy figure of intersecting pentagons exactly. Score if all 10 angles & 2 intersects are included.: all 10 angles present & 2 are intersected Score Score: 30 Results AMB Test Urine AMB Test Urine Negative Last Edit by Alexandra De Leon CMA on 08/28/23 13:14 Assessment & Plan Assessment & Plan (1) Memory deficit: Code(s): R41.3 - Other amnesia (2) Migraine: Code(s): G43.909 - Migraine, unspecified, not intractable, without status migrainosus (3) Sleep apnea: Code(s): G47.30 - Sleep apnea, unspecified Plan Pt was evaluated and discussed the plan of care with Dr. Flores. Pt did well on MMSE 30/30. Memory difficulty can be related to anxiety, depression, untreated ADHD and KELLEY. Advised patient to undergo home sleep study to assess sleep apnea. Will follow up of the sleep study. Advised patient to try magnesium 400 mg qHS and vitamin B 2 400 mg for migraine prevention. Orders: Orders RT home sleep study 08/28/23 R06.83 - Snoring, G47.30 - Sleep apnea, unspecified Medications: New magnesium oxide 400 mg PO DAILY 30 tabs 6RF 30 days riboflavin (vitamin B2) 400 mg PO DAILY 30 tabs 6RF 30 days Coding Level of Care Code New Pt Level 4 (26797) Diagnoses Memory deficit R41.3 Migraine G43.909 Sleep apnea G47.30
[2023-08-28 11:25] VITALS: BP 112/70; PULSE 70; O2SAT 99
== END 2023-08-28 12:05 | disposition home or self-care (01) ==
PROVIDERS: PCP Internal Medicine; Visit Provider Nurse Practitioner Family
DX: R41.3 Other amnesia (principal); G43.909 Migraine, unspecified, not intractable, without status migrainosus; G47.30 Sleep apnea, unspecified
CPT/HCPCS: 99204

== ENCOUNTER 2023-08-28 12:50 | Outpatient (AMB) | payer OTHER, SELFPAY ==
[2023-08-28 13:00] VITALS: BP 118/70; BMI 31.4
--- NOTE | 2023-08-28 13:00 | MHC.OFFVIS ---
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 In addition, the patient is complaining of vaginal discharge associated with foul odor . [facility] Medical History Acquired syphilis Anxiety and depression Back pain HSV-2 infection Intestinal malabsorption Surgical History Hx of section H/O gastric sleeve H/O abdominoplasty H/O breast implant S/P laparoscopic sleeve gastrectomy Obesity Family History Father Bipolar 1 disorder Parkinsons Dementia Mother HTN (hypertension) Son No problems noted. Daughter No problems noted. Brother No problems noted. Sister No problems noted. Unknown Ovarian cancer Social History Household Members: Children Both parents involved: Yes Caregiver staying overnight: No Housing: Apartment Alcohol intake: current Alcohol intake frequency: holidays/special occasions only Patient Tobacco Use Status: Never used Tobacco e-Cigarette/Vaping Use: Never Used Substance Use Type: Marijuana Special latonya needs: No Agree to transfusion: Yes service: No Current occupational status: employed Gender identity: Female Cognitive needs: No Hearing needs: No Vision needs: No Female Reproductive History Menstrual Age of Menarche: 11 control method: progestin IUCD Total pregnancies: 5 Full term: 3 Number of Living Children: 3 Ab induced: 2 Review of Systems Const All systems reviewed & are unremarkable except as noted in HPI and below Physical Exam Vital Signs: Last Vital Signs BP 118/70 08/28/23 13:00 BMI result Body Mass Index 31.4 General: Yes no CVA tenderness External Female Exam: normal external appearance and normal appearance of the urethra Speculum Exam - Vagina: normal appearance of the vagina, normal palpation, no lesions and no masses Speculum Exam - Cervix: normal appearance of the cervix, normal palpation, no lesions, no masses, nontender and Other cervical findings present (IUD string in place) Bimanual exam- vagina & uterus: normal bimanual exam, normal palpation, uterine size normal, normal palpation, uterine shape normal, No Cervical tenderness present and non-tender Bimanual Exam- Adnexa, other: normal adnexae Back/Spine/Pelvis Back: no CVA tenderness Results AMB Test Urine AMB Test Urine Negative Last Edit by Alexandra De Leon CMA on 08/28/23 13:14 Assessment & Plan Assessment & Plan (1) Spotting: Comment: With Mirena IUD Code(s): N92.0 - Excessive and frequent menstruation with regular cycle Plan: Urine test done in the office was negative. Will order pelvic ultrasound. Instructions given the patient to schedule a 2 week follow-up appointment (2) Bacterial vaginosis: Code(s): N76.0 - Acute vaginitis; B96.89 - Other specified bacterial agents as the cause of diseases classified elsewhere Plan: GC and chlamydia cultures with BV panel taken. Will treat with Flagyl 500 mg p.o. b.i.d. x 7 days, Instructions given to the patient to refrain from sexual activity or to use condoms consistently and correctly during the BV treatment regimen, not to douch, it might increase the risk for relapse, and to call if symptoms persist or recur. Orders: Orders CT NG by PCR Today Z20.2 - Contact with and (suspected) exposure to infections with a predominantly sexual mode of transmission AMB HCG Urine Test Today Z32.02 - Encounter for test, result negative Bacterial Vaginosis Panel Today Z20.2 - Contact with and (suspected) exposure to infections with a predominantly sexual mode of transmission US pelvic and transvaginal Today N93.9 - Abnormal uterine and vaginal bleeding, unspecified Medications: New metronidazole 500 mg PO BID 14 tabs 0RF 7 days Coding Level of Care Code Est Pt Level 3 (83112) Diagnoses Spotting N92.0 Bacterial vaginosis N76.0; B96.89
== END 2023-08-28 13:26 | disposition home or self-care (01) ==
LOC: HO.HWS 12:50
PROVIDERS: PCP Internal Medicine; Visit Provider Obstetrics & Gynecology
DX: N92.0 Excessive and frequent menstruation with regular cycle (principal); N76.0 Acute vaginitis; B96.89 Other specified bacterial agents as the cause of diseases classified elsewhere; Z32.02 Encounter for pregnancy test, result negative
CPT/HCPCS: 99213

== ENCOUNTER 2023-09-11 16:30 | Outpatient (REF) | payer OTHER, SELFPAY ==
--- NOTE | ~2023-09-11 | US_ITS ---
EXAM: Pelvic Ultrasound CLINICAL INDICATION: Abnormal bleeding COMPARISON: Pelvic OB ultrasound 11/14/2022 TECHNIQUE: The pelvis was evaluated using transabdominal and transvaginal imaging. FINDINGS: The uterus measures 8.0 x 3.3 x 4.8 cm in longitudinal by AP by transverse dimension. The endometrial stripe is not thickened and measures 0.2 cm. IUD noted within the uterus. The left ovary measures approximately 2.4 x 1.4 x 1.6 cm and is unremarkable. The right ovary is not clearly visualized. There are no abnormal adnexal masses. There is no free fluid in the pelvis. US/US pelvic and transvaginal IMPRESSION: 1. Unremarkable sonographic imaging of the uterus and left ovary. 2. The right ovary is not clearly visualized.
== END 2023-09-11 16:31 | disposition home or self-care (01) ==
LOC: HO.US 16:30
PROVIDERS: PCP Internal Medicine; Visit Provider Obstetrics & Gynecology
DX: N93.9 Abnormal uterine and vaginal bleeding, unspecified (principal)
CPT/HCPCS: 76830; 76856

== ENCOUNTER → 2023-10-16 08:55 | Outpatient (REF) | payer OTHER, SELFPAY | LOC: HO.SL 08:55 | PROVIDERS: PCP Internal Medicine; Visit Provider Nurse Practitioner Family | DX: R06.83 Snoring (principal) | CPT/HCPCS: 95806 ==

== ENCOUNTER → 2023-10-16 09:06 | Outpatient (BNV) | payer OTHER, SELFPAY | PROVIDERS: PCP Internal Medicine; Visit Provider Psychiatry & Neurology Neurology | DX: R06.83 Snoring (principal); R40.0 Somnolence | CPT/HCPCS: 95806 ==

== ENCOUNTER 2023-11-06 09:28 | Outpatient (REF) | payer OTHER, SELFPAY ==
--- NOTE | ~2023-11-06 | XR_ITS ---
EXAMINATION: XR LUMBOSACRAL SPINE CLINICAL INFORMATION: Low back pain, unspecified COMPARISON: None available. TECHNIQUE: Three views of the lumbosacral spine. FINDINGS: There is slight straightening of the usual lumbar lordosis which can be seen with muscle spasm. The vertebral bodies and posterior elements are normal. The disc spaces are preserved. No spondylolisthesis. Surgical clips and anastomotic sutures are seen in the left upper quadrant. A T-shaped IUD is seen in the center the pelvis. XR/XR lumbar spine 2-3V IMPRESSION: Muscle spasm
== END 2023-11-06 09:29 | disposition home or self-care (01) ==
LOC: HO.HMGCX 09:28
PROVIDERS: PCP Internal Medicine; Visit Provider Internal Medicine
DX: M62.830 Muscle spasm of back (principal)
CPT/HCPCS: 72100

== ENCOUNTER 2023-11-06 09:43 | Outpatient (AMB) | payer OTHER, SELFPAY ==
[2023-11-06 09:45] VITALS: BP 120/80; PULSE 76; O2SAT 99; BMI 31.9
--- NOTE | 2023-11-06 09:45 | A.OFFPC_ITS ---
Vital Signs 3 11/06/23 09:45 Height 5 ft 3 in Weight 180 lb 6 oz BMI 31.9 BP 120/80 Blood Pressure Location Lt brachial Position Sitting Pulse 76 Pulse Oximetry (%) 99 Oxygen Delivery Method Room Air Intake Visit Reasons: 3 Month F/U Allergies No Known Allergies Allergy (Verified 11/06/23 09:46) Medication List - Last Reconciled 11/06/23 by Nikhil Toney MD escitalopram oxalate (Lexapro) 10 mg PO DAILY levonorgestrel (Mirena) intrauterine magnesium oxide 400 mg PO DAILY 30 days quetiapine ER 50 mg PO BEDTIME riboflavin (vitamin B2) 400 mg PO DAILY 30 days spironolactone 50 mg PO BID Tobacco use date assessed: 11/06/23 Dental Screening Dental Screen Date: 11/06/23 Did you have a dental visit in the last 12 months?: Yes Did you have a dental problem in the last 6 months where you did not have access to dental care?: No Was dental information given to patient?: Patient has dentist HPI 3 Month F/U 2 HPI0 Details Patient is 28-year-old female now seeing a psychiatrist Dr. Pimentel, and is taking medication through them She is currently on Seroquel 50 mg Wellbutrin was started and Lexapro was cut down into half She has also seen neurologist and there was a questionable ADD diagnosis which she is to discuss with her psychiatrist She is taking spironolactone through [facility] for acne Patient continued to have mid back pain She has a history of 3 epidural injections due to 3 pregnancies I have sent muscle relaxer which might help her as pain is off and on Patient also have breast implants and she is thinking to have them removed hoping that it will improve her back pain. She is taking no medication from this office Since she is taking number of other medications from providers I have ordered labs to monitor CBC and metabolic profile She has appointment in May for physical examination [facility] Medical History Anxiety, generalized Acquired syphilis Anxiety and depression Back pain HSV-2 infection Intestinal malabsorption Surgical History Hx of section H/O gastric sleeve H/O abdominoplasty H/O breast implant S/P laparoscopic sleeve gastrectomy Obesity Family History Father Bipolar 1 disorder Parkinsons Dementia Mother HTN (hypertension) Son No problems noted. Daughter No problems noted. Brother No problems noted. Sister No problems noted. Unknown Ovarian cancer Social History Household Members: Children Both parents involved: Yes Caregiver staying overnight: No Housing: Apartment Alcohol intake: current Alcohol intake frequency: holidays/special occasions only Patient Tobacco Use Status: Never used Tobacco e-Cigarette/Vaping Use: Never Used Substance Use Type: Marijuana Special latonya needs: No Agree to transfusion: Yes service: No Current occupational status: employed Gender identity: Female Cognitive needs: No Hearing needs: No Vision needs: No Female Reproductive History Menstrual Age of Menarche: 11 Questionnaire Thrive Questionnaire Date Thrive assessed: 05/29/23 LAURA-7 AMB Questionnaire LAURA-7 Date LAURA - 7 assessed: 05/29/23 Source: Developed by Drs. Caesar Corcoran, Dina Sanchez, Reese Lugo and colleagues, with an educational felix from [employer]. Review of Systems Const Denies chills and Denies fever(s) ENT Denies epistaxis and Denies nasal discharge Card Denies chest pain Resp Denies chest congestion, Denies cough and Denies hemoptysis GI Denies diarrhea and Denies nausea Skin/Breast Denies rash Neuro Reports no additional complaints Psych Reports no additional complaints Endo Reports no additional complaints Physical exam (Primary Care) Vital Signs: Last Vital Signs Pulse 76 11/06/23 09:45 BP 120/80 11/06/23 09:45 Pulse Ox 99 11/06/23 09:45 Oxygen Delivery Method Room Air 11/06/23 09:45 BMI result Body Mass Index 31.9 Tobacco/Smoking Status: Tobacco use Status Tobacco use date assessed 11/06/23 11/06/23 09:47 Patient Tobacco Use Status Never used Tobacco 11/06/23 09:47 e-Cigarette/Vaping Use Never Used 11/06/23 09:47 Thrive Assessment: Date of Thrive Assessment Date Thrive assessed 05/29/23 11/06/23 09:47 Const General: cooperative, comfortable and no acute distress Orientation/consciousness: patient oriented x3 HENMT Head: Yes normocephalic Eyes General: appearance normal, both eyes and all related structures Neck Neck: Yes supple Resp Effort & Inspection: normal respiratory effort, no cough and no stridor Cardio Rhythm: regular rhythm Heart sounds: S1 normal heart sound present and S2 normal heart sound present Back/Spine/Pelvis Back/spine/pelvis image: 2 1. Site of pain Skin General skin exam: turgor normal Neuro General: patient oriented x3, tone normal and moves all extremities Extrem Right lower extremity: no edema Left lower extremity: no edema Assessment and Plan Assessment & Plan (1) Major depression, recurrent: Code(s): F33.9 - Major depressive disorder, recurrent, unspecified Qualifiers: Active/Remission status: in partial remission Qualified Code(s): F33.41 - Major depressive disorder, recurrent, in partial remission (2) Anxiety, generalized: Code(s): F41.1 - Generalized anxiety disorder (3) Difficulty sleeping: Code(s): G47.9 - Sleep disorder, unspecified (4) Back pain, chronic: Code(s): M54.9 - Dorsalgia, unspecified; G89.29 - Other chronic pain Qualifiers: Back pain location: thoracic back pain Back pain laterality: midline Q ualified Code(s): M54.6 - Pain in thoracic spine; G89.29 - Other chronic pain Plan Patient is 28-year-old female now seeing a psychiatrist Dr. Pimentel, and is taking medication through them She is currently on Seroquel 50 mg Wellbutrin was started and Lexapro was cut down into half She has also seen neurologist and there was a questionable ADD diagnosis which she is to discuss with her psychiatrist She is taking spironolactone through [facility] for acne Patient continued to have mid back pain She has a history of 3 epidural injections due to 3 pregnancies I have sent muscle relaxer which might help her as pain is off and on Patient also have breast implants and she is thinking to have them removed hoping that it will improve her back pain. She is taking no medication from this office Since she is taking number of other medications from providers I have ordered labs to monitor CBC and metabolic profile She has appointment in May for physical examination Orders: Orders 2 Complete Blood Count Auto Diff Today F33.41 - Major depressive disorder, recurrent, in partial remission, F41.1 - Generalized anxiety disorder, G47.9 - Sleep disorder, unspecified Comprehensive Met. Panel Today F33.41 - Major depressive disorder, recurrent, in partial remission, F41.1 - Generalized anxiety disorder, G47.9 - Sleep disorder, unspecified Medications: New 2 cyclobenzaprine 5 mg PO BEDTIME 30 tabs 0RF 30 days M54.9 - Dorsalgia, unspecified Coding Level of Care Code Est Pt Level 3 (95091) Diagnoses Recurrent major depressive disorder, in partial remission F33.41 Active/Remission status: in partial remission Anxiety, generalized F41.1 Difficulty sleeping G47.9 Chronic midline thoracic back pain M54.6; G89.29 Back pain location: thoracic back pain Back pain laterality: midline
== END 2023-11-06 11:26 | disposition home or self-care (01) ==
PROVIDERS: PCP Internal Medicine; Visit Provider Internal Medicine
DX: G47.9 Sleep disorder, unspecified (principal); F33.41 Major depressive disorder, recurrent, in partial remission; F41.1 Generalized anxiety disorder; M54.6 Pain in thoracic spine; G89.29 Other chronic pain
CPT/HCPCS: 99213

== ENCOUNTER 2023-11-22 14:56 | Outpatient (AMB) | payer OTHER, SELFPAY ==
--- NOTE | 2023-11-22 14:57 | MHC.OFFVIS ---
Intake Visit Reasons: U/S results Allergies No Known Allergies Allergy (Verified 11/06/23 09:46) HPI Comments Details: The patient schedule a tele health visit for follow-up after pelvic ultrasound regarding some vaginal spotting on Mirena IUD. GC/CT were negative, urine during last visit was negative PFSH Medical History Anxiety, generalized Acquired syphilis Anxiety and depression Back pain HSV-2 infection Intestinal malabsorption Surgical History Hx of section H/O gastric sleeve H/O abdominoplasty H/O breast implant S/P laparoscopic sleeve gastrectomy Obesity Family History Father Bipolar 1 disorder Parkinsons Dementia Mother HTN (hypertension) Son No problems noted. Daughter No problems noted. Brother No problems noted. Sister No problems noted. Unknown Ovarian cancer Social History Household Members: Children Both parents involved: Yes Caregiver staying overnight: No Housing: Apartment Alcohol intake: current Alcohol intake frequency: holidays/special occasions only Patient Tobacco Use Status: Never used Tobacco e-Cigarette/Vaping Use: Never Used Substance Use Type: Marijuana Special latonya needs: No Agree to transfusion: Yes service: No Current occupational status: employed Gender identity: Female Cognitive needs: No Hearing needs: No Vision needs: No Female Reproductive History Menstrual Age of Menarche: 11 Review of Systems Const All systems reviewed & are unremarkable except as noted in HPI and below Reports as per HPI and Reports no additional complaints GI Reports no additional complaints Reports no additional complaints Telehealth Telehealth Telehealth Platform: Telephone Location of provider rendering services: practice address Location of patient: address on file Patient Identification confirmed using: Name, : Yes Telehealth method: video Patient verbally consented to treatment: Yes Patient verbally consented to billing insurance company: Yes Patient informed of any privacy concerns related to visit: Yes Assessment & Plan Assessment & Plan (1) Spotting: Comment: With Mirena IUD Code(s): N92.0 - Excessive and frequent menstruation with regular cycle Category: Medical Plan: Discussed with the patient the results the ultrasound unremarkable with IUD in appropriate position, the patient was reassured. Instructions given the patient to call if spotting persists. All questions answered, the patient verbalized understanding. I spent a total of 20 minutes reviewing the chart, talking to the patient via video and documenting in the medical record. Coding Level of Care Code Tele Est Pt Level 1 (09023) Diagnoses Spotting N92.0
== END 2023-11-22 16:00 | disposition home or self-care (01) ==
LOC: HO.HWS 14:56
PROVIDERS: PCP Internal Medicine; Visit Provider Obstetrics & Gynecology
DX: N92.0 Excessive and frequent menstruation with regular cycle (principal)
CPT/HCPCS: 99211

== ENCOUNTER → 2023-11-22 14:56 | Outpatient (BNVA) | payer OTHER, SELFPAY | PROVIDERS: PCP Internal Medicine; Visit Provider Obstetrics & Gynecology ==

== ENCOUNTER 2023-11-23 13:51 | Outpatient (AMB) | payer OTHER, SELFPAY ==
--- NOTE | 2023-11-23 13:50 | MHC.PC.OV ---
Intake Visit Reasons: Discuss Results~ [phone] Allergies No Known Allergies Allergy (Verified 11/23/23 13:50) Medication List - Last Reconciled 11/23/23 by Nikhil Toney MD cyclobenzaprine 5 mg PO BEDTIME 30 days escitalopram oxalate (Lexapro) 10 mg PO DAILY levonorgestrel (Mirena) intrauterine magnesium oxide 400 mg PO DAILY 30 days riboflavin (vitamin B2) 400 mg PO DAILY 30 days spironolactone 50 mg PO BID Tobacco use date assessed: 11/23/23 Dental Screening Dental Screen Date: 11/23/23 Did you have a dental visit in the last 12 months?: Yes Did you have a dental problem in the last 6 months where you did not have access to dental care?: No Was dental information given to patient?: Patient has dentist HPI Discuss Results~ [phone] HPI Details Patient is 28-year-old female who continued to have lower back pain Patient has a history of 3 epidural injections in that area We did the x-ray which showed There is slight straightening of the usual lumbar lordosis which can be seen with muscle spasm. The vertebral bodies and posterior elements are normal. The disc spaces are preserved. No spondylolisthesis. Surgical clips and anastomotic sutures are seen in the left upper quadrant. A T-shaped IUD is seen in the center the pelvis. Muscle spasm I sent cyclobenzaprine 5 mg when I ordered the x-ray however patient never got the prescription I have sent 10 mg this time X-ray report explained to patient Initially I want her to start taking 1 tablet or half a tablet at night until her pain is better Then take it as needed. [facility] Medical History Anxiety, generalized Acquired syphilis Anxiety and depression Back pain HSV-2 infection Intestinal malabsorption Surgical History Hx of section H/O gastric sleeve H/O abdominoplasty H/O breast implant S/P laparoscopic sleeve gastrectomy Obesity Family History Father Bipolar 1 disorder Parkinsons Dementia Mother HTN (hypertension) Son No problems noted. Daughter No problems noted. Brother No problems noted. Sister No problems noted. Unknown Ovarian cancer Social History Household Members: Children Both parents involved: Yes Caregiver staying overnight: No Housing: Apartment Alcohol intake: current Alcohol intake frequency: holidays/special occasions only Patient Tobacco Use Status: Never used Tobacco e-Cigarette/Vaping Use: Never Used Substance Use Type: Marijuana Special latonya needs: No Agree to transfusion: Yes service: No Current occupational status: employed Gender identity: Female Cognitive needs: No Hearing needs: No Vision needs: No Female Reproductive History Menstrual Age of Menarche: 11 Questionnaire Thrive Questionnaire Date Thrive assessed: 05/29/23 AUDIT C Alcohol Use Questionnaire (AUDIT-C) 1. How often do you have a drink containing alcohol?: Never 3. How often do you have six or more drinks on one occasion?: Never Total Score: 0 Score Reviewed/Action Taken: Yes LAURA-7 AMB Questionnaire LAURA-7 Date LAURA - 7 assessed: 05/29/23 Source: Developed by Drs. Caesar Corcoran, Dina Sanchez, Reese Lugo and colleagues, with an educational felix from [employer] (formerly [employer]). Review of Systems Const Denies chills and Denies fever(s) ENT Denies epistaxis and Denies nasal discharge Card Denies chest pain Resp Denies chest congestion, Denies cough and Denies hemoptysis GI Denies diarrhea and Denies nausea Skin/Breast Denies rash Neuro Reports no additional complaints Psych Reports no additional complaints Endo Reports no additional complaints Physical exam (Primary Care) Tobacco/Smoking Status: Tobacco use Status Tobacco use date assessed 11/23/23 11/23/23 13:51 Patient Tobacco Use Status Never used Tobacco 11/23/23 13:51 e-Cigarette/Vaping Use Never Used 11/23/23 13:51 Thrive Assessment: Date of Thrive Assessment Date Thrive assessed 05/29/23 11/23/23 13:51 Telehealth Telehealth Telehealth Platform: [facility] Location of provider rendering services: practice address Location of patient: address on file Patient Identification confirmed using: Name, : Yes Telehealth method: voice only Patient verbally consented to treatment: Yes Patient verbally consented to billing insurance company: Yes Patient informed of any privacy concerns related to visit: Yes Minutes spent on Phone/Video with Pt.: 13 Assessment and Plan Assessment & Plan (1) Lumbar pain: Code(s): M54.50 - Low back pain, unspecified (2) Lumbar paraspinal muscle spasm: Code(s): M62.830 - Muscle spasm of back Plan Patient is 28-year-old female who continued to have lower back pain Patient has a history of 3 epidural injections in that area We did the x-ray which showed There is slight straightening of the usual lumbar lordosis which can be seen with muscle spasm. The vertebral bodies and posterior elements are normal. The disc spaces are preserved. No spondylolisthesis. Surgical clips and anastomotic sutures are seen in the left upper quadrant. A T-shaped IUD is seen in the center the pelvis. Muscle spasm I sent cyclobenzaprine 5 mg when I ordered the x-ray however patient never got the prescription I have sent 10 mg this time X-ray report explained to patient Initially I want her to start taking 1 tablet or half a tablet at night until her pain is better Then take it as needed. Medications: Changed From cyclobenzaprine 5 mg PO BEDTIME 30 days 30 tabs 0RF M54.9 - Dorsalgia, unspecified To cyclobenzaprine 10 mg PO BEDTIME 30 days 30 tabs 0RF M54.9 - Dorsalgia, unspecified Discontinued quetiapine ER Discontinued Reason: Doctor's Order 50 mg PO BEDTIME 90 tabs 0RF Coding Level of Care Code Tele Est Pt Level 3 (62275) Diagnoses Lumbar pain M54.50 Lumbar paraspinal muscle spasm M62.830
== END 2023-11-23 16:00 | disposition home or self-care (01) ==
LOC: HO.HMGC 13:51
PROVIDERS: PCP Internal Medicine; Visit Provider Internal Medicine
DX: M54.50 Low back pain, unspecified (principal); M62.830 Muscle spasm of back
CPT/HCPCS: 99213

== ENCOUNTER → 2024-03-18 10:41 | Outpatient (BNVA) | payer OTHER, SELFPAY | PROVIDERS: PCP Internal Medicine; Visit Provider Registered Nurse | DX: Z13.89 Encounter for screening for other disorder (principal) | CPT/HCPCS: 99202 ==

== ENCOUNTER 2024-04-08 12:19 | Outpatient (AMB) | payer OTHER, SELFPAY ==
--- NOTE | 2024-04-08 12:42 | MHC.OFFVIS ---
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 The patient is complaining of vaginal discharge associated with foul odor no vulvovaginal irritation/itching [facility] Medical History Anxiety, generalized Acquired syphilis Anxiety and depression Back pain HSV-2 infection Intestinal malabsorption Surgical History Hx of section H/O gastric sleeve H/O abdominoplasty H/O breast implant S/P laparoscopic sleeve gastrectomy Obesity Family History Father Bipolar 1 disorder Parkinsons Dementia Mother HTN (hypertension) Son No problems noted. Daughter No problems noted. Brother No problems noted. Sister No problems noted. Unknown Ovarian cancer Social History Household Members: Children Both parents involved: Yes Caregiver staying overnight: No Housing: Apartment Alcohol intake: current Alcohol intake frequency: holidays/special occasions only Patient Tobacco Use Status: Never used Tobacco e-Cigarette/Vaping Use: Never Used Substance Use Type: Marijuana Special latonya needs: No Agree to transfusion: Yes service: No Current occupational status: employed Gender identity: Female Cognitive needs: No Hearing needs: No Vision needs: No Female Reproductive History Menstrual Age of Menarche: 11 Review of Systems Const All systems reviewed & are unremarkable except as noted in HPI and below Physical Exam Vital Signs: BMI result Body Mass Index 31.6 General: Yes no CVA tenderness External Female Exam: normal external appearance and normal appearance of the urethra Speculum Exam - Vagina: normal appearance of the vagina, normal palpation, no lesions and no masses Speculum Exam - Cervix: normal appearance of the cervix, normal palpation, no lesions, no masses, nontender and Other cervical findings present (IUD string in place) Bimanual exam- vagina & uterus: normal bimanual exam, normal palpation, uterine size normal, normal palpation, uterine shape normal, No Cervical tenderness present and non-tender Bimanual Exam- Adnexa, other: normal adnexae Back/Spine/Pelvis Back: no CVA tenderness Office Procedures IUD Insert/Removal Details Details: Counseling/Consent: After discussing with the patient the risks of the procedure including bleeding, infection, scar tissue formation, , possible injury to blood vessels or nerves, chronic arm pain, blood transfusion, and irregular unpredictable bleeding Alternative options were discussed with the patient including but not limited: Do nothing. The patient signed the consent and agreed with the plan; all questions answered. Urine test was done in the office and was negative Preop dx: Requesting IUD removal Op: IUD removal Post op dx: same EBL= 10 cc Procedure: The patient was put in the dorsal lithotomy position a speculum was inserted in the vagina the IUD thread identified. Using a Hayley clamp the thread was grasped and the IUD pulled out with no complications. The patient tolerated the procedure well and was advised to use a different method for contraception. Discharge instructions: Instructions were given to the pt to call if temp>100.4, abdominal pain heavy vaginal bleeding, n/v occur. The patient verbalized understanding and all questions answered. This note was generated with a voice recognition program. Some errors may have been overlooked during the review of this note. Sometimes these errors may affect the content or meaning of a given sentence. [id number] Removal Procedure code (CPT) selection complete Results AMB Test Urine AMB Test Urine Negative Last Edit by Alexandra De Leon CMA on 04/08/24 12:43 Results Reviewed Results Reviewed: Laboratory Last Values Tst Clinic Negative 04/08/24 12:42 Assessment & Plan Assessment & Plan (1) Encounter for IUD removal: Code(s): Z30.432 - Encounter for removal of intrauterine contraceptive device Category: Medical Plan: Mirena IUD removed, see procedure note (2) Family planning: Code(s): Z30.09 - Encounter for other general counseling and advice on contraception Category: Social Hx Plan: Discussed with the patient different options of control including control pills, patch, NuvaRing, Nexplanon, Depo-Provera, ParaGard IUD . All pros and cons, risks and benefits were discussed with the patient, the patient decided to hold off for a months, and see her PCP regarding headache and then come back within a month to discuss further family planning options. Instructions given the patient to use a backup method for control to prevent (3) Bacterial vaginosis: Code(s): N76.0 - Acute vaginitis; B96.89 - Other specified bacterial agents as the cause of diseases classified elsewhere Category: Medical Plan: GC and chlamydia cultures with BV panel taken. Per CDC recommendation, will screen for STI, HepBs Ag, HIV, RPR, Hep C Ab ordered. Will treat with Flagyl 500 mg p.o. b.i.d. x 7 days, Instructions given to the patient to refrain from sexual activity or to use condoms consistently and correctly during the BV treatment regimen, not to douch, it might increase the risk for relapse, and to call if symptoms persist or recur. Orders: Orders Hepatitis B Surface Antigen Today B96.89 - Other specified bacterial agents as the cause of diseases classified elsewhere, N76.0 - Acute vaginitis Syphilis Screen Today B96.89 - Other specified bacterial agents as the cause of diseases classified elsewhere, N76.0 - Acute vaginitis AMB HCG Urine Test Today Z32.02 - Encounter for test, result negative HIV Ab/Ag Today B96.89 - Other specified bacterial agents as the cause of diseases classified elsewhere, N76.0 - Acute vaginitis Hepatitis C Antibody Today B96.89 - Other specified bacterial agents as the cause of diseases classified elsewhere, N76.0 - Acute vaginitis Medications: New metronidazole 500 mg PO BID 7 days 14 tabs 0RF Coding Level of Care Code Est Pt Level 3 (02905) Diagnoses Encounter for IUD removal Z30.432 Family planning Z30.09 Bacterial vaginosis N76.0; B96.89 CPT Codes Details - CPT: 35797-TDY Removal ([id number])
[2024-04-08 12:43] VITALS: BMI 31.6
== END 2024-04-08 12:56 | disposition home or self-care (01) ==
LOC: HO.HWS 12:19
PROVIDERS: PCP Internal Medicine; Visit Provider Obstetrics & Gynecology
DX: N76.0 Acute vaginitis (principal); B96.89 Other specified bacterial agents as the cause of diseases classified elsewhere; Z30.09 Encounter for other general counseling and advice on contraception; Z30.432 Encounter for removal of intrauterine contraceptive device; Z32.02 Encounter for pregnancy test, result negative
CPT/HCPCS: 58301; 99213

== ENCOUNTER 2024-04-08 12:19 | Outpatient (REF) | payer OTHER, SELFPAY ==
[2024-04-09 11:25] LABS: Bacterial Vaginosis PCR POSITIVE (Negative); Candida Group PCR DETECTED (Not Detect); Candida glab krusei PCR NOT DETECTED (Not Detect); Trichomonas vaginalis PCR NOT DETECTED (Not Detect)
[2024-04-09 11:28] LABS: CT PCR NOT DETECTED (Not Detect.); NG PCR NOT DETECTED (Not Detect.)
== END 2024-04-08 12:20 | disposition home or self-care (01) ==
LOC: HO.LNP 12:19
PROVIDERS: PCP Internal Medicine; Visit Provider Obstetrics & Gynecology
DX: N76.0 Acute vaginitis (principal); B96.89 Other specified bacterial agents as the cause of diseases classified elsewhere; Z30.432 Encounter for removal of intrauterine contraceptive device
CPT/HCPCS: 0352U; 58301; 81025; 87491; 87591; 99212

== ENCOUNTER 2024-04-15 08:41 | Outpatient (AMB) | payer OTHER, SELFPAY ==
[2024-04-15 08:42] VITALS: BP 120/70; PULSE 90; O2SAT 100; BMI 33.1
--- NOTE | 2024-04-15 08:42 | A.OFFPC_ITS ---
Vital Signs 04/15/24 08:42 Height 5 ft 3 in Weight 187 lb BMI 33.1 BP 120/70 Blood Pressure Location Rt brachial Position Sitting Pulse 90 Pulse Source Pulse Oximeter Pulse Oximetry (%) 100 Oxygen Delivery Method Room Air Intake Visit Reasons: Palpitations , Headache Allergies No Known Allergies Allergy (Verified 04/15/24 08:42) Medication List - Last Reconciled 04/15/24 by Nikhil Toney MD cyclobenzaprine 10 mg PO BEDTIME 30 days escitalopram oxalate (Lexapro) 10 mg PO DAILY levonorgestrel (Mirena) intrauterine levonorgestrel (Plan B One-Step) 1.5 mg PO ONCE 1 day magnesium oxide 400 mg PO DAILY 30 days metronidazole 500 mg PO BID 7 days riboflavin (vitamin B2) 400 mg PO DAILY 30 days scopolamine base (Transderm-Scop) 1 patch transdermal Q3D PRN spironolactone 50 mg PO BID terconazole 0.8% 1 appful vaginal BEDTIME 3 days Tobacco use date assessed: 11/23/23 Dental Screening Dental Screen Date: 11/23/23 HPI Palpitations , Headache HPI Details Patient is 28-year-old female came in today to talk about few medical problems She continued to have palpitations off and on which is causing anxiety inpatient She was evaluated by Dr. Pascual cardiology in 2019, and also had Holter monitor which did show some benign arrhythmias Patient would like to be re-evaluated, referral placed She is also having headaches, which feels like a pressure sensation in the back of the head and left side of the head She has had them for a while, but since recently when her control was changed they have intensified Associated with slight blurring of vision So respond slightly to ibuprofen I am starting her on amitriptyline 25 mg to be taken every night I have also sent sumatriptan and ibuprofen to be taken at onset of headache once a day We will set up telemedicine visit in 3 weeks to see how she is doing BMI is elevated patient is trying to lose weight PFSH Medical History Anxiety, generalized Acquired syphilis Anxiety and depression Back pain HSV-2 infection Intestinal malabsorption Surgical History Hx of section H/O gastric sleeve H/O abdominoplasty H/O breast implant S/P laparoscopic sleeve gastrectomy Obesity Family History Father Bipolar 1 disorder Parkinsons Dementia Mother HTN (hypertension) Son No problems noted. Daughter No problems noted. Brother No problems noted. Sister No problems noted. Unknown Ovarian cancer Social History Household Members: Children Both parents involved: Yes Caregiver staying overnight: No Housing: Apartment Alcohol intake: current Alcohol intake frequency: holidays/special occasions only Patient Tobacco Use Status: Never used Tobacco e-Cigarette/Vaping Use: Never Used Substance Use Type: Marijuana Special latonya needs: No Agree to transfusion: Yes service: No Current occupational status: employed Gender identity: Female Cognitive needs: No Hearing needs: No Vision needs: No Female Reproductive History Menstrual Age of Menarche: 11 Questionnaire PHQ-9 Over the last 2 weeks, how often have you been bothered by any of the following problems? 1. Little interest or pleasure in doing things: not at all 2. Feeling down, depressed, or hopeless: not at all 3. Trouble falling or staying asleep, or sleeping too much: not at all 4. Feeling tired or having little energy: not at all 5. Poor appetite or overeating: not at all 6. Feeling bad about yourself - or that you are a failure or have let yourself or your family down: not at all 7. Trouble concentrating on things, such as reading the newspaper or watching television: not at all 8. Moving or speaking so slowly that other people could have noticed. Or the opposite - being so fidgety or restless that you have been moving around a lot more than usual: not at all 9. Thoughts that you would be better off or of hurting yourself in some way: not at all Total score: 0 Depression Screening Interpretation: Negative Depression Screening Done: Yes 07615 - PHQ-9 Billing: Yes Source: Developed by Drs. Caesar Corcoran, Dina Sanchez, Reese Lugo and colleagues, with an educational felix from [employer]. Thrive Questionnaire Date Thrive assessed: 04/15/24 I am a: Patient What is your living situation today?: I have a steady place to live Within the past 12 months, did the food you bought not last and you didn't have the money to get more?: Never true Within the past 12 months, did you worry whether your food would run out before you got money to buy more?: Never true Do you have trouble paying for medicines?: No Do you have trouble getting transportation to medical appointments?: No Do you have trouble paying your heating and electricity bill?: No Do you have trouble taking care of your child, family member or friend?: No Do you have trouble with day-to-day activities such as bathing, preparing meals, shopping, managing finances, etc.?: No Are you currently unemployed and looking for a job?: No Are you interested in more education?: No Please select the resources that you would like help with: None THRIVE Score: 0 AUDIT C Alcohol Use Questionnaire (AUDIT-C) 1. How often do you have a drink containing alcohol?: Never 3. How often do you have six or more drinks on one occasion?: Never Total Score: 0 Score Reviewed/Action Taken: Yes LAURA-7 AMB Questionnaire LAURA-7 Date LAURA - 7 assessed: 04/15/24 Feeling nervous, anxious, or on edge: 0 = Not at all Not being able to stop or control worryin = Not at all Worrying too much about different things: 1 = Several days Trouble relaxin = Several days Being so restless that it is hard to sit still: 0 = Not at all Becoming easily annoyed or irritable: 0 = Not at all Feeling afraid as if something awful might happen: 0 = Not at all Total LAURA-7 score (0-4 normal; 5-9 mild; 10-14 moderate; 15-21 severe): 2 Source: Developed by Drs. Caesar Corcoran, Dina Sanchez, Reese Lugo and colleagues, with an educational felix from [employer]. LAURA-7 Assessment Billing LAURA-7 Assessment Tool: LAURA-7 Assessment 87399 Review of Systems Const Denies chills and Denies fever(s) ENT Denies epistaxis and Denies nasal discharge Card Denies chest pain Resp Denies chest congestion, Denies cough and Denies hemoptysis GI Denies diarrhea and Denies nausea Skin/Breast Denies rash Neuro Reports no additional complaints Psych Reports no additional complaints Endo Reports no additional complaints Physical exam (Primary Care) Vital Signs: Last Vital Signs Pulse 90 04/15/24 08:42 BP 120/70 04/15/24 08:42 Pulse Ox 100 04/15/24 08:42 Oxygen Delivery Method Room Air 04/15/24 08:42 BMI result Body Mass Index 33.1 Tobacco/Smoking Status: Tobacco use Status Tobacco use date assessed 11/23/23 04/15/24 08:46 Patient Tobacco Use Status Never used Tobacco 04/15/24 08:46 e-Cigarette/Vaping Use Never Used 04/15/24 08:46 PHQ-9: PHQ-9 Score PHQ-9: Total score 0 04/15/24 09:05 Depression Screening Interpretation: Negative Thrive Assessment: Date of Thrive Assessment Date Thrive assessed 04/15/24 04/15/24 08:49 Const General: cooperative, comfortable and no acute distress Orientation/consciousness: patient oriented x3 HENMT Head: Yes normocephalic Eyes General: appearance normal, both eyes and all related structures Neck Neck: Yes supple Resp Effort & Inspection: normal respiratory effort, no cough and no stridor Cardio Rhythm: regular rhythm Heart sounds: S1 normal heart sound present and S2 normal heart sound present Skin General skin exam: turgor normal Neuro General: patient oriented x3, tone normal and moves all extremities Extrem Right lower extremity: no edema Left lower extremity: no edema Coding Level of Care Code Est Pt Level 4 (73702) Diagnoses Palpitation R00.2 Headache syndrome G44.89 Anxiety, generalized F41.1 Class 1 obesity due to excess calories with serious comorbidity and body mass index (BMI) of 33.0 to 33.9 in adult E66.09; Z68.33 Obesity classification: adult class 1 (BMI 30 - 34.9) Serious obesity comorbidity presence: with serious comorbidity Body mass index: BMI 33.0-33.9 Additional Codes LAURA-7 Assessment Billing - LAURA-7 Assessment Tool: LAURA-7 Assessment 25444 ([id number]) Assessment & Plan Assessment & Plan (1) Palpitation: Code(s): R00.2 - Palpitations Category: Medical (2) Headache syndrome: Code(s): G44.89 - Other headache syndrome Category: Medical (3) Anxiety, generalized: Code(s): F41.1 - Generalized anxiety disorder Category: Medical (4) Obesity due to excess calories: Code(s): E66.09 - Other obesity due to excess calories Category: Medical Qualifiers: Obesity classification: adult class 1 (BMI 30 - 34.9) Serious obesity comorbidity presence: with serious comorbidity Body mass index: BMI 33.0-33.9 Qualified Code(s): E66.09 - Other obesity due to excess calories; Z68.33 - Body mass index [BMI] 33.0-33.9, adult Plan Patient is 28-year-old female came in today to talk about few medical problems She continued to have palpitations off and on which is causing anxiety inpatient She was evaluated by Dr. Pascual cardiology in 2019, and also had Holter monitor which did show some benign arrhythmias Patient would like to be re-evaluated, referral placed She is also having headaches, which feels like a pressure sensation in the back of the head and left side of the head She has had them for a while, but since recently when her control was changed they have intensified Associated with slight blurring of vision So respond slightly to ibuprofen I am starting her on amitriptyline 25 mg to be taken every night I have also sent sumatriptan and ibuprofen to be taken at onset of headache once a day We will set up telemedicine visit in 3 weeks to see how she is doing BMI is elevated patient is trying to lose weight Orders: Referrals Cardiology Referral R00.2 - Palpitations Medications: New amitriptyline 25 mg PO BEDTIME 30 days 30 tabs 0RF ibuprofen 400 mg PO ONCE 30 days 10 tabs 0RF sumatriptan succinate Take it with 1 ibuprofen at the onset of headache 50 mg PO ONCE 30 days PRN 10 tabs 0RF migraine headache
== END 2024-04-15 09:08 | disposition home or self-care (01) ==
PROVIDERS: PCP Internal Medicine; Visit Provider Internal Medicine
DX: R00.2 Palpitations (principal); G44.89 Other headache syndrome; F41.1 Generalized anxiety disorder; E66.09 Other obesity due to excess calories; Z68.33 Body mass index [BMI] 33.0-33.9, adult

== ENCOUNTER → 2024-04-15 08:41 | Outpatient (BNVA) | payer OTHER, SELFPAY | PROVIDERS: PCP Internal Medicine; Visit Provider Internal Medicine | DX: R00.2 Palpitations (principal); G44.89 Other headache syndrome; F41.1 Generalized anxiety disorder; E66.09 Other obesity due to excess calories; Z68.33 Body mass index [BMI] 33.0-33.9, adult | CPT/HCPCS: 96127; 99212 ==

== ENCOUNTER 2024-05-08 08:13 | Outpatient (AMB) | payer OTHER, SELFPAY ==
--- NOTE | 2024-05-08 08:19 | A.OFFPC_ITS ---
Intake Visit Reasons: 3 weeks follow up Allergies No Known Allergies Allergy (Verified 05/08/24 08:19) Medication List - Last Reconciled 05/08/24 by Nikhil Toney MD amitriptyline 25 mg PO BEDTIME 30 days cyclobenzaprine 10 mg PO BEDTIME 30 days escitalopram oxalate (Lexapro) 10 mg PO DAILY ibuprofen 400 mg PO BID PRN 30 days spironolactone 50 mg PO BID sumatriptan succinate 50 mg PO ONCE PRN 30 days Tobacco use date assessed: 05/08/24 Dental Screening Dental Screen Date: 05/08/24 Did you have a dental visit in the last 12 months?: Yes Did you have a dental problem in the last 6 months where you did not have access to dental care?: No Was dental information given to patient?: Patient has dentist HPI 3 weeks follow up HPI Details F/u GIANG for detail see my last note Patient was started on amitriptyline 25 mg at night her HAs are better and she has not needed sumatriptan so far she would like to continue with medication refill sent she has PE apt coming up in may we will get labs then [facility] Medical History Anxiety, generalized Acquired syphilis Anxiety and depression Back pain HSV-2 infection Intestinal malabsorption Surgical History Hx of section H/O gastric sleeve H/O abdominoplasty H/O breast implant S/P laparoscopic sleeve gastrectomy Obesity Family History Father Bipolar 1 disorder Parkinsons Dementia Mother HTN (hypertension) Son No problems noted. Daughter No problems noted. Brother No problems noted. Sister No problems noted. Unknown Ovarian cancer Social History Household Members: Children Both parents involved: Yes Caregiver staying overnight: No Housing: Apartment Alcohol intake: current Alcohol intake frequency: holidays/special occasions only Patient Tobacco Use Status: Never used Tobacco e-Cigarette/Vaping Use: Never Used Substance Use Type: Marijuana Special latonya needs: No Agree to transfusion: Yes service: No Current occupational status: employed Gender identity: Female Cognitive needs: No Hearing needs: No Vision needs: No Female Reproductive History Menstrual Age of Menarche: 11 Questionnaire Thrive Questionnaire Date Thrive assessed: 04/15/24 AUDIT C Alcohol Use Questionnaire (AUDIT-C) 1. How often do you have a drink containing alcohol?: Never 3. How often do you have six or more drinks on one occasion?: Never Total Score: 0 Score Reviewed/Action Taken: Yes LAURA-7 AMB Questionnaire LAURA-7 Date LAURA - 7 assessed: 04/15/24 Source: Developed by Drs. Caesar Corcoran, Dina Sanchez, Reese Lugo and colleagues, with an educational felix from [employer]. Review of Systems Const All systems reviewed & are unremarkable except as noted in HPI and below Physical exam (Primary Care) Tobacco/Smoking Status: Tobacco use Status Tobacco use date assessed 05/08/24 05/08/24 08:21 Patient Tobacco Use Status Never used Tobacco 05/08/24 08:21 e-Cigarette/Vaping Use Never Used 05/08/24 08:21 Thrive Assessment: Date of Thrive Assessment Date Thrive assessed 04/15/24 05/08/24 08:21 Telehealth Telehealth Telehealth Platform: [employer] Location of provider rendering services: practice address Location of patient: address on file Patient Identification confirmed using: Name, : Yes Telehealth method: voice only Patient verbally consented to treatment: Yes Patient verbally consented to billing insurance company: Yes Patient informed of any privacy concerns related to visit: Yes Coding Level of Care Code Tele Est Pt Level 3 (30650) Diagnoses Headache syndrome G44.89 Assessment & Plan Assessment & Plan (1) Headache syndrome: Code(s): G44.89 - Other headache syndrome Category: Medical Plan F/u GIANG for detail see my last note Patient was started on amitriptyline 25 mg at night her HAs are better and she has not needed sumatriptan so far she would like to continue with medication refill sent she has PE apt coming up in dec we will get labs then Medications: Changed From amitriptyline 25 mg PO BEDTIME 30 days 30 tabs 0RF To amitriptyline 25 mg PO BEDTIME 90 tabs 0RF 90 days
== END 2024-05-08 15:44 | disposition home or self-care (01) ==
LOC: HO.HMCC 08:13
PROVIDERS: PCP Internal Medicine; Visit Provider Internal Medicine
DX: G44.89 Other headache syndrome (principal)

== ENCOUNTER → 2024-05-08 08:13 | Outpatient (BNVA) | payer OTHER, SELFPAY | PROVIDERS: PCP Internal Medicine; Visit Provider Internal Medicine ==

== ENCOUNTER 2024-06-20 09:06 | Outpatient (AMB) | payer OTHER, SELFPAY ==
--- NOTE | 2024-06-20 10:52 | AM.OFFWIN_ITS ---
Intake Vital Signs 06/20/24 11:00 Height 5 ft 3 in Weight 84.822 kg BMI 33.1 BP 122/80 Blood Pressure Location Rt brachial Position Sitting Pulse 74 Pulse Source Pulse Oximeter Temp 97.9 F Temp Source Oral Pulse Oximetry (%) 98 Oxygen Delivery Method Room Air Intake Visit Reasons: EP-nausea, vomiting, Intake Note: Patient here for diarrhea,nausea and vomiting that has been present for 3 days. Patient Tobacco Use Status: Never used Tobacco Allergies No Known Allergies Allergy (Verified 06/20/24 11:00) Do you need a note to return to daycare/school/sports/work: Yes HPI HPI Comments History of Present Illness Details 1117 28 year old female presents w/ nausea, v omiting, fatigue, malaise, myalgias X 2- 3 days. No a/c fevers, chills, cp, sob, cough, sore throat, blood in stool, blood in vomit or changes in urination. Multiple sick contacts w/ similar sx at home. PE benign Hx and pe concerning for Flu vs covid. Unlikley acute abdomen, metabolic derrangments, appendiciits, obstruction, cdiff, cholecysititis. Plan- flu/covid/rsv PFSH Medical History Anxiety, generalized Acquired syphilis Anxiety and depression Back pain HSV-2 infection Intestinal malabsorption Surgical History Hx of section H/O gastric sleeve H/O abdominoplasty H/O breast implant S/P laparoscopic sleeve gastrectomy Obesity Family History Father Bipolar 1 disorder Parkinsons Dementia Mother HTN (hypertension) Son No problems noted. Daughter No problems noted. Brother No problems noted. Sister No problems noted. Unknown Ovarian cancer Social History Household Members: Children Both parents involved: Yes Caregiver staying overnight: No Housing: Apartment Alcohol intake: current Alcohol intake frequency: holidays/special occasions only Patient Tobacco Use Status: Never used Tobacco e-Cigarette/Vaping Use: Never Used Substance Use Type: Marijuana Special latonya needs: No Agree to transfusion: Yes service: No Current occupational status: employed Gender identity: Female Cognitive needs: No Hearing needs: No Vision needs: No Female Reproductive History Menstrual Age of Menarche: 11 Review of Systems Const All systems reviewed & are unremarkable except as noted in HPI and below Physical Exam Vital Signs: Last Vital Signs Temp 97.9 F 06/20/24 11:00 Pulse 74 06/20/24 11:00 BP 122/80 06/20/24 11:00 Pulse Ox 98 06/20/24 11:00 Oxygen Delivery Method Room Air 06/20/24 11:00 BMI result Body Mass Index 33.1 vss Appearance: Alert.? Oriented X3.? No acute distress.? Head: Normocephalic, atraumatic, no step-offs or deformities Eyes: Pupils equal, round and reactive to light.? CVS: Normal heart rate and rhythm.? Pulses normal.? Respiratory: No respiratory distress.? Breath sounds normal.? Abdomen: Soft and nontender.? Skin: Skin warm and dry.? Normal skin color.? Normal skin turgor.? Extremities: No lower extremity edema.? No calf ttp. 5/5 strength to bilateral upper and lower extremities Neuro: Oriented X 3.? No motor deficit.? No sensory deficit. CN 2-12 intact Assessment & Plan Assessment & Plan (1) Viral infection: Code(s): B34.9 - Viral infection, unspecified Plan Take your medications as prescribed. If you were prescribed antibiotics today, it is important that you take your medication to their entirety, do not skip any doses, do not finish them early. Follow-up with your primary care provider this week. Return to the emergency department with new or worsening symptoms. In case of emergency call 911 Orders: Orders SARS-CoV2/FLU/RSV Today B34.9 - Viral infection, unspecified Coding Level of Care Code Est Pt Level 3 (55203) Diagnoses Viral infection B34.9
[2024-06-20 11:00] VITALS: BP 122/80; PULSE 74; TEMP 36.6; O2SAT 98; BMI 33.1
== END 2024-06-20 12:09 | disposition home or self-care (01) ==
PROVIDERS: PCP Internal Medicine; Visit Provider Physician Assistant
DX: B34.9 Viral infection, unspecified (principal)

== ENCOUNTER 2024-06-20 09:06 | Outpatient (REF) | payer OTHER, SELFPAY ==
[2024-06-20 13:56] LABS: Influenza A PCR NEGATIVE (Negative); Influenza B PCR NEGATIVE (Negative); Resp Syncy Virus RNA Qual PCR NEGATIVE (Negative); SARS COV2 PCR INHOUSE NEGATIVE (Negative)
== END 2024-06-20 09:07 | disposition home or self-care (01) ==
LOC: HO.LNP 09:06
PROVIDERS: PCP Internal Medicine; Visit Provider Physician Assistant
DX: B34.9 Viral infection, unspecified (principal)
CPT/HCPCS: 0241U; 99212

== ENCOUNTER 2024-07-07 12:26 | Outpatient (AMB) | payer OTHER, SELFPAY ==
--- NOTE | 2024-07-07 12:09 | MHC.OFFVISWM ---
VS Expanded 07/07/24 12:12 Height 5 ft 3 in Weight 185 lb BMI 32.8 Intake Visit Reasons: TELEPHONE PO LSG 01/06/20 Allergies No Known Allergies Allergy (Verified 06/20/24 11:00) Medication List - Last Reconciled 07/07/24 by ALFONSO Mortensen amitriptyline 25 mg PO BEDTIME 90 days cyclobenzaprine 10 mg PO BEDTIME 30 days escitalopram oxalate (Lexapro) 10 mg PO DAILY ibuprofen 400 mg PO BID PRN 30 days levonorgestrel (Plan B One-Step) 1.5 mg PO ONCE loperamide (Anti-Diarrheal (loperamide)) 2 mg PO QID PRN ondansetron 4 mg PO Q8-12H PRN spironolactone 50 mg PO BID sumatriptan succinate 50 mg PO ONCE PRN 30 days HPI Comments Details: This?is a?28?yo female who is s/p LSG 01/06/2020. Presents for 4.5 year post op visit. Weight at last visit on 05/09/2022 was 190.6 pounds with a BMI of 33.7, weight today is 185 pounds, representing a 5.6 pound weight loss with a BMI today of 32.8.? No complaints of nausea, emesis, abdominal pain or reflux, or constipation. Just had surgery on Sunday- implants removed, hoping it would help improve back pain. Present meal plan includes: just prior to surgery, got back to bars and shakes- did okay with this until her procedure Uses Fairlife or Premier shakes, Atkins bars Exercise routine includes: has ongoing back pain, but goes to gym; feels exercise actually helps back pain likes weightlifting and a little cardio, was doing [employer] Did the patient ever have any of these conditions and are they resolved or still being treated? GERD: never KELLEY: never DM: never HTN: never Hyperlipidemia: never Post op complications: none PFSH Medical History Anxiety, generalized Acquired syphilis Anxiety and depression Back pain HSV-2 infection Intestinal malabsorption Surgical History Hx of section H/O gastric sleeve H/O abdominoplasty H/O breast implant S/P laparoscopic sleeve gastrectomy Obesity Family History Father Bipolar 1 disorder Parkinsons Dementia Mother HTN (hypertension) Son No problems noted. Daughter No problems noted. Brother No problems noted. Sister No problems noted. Unknown Ovarian cancer Social History Household Members: Children Both parents involved: Yes Caregiver staying overnight: No Housing: Apartment Alcohol intake: current Alcohol intake frequency: holidays/special occasions only Patient Tobacco Use Status: Never used Tobacco e-Cigarette/Vaping Use: Never Used Substance Use Type: Marijuana Special latonya needs: No Agree to transfusion: Yes service: No Current occupational status: employed Gender identity: Female Cognitive needs: No Hearing needs: No Vision needs: No Female Reproductive History Menstrual Age of Menarche: 11 Telehealth Telehealth Telehealth Platform: Telephone Location of provider rendering services: other Location of patient: address on file Patient Identification confirmed using: Name, : Yes Telehealth method: voice only Patient verbally consented to treatment: Yes Patient verbally consented to billing insurance company: Yes Patient informed of any privacy concerns related to visit: Yes Minutes spent on Phone/Video with Pt.: 14 Assessment & Plan Assessment & Plan (1) Obesity due to excess calories: Code(s): E66.09 - Other obesity due to excess calories Category: Medical Qualifiers: Obesity classification: adult class 1 (BMI 30 - 34.9) Serious obesity comorbidity presence: with serious comorbidity Body mass index: BMI 33.0-33.9 Qualified Code(s): E66.09 - Other obesity due to excess calories; Z68.33 - Body mass index [BMI] 33.0-33.9, adult (2) S/P laparoscopic sleeve gastrectomy: Comment: 01/06/2020 Code(s): Z98.84 - Bariatric surgery status Category: Medical Plan Suggested meal plan of either 2 shakes and 1 meal or 1 shake, 2 bars and one meal. Pt likely will do 2 shakes. She struggles with hair loss- discussed adequate protein intake, vitamin supplementation (she reports being inconsistent), and ok to use biotin. Labs ordered. RTC 6-8 weeks to check in, encouraged pt to contact me via text in between appts with any questions. I spent a total of 30 minutes reviewing/updating records, examining the patient and counseling the patient on weight management as detailed above. Orders: Orders Hemoglobin A1c Today Z98.84 - Bariatric surgery status Complete Blood Count Auto Diff Today Z98.84 - Bariatric surgery status Lipid Panel Today Z98.84 - Bariatric surgery status Zinc Today Z98.84 - Bariatric surgery status Vitamin A Today Z98.84 - Bariatric surgery status TSH reflex Free T4 Today Z98.84 - Bariatric surgery status Vitamin D 25-OH Total Today Z98.84 - Bariatric surgery status Insulin Today Z98.84 - Bariatric surgery status IRON PROFILE Today Z98.84 - Bariatric surgery status Comprehensive Met. Panel Today Z98.84 - Bariatric surgery status Vitamin B12 and Folate Today Z98.84 - Bariatric surgery status C Reactive Protein Today Z98.84 - Bariatric surgery status Vitamin B1 Today Z98.84 - Bariatric surgery status Ferritin Today Z98.84 - Bariatric surgery status
[2024-07-07 12:12] VITALS: BMI 32.8
== END 2024-07-07 12:27 | disposition home or self-care (01) ==
LOC: HO.HBS 12:26
PROVIDERS: PCP Internal Medicine; Visit Provider Physician Assistant Surgical
DX: E66.09 Other obesity due to excess calories (principal); Z68.33 Body mass index [BMI] 33.0-33.9, adult; Z98.84 Bariatric surgery status
CPT/HCPCS: 99214; G2211

== ENCOUNTER 2024-07-15 08:33 | Outpatient (REF) | payer OTHER, SELFPAY ==
--- OUTSIDE RECORDS SUMMARY | 2024-07-15 08:45 | XMS_ITS | Continuity of Care Document ---
Author Organization [facility] [place] Address [address] [place] [id number] Care Team Providers Care Tub Tender Name Role Phone Feng MALDONADO, Asma Primary Care Physician Encounter [facility] Date(s): 05/19/24 - 06/18/24 [facility] [address] [id number] Encounter Type: Triage Allergies, Adverse Reactions, Alerts No Known Allergies Immunizations Given and Recorded Vaccine Date Status Refusal Reason tetanus/diphtheria/pertussis, acel(Tdap) 12/06/21 Recorded tetanus/diphtheria/pertussis, acel(Tdap) 03/22/18 Recorded tetanus/diphtheria/pertussis, acel(Tdap) 04/23/16 Given SARS-CoV-2 (COVID-19) mRNA BNT-162b2 vac 08/06/20 Recorded SARS-CoV-2 (COVID-19) mRNA BNT-162b2 vac 07/26/20 Recorded SARS-CoV-2 (COVID-19) mRNA BNT-162b2 vac 07/15/20 Recorded influenza virus vaccine, inactivated 02/26/19 Kurt rded influenza virus vaccine, inactivated 03/23/15 Kurt rded hepatitis B adult vaccine 11/15/18 Recorded hepatitis B pediatric vaccine 03/03/16 Recorded hepatitis B pediatric vaccine 01/07/16 Recorded Measles/Mumps/Rubella Virus Vaccine 01/07/16 Recor ded Medications acetaminophen 325 mg oral capsule 2 capsule = 650 mg, By Mouth, Every 4 hours, PRN as needed for pain, # 20 capsule, 0 Refills, Maintenance, 01/19/22 6:34:00 AM EDT, Capsule, [id number], Partial fill upon patient request if the prescription is for a schedule II opioid drug., 160, cm, 01/19/22 2:02:00 EDT, Height, 95, kg, 01/16/22 8:30:00 EDT, Dry Weight Start Date: 01/19/22 Status: Ordered Quantity: 20.0 Unit: capsule Repeat number: 1 albuterol CFC free 90 mcg/inh inhalation aerosol 2, puffs, Inhalation, 4 times a day, PRN, # 25 Gm, Refills 0, Maintenance, 12/11/21 8:35:00 PM EDT, Aerosol Start Date: 12/11/21 Status: Ordered Quantity: 25.0 Unit: g Repeat number: 1 spironolactone 50 mg oral tablet 1 tablet = 50 mg, By Mouth, 2 times a day, # 60 tablet, 0 Refills, Maintenance, 03/20/22 3:41:00 PM EDT, Tablet, Partial fill upon patient request if the prescription is for a schedule II opioid drug. Start Date: 03/20/22 Status: Ordered Quantity: 60.0 Unit: tablet Repeat number: 1 Problem List Condition Confirmation Course Effective Dates Status H ealth Status Informant Asthma Confirmed Active Bipolar disorder Confirmed Active Depression Confirmed Active Generalized headaches Confirmed Active Genital HSV Confirmed Active Hx of abdominoplasty Confirmed 10/13/20 Active History of bilateral saline breast implants Confirmed 10/13/20 Active S/P gastric sleeve procedure Confirmed 01/06/20 Active H/O syphilis 1 Confirmed 2018 Active Morbid obesity with BMI of 40.0-44.9, adult Confirmed Active Obese class I Confirmed Active KELLEY (obstructive sleep apnea) Confirmed Active 12017 Social History Social History Type Response Smoking Status Never (less than 100 in lifetime) entered on: 06/01/21 Sex Sex Representation Female (finding) Patient Care team information Care Team Personnel Name: Feng MALDONADO, Nikhil Position: Reference Physician Member Role: PCP Address: [address] [place] [address] Telecom: Care Team Related Persons Name: BERKLEY STORY Name: KEDAR VILCHIS Name: HLEEN ANDRADE Insurance Providers Guarantor name: [facility] Plan Information #: 1 Payer: [employer] Member Number: NA Policy Number: NA Group Number: NA
--- OUTSIDE RECORDS SUMMARY | 2024-07-15 08:45 | XMS_ITS | Continuity of Care Document ---
Author Organization [facility] ter Address [address] [place] [id number]- Care Team Providers Care Core Dropper Name Role Phone Feng MALDONADO, [id number] Date(s): 07/04/24 - 07/04/24 [facility] [address] [place] [address] Discharge Disposition: A-D/C Home Attending Physician: Mark Torres MD Admitting Physician: Mark Torres MD Referring Physician: Mark Torres MD Encounter Type: Disch Daystay Allergies, Adverse Reactions, Alerts No Known Allergies [...] Recor ded Medications acetaminophen 325 mg oral tablet 650 mg, 2, tablet, By Mouth, Every 6 hours, PRN, for 7 days, not to exceed 4000 mg/day, # 50 tablet, Refills 0, Tot. Refills 0, Acute 07/11/24 11:41:00 AM EST, as needed for fever, 07/04/24 11:41:00 AMEST, Route to Pharmacy Electronically, [facility]/pharmacy #[id number], Partial fill upon patient request if theprescription is for a schedule II opioid drug., 160, cm, 07/04/24 8:28:00 EST, Height, 83.3, kg, 04/18 8:28:00 EST, Dry Weight Start Date: 07/04/24 Stop Date: 07/11/24 Status: Ordered Quantity: 50.0 Unit: tablet Repeat number: 1 albuterol CFC free 90 mcg/inh inhalation aerosol 2, puffs, Inhalation, 4 times a day, PRN, # 25 Gm, Refills 0, Maintenance, 12/11/21 8:35:00 PM EDT, Aerosol Start Date: 12/11/21 Status: Ordered Quantity: 25.0 Unit: g Repeat number: 1 amitriptyline 25 mg oral tablet TAKE 1 TABLET BY MOUTH AT BEDTIME FOR 90 DAYS Start Date: 07/03/24 Status: Ordered Repeat number: 1 buPROPion 100 mg/12 hours (SR) oral tablet, extended release TAKE 1 TABLET BY MOUTH EVERY DAY IN THE MORNING Start Date: 07/03/24 Status: Ordered Repeat number: 1 Dilaudid Inj 0.2 mg, Injection, IV Push Slowly, Every 8 minutes for 10 doses/times, PACU ORDER, Hold for: over sedation, RR<10, PRN for Pain , Severe, Routine, 07/04/24 10:36:00 AM EST Start Date: 07/04/24 Stop Date: 07/04/24 Status: Discontinued Repeat number: 1 ibuprofen 400 mg oral tablet TAKE 1 TABLET BY MOUTH 2 TIMES A DAY NEEDED FOR PAIN FOR 30 DAYS Start Date: 07/03/24 Status: Ordered Repeat number: 1 ibuprofen 600 mg oral tablet 600 mg, 1, tablet, By Mouth, 4 times a day, for 7 days, not to exceed 3200 mg/day, # 28 tablet, Refills 0, Tot. Refills 0, Acute 07/11/24 11:41:00 AM EST, 07/04/24 11:41:00 AM EST, Route to Pharmacy Electronically, [facility]/pharmacy #[id number], Partial fill upon patient request if the prescription is for a schedule II opioid drug., 160, cm, 07/04/24 8:28:00 EST, Height, 83.3, kg, 07/04/24 8:28:00 EST, Dry Weight Start Date: 07/04/24 Stop Date: 07/11/24 Status: Ordered Quantity: 28.0 Unit: tablet Repeat number: 1 oxyCODONE 5 mg oral tablet 5 mg, Tablet, By Mouth, Once, PRN for Pain , Moderate, Routine, 07/04/24 10:37:00 AM EST Start Date: 07/04/24 Stop Date: 07/04/24 Status: Completed Repeat number: 1 oxyCODONE 5 mg oral tablet 5 mg, 1, tablet, By Mouth, Every 6 hours, PRN, for 5 days, for breakthrough pain, # 12 tablet, Refills 0, Tot. Refills 0, Acute 07/09/24 11:42:00 AM EST, as needed for pain, 07/04/24 11:42:00 AM EST, Route to Pharmacy Electronically, [facility]/pharmacy #[id number], Partial fill upon patient request if the prescription is for a schedule II opioid drug., 160, cm, 07/04/24 8:28:00 EST, Height, 83.3, kg, 07/04/24 8:28:00 EST, Dry Weight Start Date: 07/04/24 Stop Date: 07/09/24 Status: Ordered Quantity: 12.0 Unit: tablet Repeat number: 1 QUEtiapine 50 mg oral tablet, extended release TAKE 1 TABLET BY MOUTH EVERY EVENING NEEDED FOR ANXIETY OR INSOMNIA Start Date: 07/03/24 Status: Ordered Repeat number: 1 sertraline 25 mg oral tablet TAKE 1 TABLET BY MOUTH EVERY DAY IN THE MORNING Start Date: 07/03/24 Status: Ordered Repeat number: 1 spironolactone 50 mg oral tablet TAKE TWO TABLETS IN THE MORNING AND 1 TABLET AT NIGHT. Start Date: 07/03/24 Status: Ordered Repeat number: 1 SUMAtriptan 50 mg oral tablet 1 tablet = 50 mg, By Mouth, Daily, PRN for migraine headache, may repeat dose after 2 hours up to amaximum of 2, # 18 tablet, 0 Refills, Maintenance, 07/03/24 8:49:00 AM EST, Tablet, Partial fill uponpatient request if the prescription is for a schedule II opioid drug. Start Date: 07/03/24 Status: Ordered Quantity: 18.0 Unit: tablet Repeat number: 1 Problem List [...] KELLEY (obstructive sleep apnea) Confirmed Active 12017 Vital Signs Most recent to oldest [Reference Range]: 1 2 3 Height 160 cm (07/04/24 8:28 AM) 160 cm (07/03/24 9:01 AM) Weight 83.3 kg (07/04/24 8:28 AM) 84 kg (07/03/24 9:01 AM) Oxygen Saturation [94-100 %] 98 % (07/04/24 1:00 PM) 99 % (07/04/24 12:30 PM) 98 % (07/04/24 12:15 PM) Pulse Rate [55-90 bpm] 64 bpm (07/04/24 8:28 AM) Body Mass Index [18.5-24.99 kg/m2] 32.54 kg/m2 *>HHI* (07/04/24 8:28 AM) 32.81 kg/m2 *>HHI* (07/03/24 9:01 AM) Blood Pressure [90-138/55-84 mm Hg] 121/80mm Hg (07/04/24 1:00 PM) 115/80mm Hg (07/04/24 12:30 PM) 125/77mm Hg (07/04/24 12:15 PM) Respiratory Rate [16-30 br/min] 14 br/min *L* (07/04/24 1:00 PM) 14 br/min *L* (07/04/24 12:45 PM) 14 br/min *L* (07/04/24 12:40 PM) Temperature [96.8-100.4 DegF] 97.9 DegF (07/04/24 11:45 AM) 97.7 DegF (07/04/24 8:28 AM) Liters per Minute 6 L/min (07/04/24 11:45 AM) Mode of Delivery (Oxygen) Room air (07/04/24 1:00 PM) Room air (07/04/24 12:30 PM) Room air (07/04/24 12:15 PM) Blood pressure sites Arm, right (07/04/24 1:00 PM) Arm, right (07/04/24 12:30 PM) Arm, right (07/04/24 12:15 PM) Temperature Route Temporal (07/04/24 11:45 AM) Temporal (07/04/24 8:28 AM) Dry Weight 83.3 kg (07/04/24 8:28 AM) 84 kg (07/03/24 9:01 AM) Weight Obtained Via Standing scale (07/04/24 8:28 AM) Patient/family stated (07/03/24 9:01 AM) Dry Weight Obtained Via Standing scale (07/04/24 8:28 AM) Patient/family stated (07/03/24 9:01 AM) Social History Social History Type Response Smoking Status Never (less than 100 in lifetime) entered on: 06/01/21 Sex Sex Representation Female (finding) Note * Evelia Tyson RN: PERFORM Event Display: Discharge/Transfer Note Hospital Authored Date: [id number] Nursing Discharge Note Entered On: 07/04/2024 13:21 EST Performed On: 07/04/2024 13:21 EST by Evelia Tyson RN Nursing Discharge Note 2 Discharge Time : 07/04/2024 13:21 EST Discharge Level of Care at Discharge : Home/Long-Term/Foster Care Patient Left Unit Via : Wheelchair Patient Accompanied Off Unit with : Significant other DC Instructions Provided & Signed by Pt : Yes Patient Understands D/C Instructions : Yes Patient Instructions Discharge Signed : Yes Did Pt have Specialty Bed or Wound Vac : No Evelia Tyson RN - 07/04/2024 13:21 EST * Evelia Tyson RN: PERFORM Event Display: Patient Education/Instruction Authored Date: [id number] Surgery Adult Discharge Instructions [address] [address] Name: XIMENA STORY : 1995?? Visit: 07/04/2024 08:04?? Current Date: 07/04/2024 12:43 ?? Account: [id number]?? Surgery Discharge Instructions We would like to thank you for allowing us to assist you with your healthcare needs. The following includes patient education materials and information regarding your injury/illness. Our entire staffstrives to provide an excellent experience for our patients and their families. PLEASE ENSURE YOU FOLLOW-UP PER THE INSTRUCTIONS BELOW! ?? YOUR OPINION IS IMPORTANT TO US! Please complete the survey you may receive by mail or email. Your feedback will be used to make improvements to the healthcare experiences of our patients and their families. Surveys are administered by [employer] ?? If further treatment with your primary care physician or another doctor is recommended, it is important for you to keep the appointment. Call your primary care physician or return to the Emergency Department immediately if your condition worsens, fails to improve, or new symptoms develop. If you need to find a doctor, you can call [facility] Link for a referral at [phone] or toll free at [phone]) or log in to [email or web address].. ?? [facility], in keeping with [facility] guidance, no longer requires face masks for staff, patientsor visitors in most situations. Similiar to time spent indoors at other locations, there is the chance that you were exposed to repiratory viruses during your time with us (such as flu or COVID-19). If you develop symptoms concerning for a viral respiratory infection, please seek testing (and treatment if indicated) from your medical provider or home test kit. ?? You can view and manage your care through the patient portal or by using a health care johan of your choosing. [employer] is a website that allows you to securely view your medical information including your hospital discharge summary, office visit summaries, medications and follow-up visits. You can also request appointments, renew medications, and request access to your medical information using a health care johan of your choosing, or just ask a question. You are entitled to know the individuals who participated in your treatment. This information is available within your medical record and will be provided upon your request. You can enroll at [email or web address] or register d uring your next office visit. You have been discharged from [facility], Patient Care Unit: [facility]??. If you have any questions regarding these instructions after you leave, please call us and we will be happy to assist you. [facility] Your Care Team Attending Physician Melissa MALDONADO, Mark?? Discharging Providers Glory Miramontes Reason for Admission RUPURED LEFT BREAST IMPLANT CS DS Primary Care Provider Feng MALDONADO, Asma? Advance Directive Health Care Proxy on File No Patient refuses to discuss What to do next Instructions From Your Doctor Paper tapes will cover your incisions. Do NOT remove them. ?? Swelling and bruising may increase during the first few days but then should decrease over the nextseveral weeks ?? No ice. This decreases blood flow to the skin. ?? Wear your surgical bra/binder at all time except for showering, but make sure it is not too tight. ?? Keep a drain log and bring it to your follow up appointment ?? Shower: you may shower 3 days after your surgery. ? All paper tapes??can get wet with soap and water. ? If you have a clear dressing (Tegaderm) leave this on. ? Pat paper tapes??dry with a towel and wait 15 minutes before putting a bra back on. You mayyou a nonadherent pad over your incision when you put your bra on to reduce friction/rubbing. ?? Activity: No lifting, pushing or pulling anything heavier than a gallon of milk for the first 4 weeks after surgery. ? Arms should stay by your sides when at rest. ? Do not raise your arms higher than shoulder height.?? Okay to gently move the arms and elbows to prevent stiffness. ? If you feel a pull you are moving too much. ? You must get up and walk around the house every few hours during the day. ?? Postoperative Pain Most people will have some pain after surgery.?? IT is important to keep pain under control to helpyou with your recovery.?? Good pain control should help you feel comfortable enough to take deep breaths, walk and sleep better. Local Anesthesia During your surgery, if you surgeon used a local anesthetic you will have numbness and tingling around the incision that may last for 6-12 hours or more.?? When you start to recover feeling around the surgical area you will also likely experience some pain.?? It is best to take our first dose of pain medicine BEFORE your local anesthesia wears off to get a head start on pain control. Anti-inflammatory Medications ? Over the counter (OTC) Nonsteroidal Anti-inflammatory Drugs (NSAIDS) such as ibuprofen (Advil, Motrin) or Naproxen (Aleve) can be a powerful way to help reduce pain and inflammation after surgery.?? There are available without prescription and should be take according to the label instructions.?? Taking NSAIDS with food can lessen the chance of stomach upset. ? Acetaminophen (Tylenol) is another powerful non-prescription medication that works to relieve pain.?? Because it mechanism is different than that of NSAIDS like ibuprofen, acetaminophen can be used together with ibuprofen for improved pain control. Recommended Schedule for Medications Ibuprofen (Advil or Motrin) 600mg every 6 hours (three 200mg tablets) Acetaminophen (Tylenol) 650mg every 6 hours (two 325mg tablets) It is recommended to alternate your medications for optimal pain relief.?? For Example ? 6:00 am ??? Ibuprofen 600mg ? 9:00am ? Acetaminophen 650mg ? 12:00pm ??? Ibuprofen 600mg ? 3:00pm ? Acetaminophen 650mg ? 6:00pm ??? Ibuprofen 600 mg ? 9:00pm -?? Acetaminophen 650mg ? What about prescription pain medications/opioids? ?? If your doctor prescribed a narcotic medication (such as codeine, oxycodone, hydrocodone, hydromorphone) there are some additional important things to know: 1.? Narcotic drugs can make you feel drowsy, and you should not attempt to drive, operate [place], or sign legal documents while taking these medications. 2.? Many patients can experience dizziness or nausea with narcotic medication.?? To minimize side effects taking the medication with food and using ?? pill at a time can be useful. 3.? IT IS SAFE to take narcotic medication at the same time as Ibuprofen (Motrin/Advil) or Naproxen (Aleve) 4.? IT IS NOT SAFE to take narcotic medication at the same time as Tylenol.?? Your prescriptionmedication MAY contain acetaminophen already (Percocet, Vicodin and Tylenol #3).?? DO NOT combine these medications with acetaminophen (Tylenol) which can be dangerous in large doses.? If you have questions, ask your pharmacist, or call the office for clarification. ?? Please note that it is best to take all medications with food, unless you are instructed otherwise. ?? MAXIMUM DOSES IN 24 HOURS Ibuprofen = 3200mg Acetaminophen = 3000mg ?? Orders?? Unit Discharge Criteria Met, ??07/04/24 11:41:00 EST?? Prescriptions??, ??07/04/24 11:41:00 EST?? Instructions from your Care Team Please follow all written instructions provided by your surgeon.? - Keep your arms at your side.?? - Please position on your back only.?? - Your prescriptions have been sent electronically to your pharmacy. - Please wear your surgical bra at all times; you may change the dressings if they become saturated. - Do NOT apply ice. ?? - Last tylenol given at 10:51am, next dose can be taken after 4:51pm. - Last oxycodone given at 12:45pm, next dose can be taken after 6:45pm. Scheduled Follow-Up Appointments Sunday 9:40 AM EST ?? With: Rocio Singleton Where: [facility] Plastic Surgery [address] [place] [id number]- Status: Pending You Need to Schedule the Following Appointments Follow Up with??Melissa MALDONADO, Mark When:??Within 1 to 2 weeks Where: [address] [place] [address] [address] [facility] Plastic and [place] [address]- Discharge Medications XIMENA STORY :1995 Visit Date:07/04/2024 Medications: Please continue your medications until treatment is completed or stopped by your provider. You may resume your daily prescription medications. Discuss any questions related to medications with your provider. What How Much When Instructions Next Dose New Oxycodone (oxyCODONE 5 mg oral tablet) 1 tab(s) Oral Every 6 hours as needed for as needed for pain Duration: 5 Days for breakthrough pain ?? Pickup at [facility]/pharmacy #[id number] 4:51pm Changed Ibuprofen (ibuprofen 400 mg oral tablet) TAKE 1 TABLET BY MOUTH 2 TIMES A DAY NEEDED FOR PAIN FOR 30 DAYS ?? 6:45pm Changed Ibuprofen (ibuprofen 600 mg oral tablet) 1 tab(s) Oral 4 times a day Duration: 7 Days not to exceed 3200 mg/ day ?? Pickup at [facility]/pharmacy #[id number] anytime Unchanged Albuterol (albuterol CFC free 90 mcg/ inh inhalation aerosol) 2 puff(s) Inhalation 4 times a day as needed for for wheezing Unchanged amiTRIPTYLINE (amitriptyline 25 mg oral tablet) TAKE 1 TABLET BY MOUTH AT BEDTIME FOR 90 DAYS ?? Unchanged BuPROpion (buPROPion 100 mg/ 12 hours (SR) oral tablet, extended release) TAKE 1 TABLET BY MOUTH EVERY DAY IN THE MORNING ?? Unchanged Quetiapine (QUEtiapine 50 mg oral tablet, extended release) TAKE 1 TABLET BY MOUTH EVERY EVENING NEEDED FOR ANXIETY OR INSOMNIA ?? Unchanged Sertraline (sertraline 25 mg oral tablet) TAKE 1 TABLET BY MOUTH EVERY DAY IN THE MORNING ?? Unchanged Spironolactone (spironolactone 50 mg oral tablet) TAKE TWO TABLETS IN THE MORNING AND 1 TABLET AT NIGHT. ?? Unchanged Sumatriptan (SUMAtriptan 50 mg oral tablet) 1 tab(s) Oral Daily as needed for for migraine headache may repeat dose after 2 hours up to a maximum of 2 ?? Pharmacy Information [facility]/pharmacy #[id number]: [address], [place] [id number] [phone] Allergies (NKA means No Known Allergies) NKA Education Materials Below is the list of Educational Leaflet Providered with your Discharge Instructions. [employer] Patient Education - Taking NSAIDs Safely?? [employer] Patient Education - Surgery Medical Daystay Surgical Overnight Discharge Instructions?? [employer] Patient Education - ??NSAID Analgesic Schedule?? Valuables and Belongings I fully understand and agree that [facility] accepts no responsibility for all my personal property including clothing, toilet articles, radios, jewelry, dentures, hearing aids, rings, money, or any other property that is in my possession or is brought to me after admission. I understand certain valuables may be placed in a hospital safe for a short period of time. I understand that the hospital is not liable for loss or damage due to accident, fire, or other natural occurrence while said property is in the safe. I accept full responsibility for any personal property that I keep with me, and will not hold the hospital responsible in case of loss or disappearance. I acknowledge that i have been encouraged to send valuables and belongings home. ?? Review of Valuable and Belonging List: With patient Date for Pt to Sign Valuables/Belongings: 07/04/24 08:28:00 ?? Valuables & Belongings ?? Clothes Electronic devices Jewelry Monetary Items Personal devices Miscellaneous Medications (Valuables) Valuables at Bedside Jacket, Pants, Shirt, Shoes, Undergarments Cell phone ? Valuables Sent Home ? Valuables Sent to Security ? Valuables Sent to Locker ? Other Discharge Information ? Pulmonary Rehab Status?? Pulmonary Rehab Discharge Status?? Respiratory Rate:??14 br/min??Low ? Common Emergency Awareness Tips IS IT A STROKE? Act FAST and Check for these signs: FACE Does the face look uneven? ARM Does one arm drift down? SPEECH Does their speech sound strange? TIME Call at any sign of stroke ?? Heart Attack Signs Chest discomfort: Most heart attacks involve discomfort in the center of the chest and lasts more than a few minutes, or goes away and comes back. It can feel like uncomfortable pressure, squeezing, fullness or pain. Discomfort in upper body: Symptoms can include pain or discomfort in one or both arms, back, neck, jaw or stomach. Shortness of breath: With or without discomfort. Other signs: Breaking out in a cold sweat, nausea, or lightheaded. Remember, MINUTES DO MATTER. If you experience any of these heart attack warning signs, call to get immediate medical attention! ?? Smoking can increase your chances of developing chronic health problems and can cause harmful effects to other family members in your house. If you smoke, you are strongly encouraged to quit. Please call [facility] Link at [phone] or [phone] ([phone]) or log in to [email or web address] for referrals to smoking cessation programs. ?? The National Suicide Prevention Hotline is available 15/01 if you or someone you know needs to find a reason to keep living. By calling 7-269-946-[employer] (5319) you'll be connected to a skilled, trained counselor at a crisis center in your area. SURGERY DISCHARGE INSTRUCTIONS SIGNATURE XIMENA ORDAZ Location:[facility] Registration Date and Time:07/04/2024 08:04 EST Primary Care Physician: Feng MALDONADO, [facility], Attending Physician: Melissa MALDONADO, Mark, ADRIANE RIVERAMA, have received the above patient education materials/instructions and have verbalized understanding. If ambulance or transport services are being used I further acknowledge being givena choice of service. ?? If you need to contact me, please call me at this number: see CIS . Patient/Compensation And Hris Analyst Name: XIMENA JEZ Patient/Compensation And Hris Analyst Signature: Relationship to Patient: Self Witness Name/Signature: Date: 07/04/24 * Evelia Tyson RN: PERFORM Event Display: Patient Education Leaflets Authored Date: [id number] Taking NSAIDs Safely ?? 5819 Taking NSAIDs Safely When you have a headache or muscle pain, you may reach for an wpcl-rhz-ykhsiin remedy. Nonsteroidalanti-inflammatory drugs (NSAIDs) are a common choice. But even though you can buy them without a prescription, that doesn???t mean they don't have risks. Here???s what you need to know to use them safely. What are NSAIDs? NSAIDs are a type of medicine used to treat pain and swelling (inflammation). They can also reduce fever. Lower-dose versions can be bought over the counter. Higher doses may be prescribed for long-term (chronic) conditions. These include rheumatoid arthritis and osteoarthritis. These are some of the most common NSAIDs: ??? Aspirin ??? Ibuprofen ??? Naproxen ??? Celecoxib ??? Ketoprofen ??? Indomethacin ?? How do NSAIDs work? NSAIDs keep the body from using DE JESUS-1 and DE JESUS-2 enzymes. These enzymes make prostaglandins. These are a group of fatty acids in the body. These fatty acids play a major part in pain and inflammation. ?? What are their risks? NSAIDs can cause bleeding in the stomach. This is more likely to occur if you take higher doses fora long period of time. Be sure to eat something before taking NSAIDs. This will protect your stomach by coating it. Your healthcare provider might also prescribe a proton pump inhibitor (PPI) to decrease your stomach acid. NSAIDs may also raise your risk for heart attack, heart failure, and stroke. The FDA requires that the packaging of NSAIDs have a warning about this serious health risk. People who already have heartdisease are most at risk. But anyone who takes NSAIDs is at risk. NSAIDs can also cause kidney damage. If you have chronic kidney disease, only use NSAIDs if your healthcare provider says it???s OK. Use the lowest dose for the shortest amount of time possible. If you need to use NSAIDs for a long time, do so only with your healthcare provider's close direction. ?? How can you protect yourself? In general, hrin-fuw-hxuielf NSAIDs are safe to ease occasional aches and pains. But you still needto be smart about using them. Follow these tips to minimize any side effects or health risks: ??? Talk with your healthcare provider or pharmacist first. Tell them about all the prescription and krxv-lme-ujwhcop medicines you take. They can tell you if an NSAID is not safe for you. NSAIDs can interact with some medicines. These include medicines used to treat depression and high blood pressure. ??? Keep track of your doses and timing. Take only the advised amount for the shortest period of timeneeded. Higher doses can make health problems more likely. Tell your healthcare provider if you take the medicine for 10 days or more. ??? Read all medicine labels. Don't take 2 or more smic-jmk-ythleeb products with the same active ingredient. You???re more likely to have side effects or an overdose. Read the Drug Facts label first before taking more than 1 fxwl-opf-jeutvwa medicine. Note that some cough and cold medicines contain NSAIDs. ??? Don't take NSAIDs if you take daily aspirin. Takingboth NSAIDs and aspirin together can raise your risk for side effects, especially stomach bleeding.??? Be aware of symptoms such as stomach problems, kidney problems, high blood pressure, heart issues, and rashes. ?? Last Reviewed Date: 2023 ?? The [employer]. All rights reserved. This information is not intended as a substitute for professional medical care. Always follow your healthcare professional's instructions. ?? * Aurora Davalos RN: PERFORM Event Display: Patient Education Leaflets Authored Date: [id number] Surgery Medical Daystay Surgical Overnight Discharge Instructions ?? 295 Medical Daystay/Surgical Overnight Discharge Instructions ? Since your coordination and judgment may be altered by medication and/or anesthesia, a responsible adult must drive you home from the hospital. ? If you have received medication for pain or sedation while under our care, you should not drive, operate machinery, drink alcohol, or sign any legal documents for 24 hours.?? You should have someone with you at home tonight. ? Remain at home the day of discharge.?? You may be up and about unless otherwise instructed by your physician. ? You may resume your daily prescription medication schedule.?? Any depressant medication should be avoided for 24 hours unless otherwise instructed by your surgeon or anesthesiologist. ? Call your physician for a follow-up appointment.? If you experience unusual or severe pain not relied by your pain medication, excessive bleedingor drainage, persistent nausea and vomiting, excessive swelling or redness, foul odor from incisionsite or fever over 100.6F, you need to call your physician. ? A follow-up phone call by a nurse will be made the day after your procedure.?? If you have stayed with us over night, you will not be receiving a follow-up phone call. ? Nausea and vomiting are a common side effect of prescription pain medication.?? We recommend that pills are not taken on an empty stomach.?? While taking any prescription pain medication you should not drive or drink alcohol. ? * Aurora Davalos RN: PERFORM Event Display: Patient Education Leaflets Authored Date: [id number] NSAID Analgesic Schedule ?? 604 NSAID???s Analgesic Schedule ?? Pain is the primary source of illness following your procedure and can include dehydration, difficulty and painful swallowing, and weight loss. These symptoms can lead to increased post-operative visits and hospital readmission. The best way to control pain is to take pain medications regularly. Your doctor has recommended both Ibuprofen and Acetaminophen (generic/store brands are okay, too). These can be picked up over the counter at your pharmacy of choice. Follow the instructions on the bottle to determine the proper dosage to give. The simplest way to take these medications it to rotate the two at 3-hour intervals. Here is a sample diagram. The time you take your medications may vary from this example. Do not give Ibuprofen more than every 6 hours or Acetaminophen every 4 hours. Do not give Acetaminophen if your doctor has given you a prescription that contains Acetaminophen. ? Patient Care team information Care Team Personnel Name: Feng MALDONADO, Nikhil Position: Reference Physician Member Role: PCP Address: [address] [place] [address]- Telecom: Care Team Related Persons Name: JEZBERKLEY Name: KEDAR VILCHIS Name: HELEN ANDRADE Insurance Providers Guarantor name: [facility] Health Plan Information #: 1 Payer: [employer] Member Number: [id number] Policy Number: NA Group Number: [facility] Health Plan Information #: 2 Payer: [employer] Member Number: [id number] Policy Number: NA Group Number: NA
[2024-07-15 08:47] LABS: MANUAL DIFF FLAG NO
[2024-07-15 09:12] LABS: Basophils Percent Auto 0.3 % (0-2); Eosinophils Absolute Auto 0.1 X10*3/uL (0.0-0.4); Eosinophils Percent Auto 1.2 % (0-4); Hematocrit 34.5 % (37.0-47.0); Hemoglobin 11.4 g/dl (12.0-16.0); Imm Gran Abs Auto 0.02 X10*3/uL (0.00-0.03); Imm Gran Pct Auto 0.3 % (0.0-0.4); Lymphocytes Absolute Auto 1.5 X10*3/uL (1.2-4.9); Lymphocytes Percent Auto 23.9 % (20-40); Mean Corpuscular Hemoglobin 29.3 pg (27.0-33.0); Mean Corpuscular Volume 88.7 fL (80.0-98.0); Mean Platelet Volume 9.8 fL (9.4-12.3); Monocytes Absolute Auto 0.4 X10*3/uL (0.1-1.2); Monocytes Percent Auto 7.1 % (2-11); Neutrophils Absolute Auto 4.1 x10*3/uL (2.0-8.3); Neutrophils Percent Auto 67.2 % (45-73); Platelet Count 356 X10*3/uL (160-400); Red Blood Count 3.89 X10*6/uL (4.20-5.50); Red Cell Distribution Width 12.3 % (11.0-16.0); White Blood Count 6.1 X10*3/uL (4.8-10.8)
[2024-07-15 09:21] LABS: Estimated Average Glucose 97 mg/dL; Hemoglobin A1C 92.1634 umol/L; Total Hemoglobin (HGBA1C) 2942.5016 umol/L
[2024-07-15 10:01] LABS: Alanine Aminotransferase 26 U/L (0-31); Albumin Level 4.2 g/dL (3.5-5.0); Alkaline Phosphatase 59 U/L (39-117); Anion Gap 9 (12-20); Aspartate Amino Transferase 25 U/L (5-31); Bilirubin Total 0.4 mg/dL (0.0-1.0); Blood Urea Nitrogen 13 mg/dL (9-16); C Reactive Protein 0.38 mg/dL (< or = 0.50); Calcium 8.8 mg/dL (8.4-10.2); Carbon Dioxide 27 mmol/L (22-29); Chloride 110 mmol/L (96-108); Cholesterol 123 mg/dL (<200); Estimated Glomerular Filt Rate > 60; Glucose Random 87 mg/dL (60-115); HDL Cholesterol 50 mg/dL (>40); Iron 51 mcg/dL (30-160); LDL Cholesterol Calculated 67 mg/dL (<100); Percent Iron Saturation 19 % (15-50); Sodium 142 mmol/L (135-145); Total Iron Binding Capacity 270 mcg/dL (228-428); Total Protein 7.3 g/dL (6.5-8.0); Triglycerides 30 mg/dL (<150); Unsaturated Iron Binding 219 ug/dL
[2024-07-15 10:19] LABS: Ferritin 34 ng/mL (10-122); Insulin 6 uU/mL (2-29); TSH reflex Free T4 0.65 uIU/mL (0.32-4.0); Vitamin D 25-OH Total 24.9 ng/mL (>30)
[2024-07-15 10:22] LABS: Folate 9.6 ng/mL (> or = 4.0); Vitamin B12 389 pg/mL (200-900)
[2024-07-17 12:59] LABS: Zinc 61 mcg/dL (60-130)
[2024-07-18 18:03] LABS: Vitamin A 45 mcg/dL (38-98)
[2024-07-20 11:38] LABS: Vitamin B1 10 nmol/L (8-30)
== END 2024-07-15 08:34 | disposition home or self-care (01) ==
LOC: HO.LAB 08:33
PROVIDERS: PCP Internal Medicine; Visit Provider Physician Assistant Surgical
DX: Z00.01 Encounter for general adult medical examination with abnormal findings (principal); G44.89 Other headache syndrome; L65.9 Nonscarring hair loss, unspecified; D50.0 Iron deficiency anemia secondary to blood loss (chronic); F41.1 Generalized anxiety disorder; Z98.86 Personal history of breast implant removal; Z98.84 Bariatric surgery status
CPT/HCPCS: 36415; 80053; 80061; 82306; 82607; 82728; 82746; 83036; 83525; 83540; 84425; 84443; 84590; 84630; 85025; 86140; 96127; 99212; 99395

== ENCOUNTER 2024-07-15 12:15 | Outpatient (AMB) | payer OTHER, SELFPAY ==
[2024-07-15 12:18] VITALS: BP 128/78; PULSE 86; O2SAT 100; BMI 33.4
--- NOTE | 2024-07-15 12:18 | A.OFFPC_ITS ---
Vital Signs 07/15/24 12:18 Height 5 ft 3 in Weight 188 lb 6 oz BMI 33.4 BP 128/78 Blood Pressure Location Lt brachial Position Sitting Pulse 86 Pulse Source Pulse Oximeter Pulse Oximetry (%) 100 Oxygen Delivery Method Room Air Intake Visit Reasons: Physical exam Allergies No Known Allergies Allergy (Verified 07/15/24 12:19) Medication List - Last Reconciled 07/15/24 by Nikhil Toney MD amitriptyline 25 mg PO BEDTIME 90 days cyclobenzaprine 10 mg PO BEDTIME 30 days ibuprofen 400 mg PO BID PRN 30 days levonorgestrel (Plan B One-Step) 1.5 mg PO ONCE loperamide (Anti-Diarrheal (loperamide)) 2 mg PO QID PRN ondansetron 4 mg PO Q8-12H PRN spironolactone 50 mg PO BID sumatriptan succinate 50 mg PO ONCE PRN 30 days Tobacco use date assessed: 07/15/24 Dental Screening Dental Screen Date: 07/15/24 Did you have a dental visit in the last 12 months?: Yes Did you have a dental problem in the last 6 months where you did not have access to dental care?: No Was dental information given to patient?: Patient has dentist HPI Physical exam HPI Details Physical exam appointment The patient is a 28-year-old female - Noted to have iron deficiency anemia; recent labs show hemoglobin of 11.4 g/dL. Patient experiences significant hair loss, which may be associated with the low iron levels. No current iron supplementation. - Acne management includes spironolacton e; through Dermatology. - Migraine management involves amitripty line for prophylaxis and sumatriptan with ibuprofen for acute episodes. Through PCP office - Vitamin D deficiency was indicated in lab results; supplementation recommended. - Pap smear in 2020; concerns regarding cervical cancer due to family history. Patient advised to schedule follow-up. With OBGYN - history of gastric sleeve surgery, sti ll struggling with a weight loss Health Maintenance - Multivitamin with iron recommended due to low iron and vitamin D levels. Also have low B12 level - Discussion on the need for regular exe rcise and weight management; BMI is 33.4. - Recommendation for a follow-up Pap sme ar due to family history of cervical cancer; past Pap in July 2020. 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 - Vitamin D deficient; level in 30s Patient Instructions - Start a multivitamin daily with additi onal iron for anemia. - Take vitamin D supplements as levels a re low. - Follow a healthy diet and exercise susie n to aid weight management. - Schedule a Pap smear due to family his tory of cervical cancer, considering it has been more than two years since the last examination. Review of Systems - Musculoskeletal: Denies swelling, repo rts occasional joint discomfort in fingers and side of the foot. - Reproductive: Reports IUD removal in t he last few months with no complications. - Neurological: Reports migraine episode s, uses sumatriptan and amitriptyline for management. - General: No fever no chills - Ear nose throat: No sore throat no hearing difficulty no ear pain - Cardiovascular: No syncope, no chest pain, no palpitations - Gastrointestinal: No nausea vomiting or diarrhea - Endocrine: No polyuria polydipsia no heat intolerance - Genitourinary: No dysuria - Skin: No new complaints Physical Exam General: Cooperative, healthy appearing, comfortable, no acute distress Orientation: Patient oriented x3 Limitations: None Head: Normal to inspection Ears: Within normal limit visually Nose: Normal external nose present Face and sinus: Normal facial exam Eyes: Appearance normal, extraocular movement intact pupils reactive Neck: Normal visual inspection and supple Respiratory: Normal respiratory effort and able to speak in complete sentences. Clear to auscultation, no stridor Cardiovascular: S1 and S2 GI: Normal to inspection. Soft to palpation and nontender Skin: Turgor normal, no acute findings Neuro: Patient oriented x3, motor sensory intact, balance intact, tandem pass Extremities: Normal to inspection, no swelling noted, [facility] Medical History Anxiety, generalized Acquired syphilis Anxiety and depression Back pain HSV-2 infection Intestinal malabsorption Surgical History Hx of section H/O gastric sleeve H/O abdominoplasty H/O breast implant S/P laparoscopic sleeve gastrectomy Obesity Family History Father Bipolar 1 disorder Parkinsons Dementia Mother HTN (hypertension) Son No problems noted. Daughter No problems noted. Brother No problems noted. Sister No problems noted. Unknown Ovarian cancer Social History Household Members: Children Both parents involved: Yes Caregiver staying overnight: No Housing: Apartment Alcohol intake: current Alcohol intake frequency: holidays/special occasions only Patient Tobacco Use Status: Never used Tobacco e-Cigarette/Vaping Use: Never Used Substance Use Type: Marijuana Special latonya needs: No Agree to transfusion: Yes service: No Current occupational status: employed Gender identity: Female Cognitive needs: No Hearing needs: No Vision needs: No Female Reproductive History Menstrual Age of Menarche: 11 Questionnaire PHQ-9 Over the last 2 weeks, how often have you been bothered by any of the following problems? 1. Little interest or pleasure in doing things: not at all 2. Feeling down, depressed, or hopeless: not at all 3. Trouble falling or staying asleep, or sleeping too much: not at all 4. Feeling tired or having little energy: several days 5. Poor appetite or overeating: not at all 6. Feeling bad about yourself - or that you are a failure or have let yourself or your family down: several days 7. Trouble concentrating on things, such as reading the newspaper or watching t elevision: more than half the days 8. Moving or speaking so slowly that other people could have noticed. Or the opposite - being so fidgety or restless that you have been moving around a lot more than usual: not at all 9. Thoughts that you would be better off or of hurting yourself in some way: not at all Total score: 4 Depression Screening Interpretation: Negative Depression Screening Done: Yes 41584 - PHQ-9 Billing: Yes Source: Developed by Drs. Caesar Corcoran, Dina Sanchez, Reese Lugo and colleagues, with an educational felix from [employer]. Thrive Questionnaire Date Thrive assessed: 07/15/24 I am a: Patient What is your living situation today?: I have a steady place to live Within the past 12 months, did the food you bought not last and you didn't have the money to get more?: Never true Within the past 12 months, did you worry whether your food would run out before you got money to buy more?: Never true Do you have trouble paying for medicines?: No Do you have trouble getting transportation to medical appointments?: No Do you have trouble paying your heating and electricity bill?: No Do you have trouble taking care of your child, family member or friend?: No Do you have trouble with day-to-day activities such as bathing, preparing meals, shopping, managing finances, etc.?: No Are you currently unemployed and looking for a job?: No Are you interested in more education?: No Please select the resources that you would like help with: None Currently or been in a relationship where the following occur: No concerns reported THRIVE Score: 0 AUDIT C Alcohol Use Questionnaire (AUDIT-C) 1. How often do you have a drink containing alcohol?: Monthly or less 2. How many drinks containing alcohol do you have on a typical day when you are drinking?: 1 or 2 3. How often do you have six or more drinks on one occasion?: Never Total Score: 1 Score Reviewed/Action Taken: Yes LAURA-7 AMB Questionnaire LAURA-7 Date LAURA - 7 assessed: 07/15/24 Feeling nervous, anxious, or on edge: 1 = Several days Not being able to stop or control worryin = Not at all Worrying too much about different things: 2 = More than half the days Trouble relaxin = More than half the days Being so restless that it is hard to sit still: 0 = Not at all Becoming easily annoyed or irritable: 0 = Not at all Feeling afraid as if something awful might happen: 0 = Not at all Total LAURA-7 score (0-4 normal; 5-9 mild; 10-14 moderate; 15-21 severe): 5 Source: Developed by Drs. Caesar Corcoran, Dina Sanchez, Reese Lugo and colleagues, with an educational felix from [employer]. LAURA-7 Assessment Billing LAURA-7 Assessment Tool: LAURA-7 Assessment 59007 Physical exam (Primary Care) Vital Signs: Last Vital Signs Pulse 86 07/15/24 12:18 BP 128/78 07/15/24 12:18 Pulse Ox 100 07/15/24 12:18 Oxygen Delivery Method Room Air 07/15/24 12:18 BMI result Body Mass Index 33.4 Tobacco/Smoking Status: Tobacco use Status Tobacco use date assessed 07/15/24 07/15/24 12:22 Patient Tobacco Use Status Never used Tobacco 07/15/24 12:22 e-Cigarette/Vaping Use Never Used 07/15/24 12:22 PHQ-9: PHQ-9 Score PHQ-9: Total score 4 07/15/24 12:27 Depression Screening Interpretation: Negative Thrive Assessment: Date of Thrive Assessment Date Thrive assessed 07/15/24 07/15/24 12:27 Currently or been in a relationship where the following occur: No concerns reported Coding Level of Care Code Est Pt Level 3 (03417) Est Pt Prev Care 18-39y(67352) Diagnoses Encounter for general adult medical examination with abnormal findings Z00.01 BMI 33.0-33.9,adult Z68.33 Headache syndrome G44.89 Hair loss L65.9 Iron deficiency anemia due to chronic blood loss D50.0 Anemia type: iron deficiency Iron deficiency anemia type: chronic blood loss Anxiety, generalized F41.1 History of breast implant removal Z98.86 Additional Codes LAURA-7 Assessment Billing - LAURA-7 Assessment Tool: LAURA-7 Assessment 82915 ([id number]) PHQ-9 - 38586 - PHQ-9 Billing: Yes ([id number]) Assessment & Plan Assessment & Plan (1) Encounter for general adult medical examination with abnormal findings: Code(s): Z00.01 - Encounter for general adult medical examination with abnormal findings Category: Medical (2) BMI 33.0-33.9,adult: Code(s): Z68.33 - Body mass index [BMI] 33.0-33.9, adult Category: Medical (3) Headache syndrome: Code(s): G44.89 - Other headache syndrome Category: Medical (4) Hair loss: Code(s): L65.9 - Nonscarring hair loss, unspecified Category: Medical (5) Anemia: Code(s): D64.9 - Anemia, unspecified Category: Medical Qualifiers: Anemia type: iron deficiency Iron deficiency anemia type: chronic blood loss Qualified Code(s): D50.0 - Iron deficiency anemia secondary to blood loss (chronic) (6) Anxiety, generalized: Code(s): F41.1 - Generalized anxiety disorder Category: Medical (7) History of breast implant removal: Code(s): Z98.86 - Personal history of breast implant removal Category: Medical Plan Physical exam appointment The patient is a 28-year-old female - Noted to have iron deficiency anemia; recent labs show hemoglobin of 11.4 g/dL. Patient experiences significant hair loss, which may be associated with the low iron levels. No current iron supplementation. - Acne management includes spironolactone; through Dermatology. - Migraine management involves amitriptyline for prophylaxis and sumatriptan with ibuprofen for acute episodes. Through PCP office - Vitamin D deficiency was indicated in lab results; supplementation recommended. - Pap smear in 2020; concerns regarding cervical cancer due to family history. Patient advised to schedule follow-up. With OBGYN - history of gastric sleeve surgery, still struggling with a weight loss Health Maintenance - Multivitamin with iron recommended due to low iron and vitamin D levels. Also have low B12 level - Discussion on the need for regular exercise and weight management; BMI is 33.4. - Recommendation for a follow-up Pap smear due to family history of cervical cancer; past Pap in July 2020. 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 - Vitamin D deficient; level in 30s Patient Instructions - Start a multivitamin daily with additional iron for anemia. - Take vitamin D supplements as levels are low. - Follow a healthy diet and exercise plan to aid weight management. - Schedule a Pap smear due to family history of cervical cancer, considering it has been more than two years since the last examination. Follow-up six-month physical exam 1 year Medications: Discontinued escitalopram oxalate (Lexapro) Discontinued Reason: Doctor's Order 10 mg PO DAILY 90 tabs 0RF cyclobenzaprine Discontinued Reason: Doctor's Order 10 mg PO BEDTIME 30 days 30 tabs 0RF M54.9 - Dorsalgia, unspecified ibuprofen Discontinued Reason: Doctor's Order 400 mg PO BID 30 days PRN 60 tabs 0RF pain loperamide (Anti-Diarrheal (loperamide)) Discontinued Reason: Doctor's Order 2 mg PO QID PRN 20 caps 0RF loose stool ondansetron Discontinued Reason: Doctor's Order 4 mg PO Q8-12H PRN 14 tabs 0RF nausea and vomiting
== END 2024-07-15 12:51 | disposition home or self-care (01) ==
PROVIDERS: PCP Internal Medicine; Visit Provider Internal Medicine
DX: Z00.00 Encounter for general adult medical examination without abnormal findings (principal); G44.89 Other headache syndrome; Z68.33 Body mass index [BMI] 33.0-33.9, adult; L65.9 Nonscarring hair loss, unspecified; D50.0 Iron deficiency anemia secondary to blood loss (chronic); F41.1 Generalized anxiety disorder; Z98.86 Personal history of breast implant removal

== ENCOUNTER 2024-08-13 15:16 | Outpatient (AMB) | payer OTHER, SELFPAY ==
--- NOTE | 2024-08-13 15:16 | MHC.OFFVIS ---
Intake Visit Reasons: control follow up Allergies No Known Allergies Allergy (Verified 07/15/24 12:19) HPI Comments Details: The patient is scheduled a telehealth visit to discuss different options of control. Patient was diagnosed with migraine headaches is on amitriptyline and since then Mirena IUD was taken out and she did not have anymore headache [facility] Medical History Anxiety, generalized Acquired syphilis Anxiety and depression Back pain HSV-2 infection Intestinal malabsorption Surgical History Hx of section H/O gastric sleeve H/O abdominoplasty H/O breast implant S/P laparoscopic sleeve gastrectomy Obesity Family History Father Bipolar 1 disorder Parkinsons Dementia Mother HTN (hypertension) Son No problems noted. Daughter No problems noted. Brother No problems noted. Sister No problems noted. Unknown Ovarian cancer Social History Household Members: Children Both parents involved: Yes Caregiver staying overnight: No Housing: Apartment Alcohol intake: current Alcohol intake frequency: holidays/special occasions only Patient Tobacco Use Status: Never used Tobacco e-Cigarette/Vaping Use: Never Used Substance Use Type: Marijuana Special latonya needs: No Agree to transfusion: Yes service: No Current occupational status: employed Gender identity: Female Cognitive needs: No Hearing needs: No Vision needs: No Female Reproductive History Menstrual Age of Menarche: 11 Review of Systems Const All systems reviewed & are unremarkable except as noted in HPI and below Reports as per HPI and Reports no additional complaints GI Reports no additional complaints Reports no additional complaints Telehealth Telehealth Telehealth Platform: Telephone Location of provider rendering services: practice address Location of patient: address on file Patient Identification confirmed using: Name, : Yes Telehealth method: video Patient verbally consented to treatment: Yes Patient verbally consented to billing insurance company: Yes Patient informed of any privacy concerns related to visit: Yes Minutes spent on Phone/Video with Pt.: 11 Assessment & Plan Assessment & Plan (1) Family planning: Code(s): Z30.09 - Encounter for other general counseling and advice on contraception Category: Social Hx Plan: Discussed with the patient the different options of control including control pills/Nuvaring, DMPA, different types of IUD ?s, sterilization. All the pros, cons, risks and benefits of each were discussed with the patient. The patient decided to go ahead with an IUD, so a more detailed discussion was carried on including types (Progesterone, Copper), mechanism of action, risks (infection, uterine perforation, failure with ectopic , septic AB, dysmenorrhea with Paraguard, others) benefits (efficient contraceptive method, hypo menorrhea with Progesterone IUD, others), the patient decided to proceed with ParaGard IUD. GC/CG will be taken during next visit and the patient was asked to call day one of next cycle for ParaGard IUD insertion. I spent a total of 20 minutes reviewing the chart, talking to the patient via video and documenting in the medical record. Coding Level of Care Code Tele Est Pt Level 3 (30072) Diagnoses Family planning Z30.09
--- OUTSIDE RECORDS SUMMARY | 2024-08-13 15:18 | XMS_ITS | Continuity of Care Document ---
Author Organization [facility] Address [address] [place] [id number]- Care Team Providers Care Chemical Dependency Therapist Name Role Phone Feng MALDONADO, Asma Primary Care Physician [phone] Encounter [facility] Date(s): 07/11/24 - 07/18/24 [facility] [address] [address] Attending Physician: Rocio Singleton Encounter Type: Office Visit Allergies, Adverse Reactions, Alerts No Known Allergies [...] Measles/Mumps/Rubella Virus Vaccine 01/07/16 Recor ded Medications albuterol CFC free 90 mcg/inh inhalation aerosol [...] 07/03/24 Status: Ordered Repeat number: 1 ibuprofen 400 mg oral tablet TAKE 1 TABLET BY MOUTH 2 TIMES A DAY NEEDED FOR PAIN FOR 30 DAYS Start Date: 07/03/24 Status: Ordered Repeat number: 1 QUEtiapine 50 mg oral [...] Active KELLEY (obstructive sleep apnea) Confirmed Active 2017 Vital Signs Most recent to oldest [Reference Range]: 1 Height 160 cm (07/11/24 9:30 AM) Weight 83.5 kg (07/11/24 9:30 AM) Body Mass Index [18.5-24.99 kg/m2] 32.62 kg/m2 *>HHI* (07/11/24 9:30 AM) Dry Weight 83.1 kg (07/11/24 9:30 AM) Weight Obtained Via Patient/family state d (07/11/24 9:30 AM) Dry Weight Obtained Via Patient/family s tated (07/11/24 9:30 AM) Social History Social History Type Response Smoking Status Never (less than 100 in lifetime) entered on: 06/01/21 Sex Sex Representation Female (finding) Patient Care team information Care Team Personnel Name: Feng MALDONADO, Nikhil Position: Reference Physician Member Role: PCP Address: [address] [place] [address] Telecom: Care Team Related Persons Name: BERKLEY STORY Name: KEDAR VILCHIS Name: HELEN ANDRADE Insurance Providers Guarantor name: XIMENA JEZ Health Plan Information #: 1 Payer: [employer] Member Number: [id number] Policy Number: NA Group Number: NA Health Plan Information #: 2 Payer: [employer] Member Number: [id number] Policy Number: NA Group Number: NA
--- OUTSIDE RECORDS SUMMARY | 2024-08-13 15:18 | XMS_ITS | Continuity of Care Document ---
Author Organization [facility] Address [address] [place] [id number] Care Team Providers Care Agent Contract Clerk Name Role Phone Feng MALDONADO, Asma Primary Care Physician [phone] [place] [facility] [place]s): 07/10/24 - 08/09/24 [facility] [address] [id number] Encounter Type: Triage Allergies, Adverse Reactions, Alerts [...] Confirmed 01/06/20 Active H/O syphilis 1 Confirmed 2017 Active Morbid obesity with BMI of 40.0-44.9, adult Confirmed Active Obese class I Confirmed Active KELLEY (obstructive sleep apnea) Confirmed Active 2017 Social History Social History Type Response Smoking Status Never (less than 100 in lifetime) entered on: 06/01/21 Sex Sex Representation Female (finding) Patient Care team information Care Team Personnel Name: Feng MALDONADO, Nikhil Position: Reference Physician Member Role: PCP Address: [address] [id number] Telecom: Care Team Related Persons Name: BERKLEY STORY Name: KEDAR VILCHIS Name: HELEN ANDRADE Insurance Providers Guarantor name: [facility] Plan Information #: 1 Payer: [employer] Member Number: NA Policy Number: NA Group Number: NA
== END 2024-08-13 15:29 | disposition home or self-care (01) ==
LOC: HO.HWS 15:16
PROVIDERS: PCP Internal Medicine; Visit Provider Obstetrics & Gynecology
DX: Z30.09 Encounter for other general counseling and advice on contraception (principal)
CPT/HCPCS: 99213

== ENCOUNTER 2024-09-23 12:30 | Outpatient (AMB) | payer OTHER, SELFPAY ==
--- NOTE | 2024-09-23 12:41 | MHC.OFFVIS ---
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 She does not have any known cardiac issues like coronary disease or cardiomyopathy or in fact anything cardiac related. She states that she gets chest pains somewhat randomly. Can happen any time with or without exertion. It seems that the history of breast implant that has been removed. She also gets sensations of heart fluttering at different times like walking extra. Hence she is here to get checked out. [facility] Medical History Anxiety, generalized Acquired syphilis Anxiety and depression Back pain HSV-2 infection Intestinal malabsorption Surgical History Hx of section H/O gastric sleeve H/O abdominoplasty H/O breast implant S/P laparoscopic sleeve gastrectomy Obesity Family History Father Bipolar 1 disorder Parkinsons Dementia Mother HTN (hypertension) Son No problems noted. Daughter No problems noted. Brother No problems noted. Sister No problems noted. Unknown Ovarian cancer Social History Household Members: Children Both parents involved: Yes Caregiver staying overnight: No Housing: Apartment Alcohol intake: current Alcohol intake frequency: holidays/special occasions only Patient Tobacco Use Status: Never used Tobacco e-Cigarette/Vaping Use: Never Used Substance Use Type: Marijuana Special latonya needs: No Agree to transfusion: Yes service: No Current occupational status: employed Gender identity: Female Cognitive needs: No Hearing needs: No Vision needs: No Female Reproductive History Menstrual Age of Menarche: 11 Review of Systems Const Reports headache(s) and Denies weakness ENT Denies dizziness and Reports headache(s) Card Denies chest pain, Reports chest pain at rest, Reports chest pain with activity, Denies syncope, Denies rapid heart rate, Denies pedal edema, Denies edema, Denies leg edema, Denies lightheadedness, Reports palpitations, Denies dyspnea, Denies dyspnea on exertion and Denies orthopnea Resp Denies cough, Denies dyspnea and Denies dyspnea on exertion GI Denies hematochezia and Denies change in stool character Musc Denies abnormal gait, Denies muscle cramps, Denies muscle weakness, Denies numbness, Denies radiating pain into limb and Denies tingling Neuro Denies abnormal gait, Denies dizziness, Denies syncope, Reports headache(s), Denies numbness, Denies tingling and Denies weakness Endo Reports palpitations Physical Exam Vital Signs: Last Vital Signs Pulse 77 09/23/24 12:42 BP 102/78 09/23/24 12:42 BMI result Body Mass Index 33.1 Const General: comfortable and no acute distress Orientation/consciousness: patient oriented x3 HEENT Other: Unremarkable Head: Yes normal to inspection Neck Neck: Yes normal visual inspection Chest Chest palpation & inspection: normal inspection of the chest Resp Auscultation: clear to auscultation bilaterally Cardio Palpation: normal PMI Heart sounds: S1 normal heart sound present, S2 normal heart sound present, no gallops, no murmurs and no rubs GI Palpation (GI): Soft to palpation Back/Spine/Pelvis Other: unremarkable Skin General skin exam: no rashes or lesions noted Neuro General: patient oriented x3 Extrem General: Yes normal to inspection Psych Mental Status: mental status grossly normal Office Procedures EKG Details: EKG with underlying sinus rhythm at 77/Min; RSR' pattern in V1; [place] [address]-[id number], Complete Assessment & Plan Assessment & Plan (1) Precordial chest pain: Code(s): R07.2 - Precordial pain Category: Medical Plan: Atypical sounding chest pain. Doubt cardiac etiology. Obtain echocardiogram for any cardiomyopathy/pericardial effusion. (2) Palpitation: Code(s): R00.2 - Palpitations Category: Medical Plan: Could be supraventricular/ventricular ectopy versus sinus tachycardia. Obtain Holter monitor. Plan If the above testing is unremarkable, then reassurance only. Orders: Orders ECG 7 day holter monitor Today R00.2 - Palpitations CA echo transthoracic complete Today R07.2 - Precordial pain Coding Level of Care Code New Pt Level 3 (06494) Diagnoses Precordial chest pain R07.2 Palpitation R00.2 CPT Codes EKG - CPT: 54460-[id number], Complete ([id number])
[2024-09-23 12:42] VITALS: BP 102/78; PULSE 77; BMI 33.1
== END 2024-09-23 13:05 | disposition home or self-care (01) ==
PROVIDERS: PCP Internal Medicine; Visit Provider Internal Medicine
DX: R07.2 Precordial pain (principal); R00.2 Palpitations
CPT/HCPCS: 93010; 99213

== ENCOUNTER → 2024-09-23 12:30 | Outpatient (BNVA) | payer OTHER, SELFPAY | PROVIDERS: PCP Internal Medicine; Visit Provider Internal Medicine | DX: R07.2 Precordial pain (principal); R00.2 Palpitations | CPT/HCPCS: 93005; 99212 ==

== ENCOUNTER 2024-10-06 11:50 | Outpatient (AMB) | payer OTHER, SELFPAY ==
--- NOTE | 2024-10-06 12:39 | MHC.OFFWIV ---
Intake Vital Signs 10/06/24 12:42 Weight 196 lb BP 116/70 Blood Pressure Location Rt brachial Position Sitting Pulse 49 L Pulse Source Pulse Oximeter Pulse Oximetry (%) 98 Oxygen Delivery Method Room Air Intake Visit Reasons: EP Back pain Intake Note: Patient here for lower back pain and radiates down the left leg. she states it initially happened over the weekend but felt a bit better this morning but came to work and had a difficult pt and felt the pain again. Patient Tobacco Use Status: Never used Tobacco Allergies No Known Allergies Allergy (Verified 10/06/24 12:52) Do you need a note to return to daycare/school/sports/work: Yes HPI HPI Comments History of Present Illness Details 29 y/o Female patient who presents to the walk in clinic with c/o lower back pain and radiates down the left leg. Reports that the pain started Sunday. Denies any injury or trauma. Reports that she sneezed so Hard and felt a POP . She is worried that she might have Broken her Back. [facility], [facility] Medical History Anxiety, generalized Acquired syphilis Anxiety and depression Back pain HSV-2 infection Intestinal malabsorption Surgical History Hx of section H/O gastric sleeve H/O abdominoplasty H/O breast implant S/P laparoscopic sleeve gastrectomy Obesity Family History Father Bipolar 1 disorder Parkinsons Dementia Mother HTN (hypertension) Son No problems noted. Daughter No problems noted. Brother No problems noted. Sister No problems noted. Unknown Ovarian cancer Social History Household Members: Children Both parents involved: Yes Caregiver staying overnight: No Housing: Apartment Alcohol intake: current Alcohol intake frequency: holidays/special occasions only Patient Tobacco Use Status: Never used Tobacco e-Cigarette/Vaping Use: Never Used Substance Use Type: Marijuana Special latonya needs: No Agree to transfusion: Yes service: No Current occupational status: employed Gender identity: Female Cognitive needs: No Hearing needs: No Vision needs: No Female Reproductive History Menstrual Age of Menarche: 11 Review of Systems Const All systems reviewed & are unremarkable except as noted in HPI and below Physical Exam Vital Signs: Last Vital Signs Pulse 49 L 10/06/24 12:42 BP 116/70 10/06/24 12:42 Pulse Ox 98 10/06/24 12:42 Oxygen Delivery Method Room Air 10/06/24 12:42 Const General: no acute distress Nutritional Appearance: overweight Orientation/consciousness: patient oriented x3 Back/Spine/Pelvis Back: back tenderness Thoracic/Lumbar Spine: thoraco-lumbar ROM limited with rotation to the right and with rotation to the left and lumbar spinal tenderness at L4 and at L5 Neuro General: patient oriented x3 Psych Speech and movement: Normal speech and movement present Assessment & Plan Assessment & Plan (1) Lumbar paraspinal muscle spasm: Code(s): M62.830 - Muscle spasm of back Plan: Ordered Xray of Back. Acetaminophen for pain relief Ice/Hot Rest Orders: Orders XR lumbar spine 2-3V Today M62.830 - Muscle spasm of back Medications: New acetaminophen 1,000 mg (2 x 500 mg) PO Q6H PRN 30 caps 0RF pain M62.830 - Muscle spasm of back cyclobenzaprine 10 mg PO BID 20 tabs 0RF M62.830 - Muscle spasm of back lidocaine 5% leave on most painful area for up to 12 hrs 1 patch topical DAILY 30 ea 0RF M62.830 - Muscle spasm of back Coding Level of Care Code Est Pt Level 4 (35046) Diagnoses Lumbar paraspinal muscle spasm M62.830 Time Spent (min) 20
[2024-10-06 12:42] VITALS: BP 116/70; PULSE 49; O2SAT 98
== END 2024-10-06 13:42 | disposition home or self-care (01) ==
PROVIDERS: PCP Internal Medicine; Visit Provider Nurse Practitioner Family
DX: M62.830 Muscle spasm of back (principal)

== ENCOUNTER 2024-10-06 11:50 | Outpatient (REF) | payer OTHER, SELFPAY ==
--- NOTE | ~2024-10-06 | XR_ITS ---
EXAMINATION: XR LUMBOSACRAL SPINE CLINICAL INFORMATION: M62.830 - Muscle spasm of back COMPARISON: None available. TECHNIQUE: Three views of the lumbosacral spine. FINDINGS: There is normal lumbar lordosis. The vertebral heights, alignment and disc heights are normal. No visible acute fracture, dislocation or lytic process seen. The paravertebral soft tissues are normal. There are surgical israel in the left upper quadrant likely from gastric reduction surgery. There is moderate stool in colon. XR/XR lumbar spine 2-3V IMPRESSION: Unremarkable lumbar spine exam. Electronically signed by: Warren Rondon MD 10/06/2024 04:59 PM EDT
== END 2024-10-06 11:51 | disposition home or self-care (01) ==
LOC: HO.HMGCX 11:50
PROVIDERS: PCP Internal Medicine; Visit Provider Nurse Practitioner Family
DX: M62.830 Muscle spasm of back (principal)
CPT/HCPCS: 72100; 99212

== ENCOUNTER → 2024-10-06 13:38 | Outpatient (BNV) | payer OTHER, SELFPAY | PROVIDERS: PCP Internal Medicine; Visit Provider Radiology Diagnostic Radiology | DX: M62.830 Muscle spasm of back (principal) | CPT/HCPCS: 72100 ==

== ENCOUNTER 2024-10-09 08:14 | Outpatient (AMB) | payer OTHER, SELFPAY ==
--- NOTE | 2024-10-09 08:21 | A.OFFPC_ITS ---
Intake Visit Reasons: Back pain/[id number] Allergies No Known Allergies Allergy (Verified 10/09/24 08:26) Medication List - Last Reconciled 10/09/24 by Nikhil Toney MD acetaminophen 1,000 mg (2 x 500 mg) PO Q6H PRN amitriptyline 25 mg PO BEDTIME 90 days cholecalciferol (vitamin D3) 50 mcg PO DAILY cyclobenzaprine 10 mg PO BID lidocaine 5% 1 patch topical DAILY quetiapine ER 50 mg PO BEDTIME spironolactone 50 mg PO BID sumatriptan succinate 50 mg PO ONCE PRN 30 days Tobacco use date assessed: 10/09/24 Dental Screening Dental Screen Date: 10/09/24 Did you have a dental visit in the last 12 months?: Yes Did you have a dental problem in the last 6 months where you did not have access to dental care?: No Was dental information given to patient?: Patient has dentist HPI Back pain/[id number] HPI Details Patient is 29 years old female she sneezed 5 days ago and felt sever pain lower back which has not resolved since Pain is radiating to her left leg she was seen in walk in 2 days ago and was given RX for muscle relaxer which she is taking but its not helping she is also taking tylenl and lidocain patches no bowel or bladder problem pain gets worse if she is walking or lift her left leg I am adding diclofenic 75 bid with food she is to return in one week for follow up [facility] Medical History Anxiety, generalized Acquired syphilis Anxiety and depression Back pain HSV-2 infection Intestinal malabsorption Surgical History Hx of section H/O gastric sleeve H/O abdominoplasty H/O breast implant S/P laparoscopic sleeve gastrectomy Obesity Family History Father Bipolar 1 disorder Parkinsons Dementia Mother HTN (hypertension) Son No problems noted. Daughter No problems noted. Brother No problems noted. Sister No problems noted. Unknown Ovarian cancer Social History Household Members: Children Both parents involved: Yes Caregiver staying overnight: No Housing: Apartment Alcohol intake: current Alcohol intake frequency: holidays/special occasions only Patient Tobacco Use Status: Never used Tobacco e-Cigarette/Vaping Use: Never Used Substance Use Type: Marijuana Special latonya needs: No Agree to transfusion: Yes service: No Current occupational status: employed Gender identity: Female Cognitive needs: No Hearing needs: No Vision needs: No Female Reproductive History Menstrual Age of Menarche: 11 Questionnaire Thrive Questionnaire Date Thrive assessed: 07/15/24 AUDIT C Alcohol Use Questionnaire (AUDIT-C) 1. How often do you have a drink containing alcohol?: Monthly or less 2. How many drinks containing alcohol do you have on a typical day when you are drinking?: 1 or 2 3. How often do you have six or more drinks on one occasion?: Never Total Score: 1 Score Reviewed/Action Taken: Yes LAURA-7 AMB Questionnaire LAURA-7 Date LAURA - 7 assessed: 07/15/24 Source: Developed by Drs. Caesar Corcoran, Dina Sanchez, Reese Lugo and colleagues, with an educational felix from [employer]. Review of Systems Const Denies chills and Denies fever(s) ENT Denies epistaxis and Denies nasal discharge Card Denies chest pain Resp Denies chest congestion, Denies cough and Denies hemoptysis GI Denies diarrhea and Denies nausea Skin/Breast Denies rash Neuro Reports no additional complaints Psych Reports no additional complaints Endo Reports no additional complaints Physical exam (Primary Care) Tobacco/Smoking Status: Tobacco use Status Tobacco use date assessed 10/09/24 10/09/24 08:27 Patient Tobacco Use Status Never used Tobacco 10/09/24 08:21 e-Cigarette/Vaping Use Never Used 10/09/24 08:21 Thrive Assessment: Date of Thrive Assessment Date Thrive assessed 07/15/24 10/09/24 08:21 Telehealth Telehealth Telehealth Platform: [employer] Location of provider rendering services: practice address Location of patient: address on file Patient Identification confirmed using: Name, : Yes Telehealth method: voice only Patient verbally consented to treatment: Yes Patient verbally consented to billing insurance company: Yes Patient informed of any privacy concerns related to visit: Yes Minutes spent on Phone/Video with Pt.: 13 Coding Level of Care Code Tele Est Pt Level 3 (57590) Diagnoses Left lumbar radiculitis M54.16 Assessment & Plan Assessment & Plan (1) Left lumbar radiculitis: Code(s): M54.16 - Radiculopathy, lumbar region Category: Medical Plan Patient is 29 years old female she sneezed 5 days ago and felt sever pain lower back which has not resolved since Pain is radiating to her left leg she was seen in walk in 2 days ago and was given RX for muscle relaxer which she is taking but its not helping she is also taking tylenl and lidocain patches no bowel or bladder problem pain gets worse if she is walking or lift her left leg I am adding diclofenic 75 bid with food she is to return in one week for follow up Medications: New diclofenac sodium take it with food, DONT TAKE IF YOU ARE 75 mg PO BID 20 tabs 0RF pain 10 days
== END 2024-10-09 09:46 | disposition home or self-care (01) ==
LOC: HO.HMCC 08:14
PROVIDERS: PCP Internal Medicine; Visit Provider Internal Medicine
DX: M54.16 Radiculopathy, lumbar region (principal)

== ENCOUNTER → 2024-10-09 08:14 | Outpatient (BNVA) | payer OTHER, SELFPAY | PROVIDERS: PCP Internal Medicine; Visit Provider Internal Medicine ==

== ENCOUNTER → 2024-10-16 10:57 | Outpatient (REF) | payer OTHER, SELFPAY ==
--- NOTE | 2024-10-16 11:00 | CA_ITS ---
Transthoracic Echocardiogram Patient (Last, First, Middle): Cecilia Rivas, Gender: Female Date of : 1995 Age: 29 Procedure Date: 10/16/2024 Procedure Type: Transthoracic Echocardiogram Location: OP Height: 160.02 cm Weight: 87.09 kg BSA: 1.90 m2 Heart Rate: 66 bpm BP: 107 / 60 mmHg Tank Car Loader: LEIDY Referring MD: Jose Pascual MD Symptoms: R07.2 - Precordial pain Study Quality: Adequate w contrast ECG Rhythm: Sinus Conclusions: - Mildly increased left ventricular cavity size. - The left ventricular systolic function is normal. The visually estimated ejection fraction is between 55-60%. - No obvious valvular pathology seen on this study. Findings Procedure Information Contrast agent, definity, is being given per protocol without apparent complications. Left Ventricle Mildly increased left ventricular cavity size. There is normal left ventricular wall thickness. The left ventricular systolic function is normal. The visually estimated ejection fraction is between 55-60%. There is no evidence of regional wall motion abnormalities. Diastolic function is normal for age. Right Ventricle Normal right ventricular cavity size and systolic function. Atria Both atria are normal in size. Aortic Valve There is a normal trileaflet aortic valve. There is no aortic valve stenosis. There is no aortic valve regurgitation. Mitral Valve The mitral valve appears normal. There is trace mitral valve regurgitation. There is no mitral valve stenosis. Pulmonic Valve The pulmonic valve is likely normal. Tricuspid Valve Normal tricuspid valve structure. There is no tricuspid valve regurgitation. There is no evidence of pulmonary hypertension. Great Vessels The asc aorta and aortic arch are normal in size. Venous The inferior vena cava is normal in size and collapses greater than 50% with inspiration. Pericardium/Pleural There is no evidence of pericardial effusion. Prior Study Comparison Changes noted compared to prior study dated: 04/27/2020. LVEDD higher than prior study. Recommendations, Care & Conclusions No obvious valvular pathology seen on this study. Measurements 2D Linear Measurements IVSd: 0.64 0.6-0.9/0.6-1.0 cm LVIDd: 5.55 3.9-5.3/4.2-5.9 cm LVIDd Index: 2.92 2.4-3.2/2.2-3.1 cm/m2 LVIDs: 3.32 2.0-3.6 cm LVPWd: 0.71 0.7-1.1 cm LA Diam: 3.50 2.7-3.8/3.0-4.0 cm LAIDs Index: 1.84 1.5-2.3 cm/m2 LV Mass: 164.15 67-162/88-224 g LV Mass Index: 86.40 43-95/49-115 g/m2 LVOT Diam: 2.00 3.0+(-)1.3 cm 2D Systolic Function EF 4C: 53.50 >55% EF 2C: 61.70 >55% EF BiP: 60.10 >55% Mitral Valve MV Pk E: 0.75 MV PK A: 0.46 MV Decel Time: 271.00 E/A: 1.60 E'Lateral: 15.10 E'Medial: 10.70 E/E' Med: 7.00 E/E' Lat: 5.00 PHT: 79.00 MVA PHT: 2.78 Decel [place]: 2.77 Aortic Valve AoV Pk [place]: 1.23 AoV Mn [place]: 0.90 AoV VTI: 0.28 AoV Pk Grad: 6.00 Aov Mn Grad: 4.00 YAIMA Cont.VTI: 2.31 LVOT LVOT Pk [place]: 0.91 LVOT Mn [place]: 0.68 LVOT VTI: 0.20 LVOT Pk Grad: 3.00 LVOT Mn Grad: 2.00 LVOT Diam: 2.00 LVOT Area: 3.14 Diastolic Function MV Pk E: 0.75 MV Pk A: 0.46 E/A: 1.60 E'Medial: 10.70 E/E' Med: 7.00 E' Laterial: 15.10 E/E' Lat: 5.00 Right Ventricle TAPSE (mm): 20.30 TVS' [place]: 11.50 Tricuspid Valve RA Press: 3.00 Great Vessels Aorta Sinus of Valsalva: 3.10 2.0-3.5 cm Ao Asc: 2.70 2.1-3.4 cm Ao Arch: 2.10 Pulmonary Valve PV Pk [place]: 0.96 Peak PV Grad: 4.00 Updated in Other Vendor System with Status of Final Jose Pascual MD electronically signed on 10/17/2024 6:39:08 PM with status of Final
== END ==
LOC: HO.CARD 10:57
PROVIDERS: PCP Internal Medicine; Visit Provider Internal Medicine
DX: R00.2 Palpitations (principal); R07.2 Precordial pain
CPT/HCPCS: 93242; 93306; Q9957

== ENCOUNTER → 2024-10-16 11:00 | Outpatient (BNV) | payer OTHER, SELFPAY | PROVIDERS: PCP Internal Medicine; Visit Provider Internal Medicine | DX: I34.0 Nonrheumatic mitral (valve) insufficiency (principal) | CPT/HCPCS: 93306 ==

== ENCOUNTER 2024-10-17 | Outpatient (REF) | payer OTHER, SELFPAY | END 2024-10-17 00:01 | disposition home or self-care (01) | LOC: CF | PROVIDERS: PCP Internal Medicine; Visit Provider Internal Medicine | DX: M54.16 Radiculopathy, lumbar region (principal) | CPT/HCPCS: 96127 ==

== ENCOUNTER 2024-10-17 12:12 | Outpatient (AMB) | payer OTHER, SELFPAY ==
--- NOTE | 2024-10-17 12:13 | A.OFFPC_ITS ---
Vital Signs 10/17/24 12:14 Height 5 ft 3 in Weight 193 lb 2 oz BMI 34.2 BP 124/82 Blood Pressure Location Lt brachial Position Sitting Pulse 94 Pulse Source Pulse Oximeter Temp 98.5 F Temp Source Oral Pulse Oximetry (%) 98 Oxygen Delivery Method Room Air Intake Visit Reasons: 1 WK F/U Allergies No Known Allergies Allergy (Verified 10/17/24 12:17) Medication List - Last Reconciled 10/17/24 by Nikhil Toney MD acetaminophen 1,000 mg (2 x 500 mg) PO Q6H PRN amitriptyline 25 mg PO BEDTIME 90 days cholecalciferol (vitamin D3) 50 mcg PO DAILY cyclobenzaprine 10 mg PO BID diclofenac sodium 75 mg PO BID 10 days lidocaine 5% 1 patch topical DAILY quetiapine ER 50 mg PO BEDTIME spironolactone 50 mg PO BID sumatriptan succinate 50 mg PO ONCE PRN 30 days Tobacco use date assessed: 10/09/24 Dental Screening Dental Screen Date: 10/09/24 Did you have a dental visit in the last 12 months?: Yes Did you have a dental problem in the last 6 months where you did not have access to dental care?: No Was dental information given to patient?: Patient has dentist HPI 1 WK F/U HPI Details History - The patient is a 29-year-old female pr esenting for follow-up on left SI joint pain patient was evaluated a week ago - Noticed improvement in pain overall Patient was treated with muscle relaxer and diclofenac 75 mg b.i.d. - Currently awaiting the results of an e chocardiogram which was conducted yesterday and she has a Holter monitor on right now Problem List - Joint inflammation SI left - Awaiting echocardiogram results Patient Instructions - Continue current activities but exerci se caution with movements that involve bending or twisting. - Avoid overexertion or exercises that c ould strain the joints. - Wait for the echocardiogram results be fore resuming gym activities. Review of Systems - General: No fever no chills - Neurological: No headaches no dizziness - Ear nose throat: No sore throat no hearing difficulty no ear pain - Cardiovascular: No syncope, no chest pain, no palpitations - Gastrointestinal: No nausea vomiting or diarrhea - Endocrine: No polyuria polydipsia no heat intolerance - Genitourinary: No dysuria , no blood in urine Physical Exam General: No acute distress HEENT: No acute findings Neck: Supple Respiratory system: Able to talk in full sentences, no audible wheeze Cardiovascular: S1-S2 RRR Extremities: Within normal limit Back exam benign 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 Daughter No problems noted. Brother No problems noted. Sister No problems noted. Unknown Ovarian cancer Social History Household Members: Children Both parents involved: Yes Caregiver staying overnight: No Housing: Apartment Alcohol intake: current Alcohol intake frequency: holidays/special occasions only Patient Tobacco Use Status: Never used Tobacco e-Cigarette/Vaping Use: Never Used Substance Use Type: Marijuana Special latonya needs: No Agree to transfusion: Yes service: No Current occupational status: employed Gender identity: Female Cognitive needs: No Hearing needs: No Vision needs: No Female Reproductive History Menstrual Age of Menarche: 11 Questionnaire PHQ-9 Over the last 2 weeks, how often have you been bothered by any of the following problems? 1. Little interest or pleasure in doing things: not at all 2. Feeling down, depressed, or hopeless: not at all 3. Trouble falling or staying asleep, or sleeping too much: not at all 4. Feeling tired or having little energy: several days 5. Poor appetite or overeating: not at all 6. Feeling bad about yourself - or that you are a failure or have let yourself or your family down: several days 7. Trouble concentrating on things, such as reading the newspaper or watching television: more than half the days 8. Moving or speaking so slowly that other people could have noticed. Or the opposite - being so fidgety or restless that you have been moving around a lot more than usual: not at all 9. Thoughts that you would be better off or of hurting yourself in some way: not at all Total score: 4 Depression Screening Interpretation: Negative Depression Screening Done: Yes 49530 - PHQ-9 Billing: Yes Source: Developed by Drs. Caesar Corcoran, Dina Sanchez, Reese Lugo and colleagues, with an educational felix from [employer]. Thrive Questionnaire Date Thrive assessed: 07/15/24 I am a: Patient What is your living situation today?: I have a steady place to live Within the past 12 months, did the food you bought not last and you didn't have the money to get more?: Never true Within the past 12 months, did you worry whether your food would run out before you got money to buy more?: Never true Do you have trouble paying for medicines?: No Do you have trouble getting transportation to medical appointments?: No Do you have trouble paying your heating and electricity bill?: No Do you have trouble taking care of your child, family member or friend?: No Do you have trouble with day-to-day activities such as bathing, preparing meals, shopping, managing finances, etc.?: No Are you currently unemployed and looking for a job?: No Are you interested in more education?: No Please select the resources that you would like help with: None Currently or been in a relationship where the following occur: No concerns reported THRIVE Score: 0 AUDIT C Alcohol Use Questionnaire (AUDIT-C) 1. How often do you have a drink containing alcohol?: Monthly or less 2. How many drinks containing alcohol do you have on a typical day when you are drinking?: 1 or 2 3. How often do you have six or more drinks on one occasion?: Never Total Score: 1 Score Reviewed/Action Taken: Yes LAURA-7 AMB Questionnaire LAURA-7 Date LAURA - 7 assessed: 07/15/24 Feeling nervous, anxious, or on edge: 1 = Several days Not being able to stop or control worryin = Not at all Worrying too much about different things: 2 = More than half the days Trouble relaxin = More than half the days Being so restless that it is hard to sit still: 0 = Not at all Becoming easily annoyed or irritable: 0 = Not at all Feeling afraid as if something awful might happen: 0 = Not at all Total LAURA-7 score (0-4 normal; 5-9 mild; 10-14 moderate; 15-21 severe): 5 Source: Developed by Drs. Caesar Corcoran, Dina Sanchez, Reese Lugo and colleagues, with an educational felix from [employer]. Physical exam (Primary Care) Vital Signs: Last Vital Signs Temp 98.5 F 10/17/24 12:14 Pulse 94 10/17/24 12:14 BP 124/82 10/17/24 12:14 Pulse Ox 98 10/17/24 12:14 Oxygen Delivery Method Room Air 10/17/24 12:14 BMI result Body Mass Index 34.2 Tobacco/Smoking Status: Tobacco use Status Tobacco use date assessed 10/09/24 10/17/24 12:18 Patient Tobacco Use Status Never used Tobacco 10/17/24 12:18 e-Cigarette/Vaping Use Never Used 10/17/24 12:18 PHQ-9: PHQ-9 Score PHQ-9: Total score 4 10/17/24 12:18 Depression Screening Interpretation: Negative Thrive Assessment: Date of Thrive Assessment Date Thrive assessed 07/15/24 10/17/24 12:18 Currently or been in a relationship where the following occur: No concerns reported Coding Level of Care Code Est Pt Level 3 (43740) Diagnoses Left lumbar radiculitis M54.16 Additional Codes PHQ-9 - 18296 - PHQ-9 Billing: Yes ([id number]) Assessment & Plan Assessment & Plan (1) Left lumbar radiculitis: Code(s): M54.16 - Radiculopathy, lumbar region Category: Medical Plan History - The patient is a 29-year-old female presenting for follow-up on left SI joint pain patient was evaluated a week ago - Noticed improvement in pain overall Patient was treated with muscle relaxer and diclofenac 75 mg b.i.d. - Currently awaiting the results of an echocardiogram which was conducted yesterday and she has a Holter monitor on right now Problem List - Joint inflammation SI left - Awaiting echocardiogram results Patient Instructions - Continue current activities but exercise caution with movements that involve bending or twisting. - Avoid overexertion or exercises that could strain the joints. - Wait for the echocardiogram results before resuming gym activities.
[2024-10-17 12:14] VITALS: BP 124/82; PULSE 94; TEMP 36.9; O2SAT 98; BMI 34.2
== END 2024-10-17 12:29 | disposition home or self-care (01) ==
LOC: HO.HMCC 12:13
PROVIDERS: PCP Internal Medicine; Visit Provider Internal Medicine
DX: M54.16 Radiculopathy, lumbar region (principal)

== ENCOUNTER 2024-11-25 12:32 | Outpatient (REF) | payer OTHER, SELFPAY ==
[2024-11-26 13:17] LABS: Bacterial Vaginosis PCR NEGATIVE (Negative); Candida Group PCR DETECTED (Not Detect); Candida glab krusei PCR NOT DETECTED (Not Detect); Trichomonas vaginalis PCR NOT DETECTED (Not Detect)
[2024-11-26 17:00] LABS: CT PCR NOT DETECTED (Not Detect.); NG PCR NOT DETECTED (Not Detect.)
== END 2024-11-25 12:33 | disposition home or self-care (01) ==
LOC: HO.LNP 12:32
PROVIDERS: PCP Internal Medicine; Visit Provider Obstetrics & Gynecology
DX: N89.8 Other specified noninflammatory disorders of vagina (principal); B96.89 Other specified bacterial agents as the cause of diseases classified elsewhere
CPT/HCPCS: 81515; 87491; 87591

== ENCOUNTER 2024-11-25 12:32 | Outpatient (AMB) | payer OTHER, SELFPAY ==
--- NOTE | 2024-11-25 12:35 | MHC.OFFVIS ---
Vital Signs 11/25/24 12:37 Height 5 ft 3 in Weight 192 lb BMI 34.0 Intake Visit Reasons: vaginal discharge Licensed Acupuncturist Required: No Information Interpreted: non-clinical & clinical Pharmacy Order Entry Technician: Pharmacy Order Entry Technician Present (Alexandra VAZQUEZ) Accompanied by: Self / Same As Patient Allergies No Known Allergies Allergy (Verified 11/25/24 12:38) HPI Comments Details: The patient is presenting complaining of vaginal discharge associated with vulvovaginal itching and foul odor, no other associated symptoms or any other complaint PFSH Medical History Anxiety, generalized Acquired syphilis Anxiety and depression Back pain HSV-2 infection Intestinal malabsorption Surgical History Hx of section H/O gastric sleeve H/O abdominoplasty H/O breast implant S/P laparoscopic sleeve gastrectomy Obesity Family History Father Bipolar 1 disorder Parkinsons Dementia Mother HTN (hypertension) Son No problems noted. Daughter No problems noted. Brother No problems noted. Sister No problems noted. Unknown Ovarian cancer Social History Household Members: Children Both parents involved: Yes Caregiver staying overnight: No Housing: Apartment Alcohol intake: current Alcohol intake frequency: holidays/special occasions only Patient Tobacco Use Status: Never used Tobacco e-Cigarette/Vaping Use: Never Used Substance Use Type: Marijuana Special latonya needs: No Agree to transfusion: Yes service: No Current occupational status: employed Gender identity: Female Cognitive needs: No Hearing needs: No Vision needs: No Female Reproductive History Menstrual Age of Menarche: 11 Review of Systems Const All systems reviewed & are unremarkable except as noted in HPI and below Physical Exam Vital Signs: BMI result Body Mass Index 34.0 General: Yes no CVA tenderness External Female Exam: normal external appearance and normal appearance of the urethra Speculum Exam - Vagina: normal appearance of the vagina, normal palpation, no lesions and no masses Speculum Exam - Cervix: normal appearance of the cervix, normal palpation, no lesions, no masses and nontender Bimanual exam- vagina & uterus: normal bimanual exam, normal palpation, uterine size normal, normal palpation, uterine shape normal, No Cervical tenderness present and non-tender Bimanual Exam- Adnexa, other: normal adnexae Back/Spine/Pelvis Back: no CVA tenderness Assessment & Plan Assessment & Plan (1) Bacterial vaginosis: Comment: Mixed with VVC Code(s): N76.0 - Acute vaginitis; B96.89 - Other specified bacterial agents as the cause of diseases classified elsewhere Category: Medical Plan: GC and chlamydia cultures with BV panel taken. Per CDC recommendation, will screen for STI, HepBs Ag, HIV, RPR, Hep C Ab ordered. Will treat with Terazol 0.8% q.h.s. for 3 days and Flagyl 500 mg p.o. b.i.d. x 7 days, Instructions given to the patient to refrain from sexual activity or to use condoms consistently and correctly during the BV treatment regimen, not to douch, it might increase the risk for relapse, and to call if symptoms persist or recur. Orders: Orders Hepatitis B Surface Antigen Today B96.89 - Other specified bacterial agents as the cause of diseases classified elsewhere, N76.0 - Acute vaginitis Hepatitis C Antibody Today B96.89 - Other specified bacterial agents as the cause of diseases classified elsewhere, N76.0 - Acute vaginitis HIV Ab/Ag Today B96.89 - Other specified bacterial agents as the cause of diseases classified elsewhere, N76.0 - Acute vaginitis Syphilis Screen Today B96.89 - Other specified bacterial agents as the cause of diseases classified elsewhere, N76.0 - Acute vaginitis Medications: New metronidazole 500 mg PO BID 7 days 14 tabs 0RF terconazole 0.8% 1 appful vaginal BEDTIME 3 days 20 grams 0RF Coding Level of Care Code Est Pt Level 3 (91997) Diagnoses Bacterial vaginosis N76.0; B96.89
[2024-11-25 12:37] VITALS: BMI 34.0
== END 2024-11-25 12:49 | disposition home or self-care (01) ==
LOC: HO.HWS 12:32
PROVIDERS: PCP Internal Medicine; Visit Provider Obstetrics & Gynecology
DX: N76.0 Acute vaginitis (principal); B96.89 Other specified bacterial agents as the cause of diseases classified elsewhere
CPT/HCPCS: 99213

== ENCOUNTER 2024-11-27 13:02 | Outpatient (AMB) | payer OTHER, SELFPAY ==
--- NOTE | 2024-11-27 13:04 | A.OFFVIS_ITS ---
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 Patient was previously seen in the office for atypical chest pain and palpitations for which patient has subsequently underwent an echocardiogram and a Holter study. Today patient reports very infrequent palpitations that is improved. Patient is otherwise denying any exertional chest pain, shortness of breath, dizziness, orthopnea, PND, leg edema, presyncope, or syncope. Patient notes that she is taking the spironolactone for acne treatment. [facility] Medical History Anxiety, generalized Acquired syphilis Anxiety and depression Back pain HSV-2 infection Intestinal malabsorption Surgical History Hx of section H/O gastric sleeve H/O abdominoplasty H/O breast implant S/P laparoscopic sleeve gastrectomy Obesity Family History Father Bipolar 1 disorder Parkinsons Dementia Mother HTN (hypertension) Son No problems noted. Daughter No problems noted. Brother No problems noted. Sister No problems noted. Unknown Ovarian cancer Social History Household Members: Children Both parents involved: Yes Caregiver staying overnight: No Housing: Apartment Alcohol intake: current Alcohol intake frequency: holidays/special occasions only Patient Tobacco Use Status: Never used Tobacco e-Cigarette/Vaping Use: Never Used Substance Use Type: Marijuana Special latonya needs: No Agree to transfusion: Yes service: No Current occupational status: employed Gender identity: Female Cognitive needs: No Hearing needs: No Vision needs: No Female Reproductive History Menstrual Age of Menarche: 11 Review of Systems Const Denies chills, Denies fatigue, Denies fever(s), Denies frequent falls, Denies weakness, Denies weight gain and Denies weight loss ENT Denies dizziness Card Denies chest pain, Denies leg edema, Denies lightheadedness, Denies palpitations, Denies dyspnea and Denies dyspnea on exertion Resp Denies cough, Denies dyspnea and Denies dyspnea on exertion GI Denies hematochezia Musc Denies abnormal gait, Denies muscle weakness, Denies numbness, Denies radiating pain into limb and Denies tingling Neuro Denies abnormal gait, Denies dizziness, Denies frequent falls, Denies numbness, Denies tingling and Denies weakness Endo Denies fatigue and Denies palpitations Physical Exam Vital Signs: Last Vital Signs Pulse 76 11/27/24 13:07 BP 126/64 11/27/24 13:07 BMI result Body Mass Index 34.8 Const General: cooperative, healthy appearing, comfortable and no acute distress Orientation/consciousness: patient oriented x3 HEENT Head: Yes normal to inspection Neck Neck: Yes normal visual inspection, Yes trachea midline and Yes supple Chest Chest palpation & inspection: normal inspection of the chest Resp Effort & Inspection: normal respiratory effort Auscultation: clear to auscultation bilaterally, no crackles, no rales, no rhonchi and no wheezes Cardio Jugular venous distension: no JVD Palpation: normal PMI Rate: regular rate Rhythm: regular rhythm Heart sounds: S1 normal heart sound present, S2 normal heart sound present, no click, no gallops, no murmurs and no rubs Peripheral pulses: Peripheral pulses 2+ throughout GI Inspection: Yes normal to inspection Palpation (GI): Soft to palpation Auscultation: normal bowel sounds Skin General skin exam: no rashes or lesions noted Neuro General: patient oriented x3 Extrem General: Yes normal to inspection, No no pedal edema and No calf tenderness Psych Appearance: grossly normal Mental Status: mental status grossly normal Speech and movement: Normal speech and movement present Assessment & Plan Assessment & Plan (1) Palpitations: Code(s): R00.2 - Palpitations Category: Medical (2) Precordial chest pain: Code(s): R07.2 - Precordial pain Category: Medical Plan 10/16/2024-patient's echo study showed normal LV systolic function with an ejection fraction between 55-60%, with mildly increased LV cavity size. 10/16/2024-patient underwent a Holter study that showed baseline sinus rhythm with an average rate of 77 beats per minute, and rare ventricular ectopy. Patient however marked her symptoms with sinus rhythm. Given resolution of her symptoms and improvement in her palpitations, no further testing indicated at this time. Blood pressure within normal limits. Advised heart healthy diet, regular exercise, losing weight, adequate hydration, avoiding caffeinated beverages and alcohol, and management of vascular risk factors. Emphasized on stress medication strategies. Follow-up in the office on an as-needed basis. In the interim, patient will call the office with any concerns or change in symptoms. This note was generated using voice recognition software. While every effort has been made to ensure accuracy and proper digital media associate, there may be occasional errors that could affect the content or meaning of the described symptoms. Coding Level of Care Code Est Pt Level 3 (17784) Complex EM visit Add On G2211 Diagnoses Palpitations R00.2 Precordial chest pain R07.2 Time Spent (min) 29 Comment Time spent in reviewing the chart, test results, assessment, counseling and documentation.
[2024-11-27 13:07] VITALS: BP 126/64; PULSE 76; BMI 34.8
== END 2024-11-27 13:24 | disposition home or self-care (01) ==
LOC: HO.HCS 13:03
PROVIDERS: PCP Internal Medicine
DX: R00.2 Palpitations (principal); R07.2 Precordial pain
CPT/HCPCS: 99213; G2211

== ENCOUNTER → 2024-11-27 13:02 | Outpatient (BNVA) | payer OTHER, SELFPAY | PROVIDERS: PCP Internal Medicine | DX: R00.2 Palpitations (principal); R07.2 Precordial pain | CPT/HCPCS: 99212 ==

== ENCOUNTER 2025-02-19 15:01 | Outpatient (AMB) | payer OTHER, SELFPAY ==
--- NOTE | 2025-02-19 15:02 | A.OFFVIS_ITS ---
Intake Visit Reasons: mirena insertion Accompanied by: Self / Same As Patient Allergies No Known Allergies Allergy (Verified 12/11/24 13:51) HPI Comments Details: Presenting for ParaGard IUD insertion, had an episode of unprotected in tercourse. [facility] Medical History Anxiety, generalized Acquired syphilis Anxiety and depression Back pain HSV-2 infection Intestinal malabsorption Surgical History Hx of section H/O gastric sleeve H/O abdominoplasty H/O breast implant S/P laparoscopic sleeve gastrectomy Obesity Family History Father Bipolar 1 disorder Parkinsons Dementia Mother HTN (hypertension) Son No problems noted. Daughter No problems noted. Brother No problems noted. Sister No problems noted. Unknown Ovarian cancer Social History Household Members: Children Both parents involved: Yes Caregiver staying overnight: No Housing: Apartment Alcohol intake: current Alcohol intake frequency: holidays/special occasions only Patient Tobacco Use Status: Never used Tobacco e-Cigarette/Vaping Use: Never Used Substance Use Type: Marijuana Special latonya needs: No Agree to transfusion: Yes service: No Current occupational status: employed Gender identity: Female Cognitive needs: No Hearing needs: No Vision needs: No Female Reproductive History Menstrual Age of Menarche: 11 Review of Systems Const All systems reviewed & are unremarkable except as noted in HPI and below Reports as per HPI and Reports no additional complaints GI Reports no additional complaints Reports no additional complaints Results AMB Test Urine AMB Test Urine Negative Last Edit by Alexandra De Leon CMA on 15:08 Results Reviewed Results Reviewed: Laboratory Last Values [facility] Clinic Negative 02/19/25 15:07 Assessment & Plan Assessment & Plan (1) Contraceptive management: Code(s): Z30.9 - Encounter for contraceptive management, unspecified Category: Medical Plan: Instructions given to patient to use a backup method for control and call day 1 of her next cycle for Mirena IUD insertion since the possibility of can not be reliably ruled out after her episode of unprotected intercourse. All questions answered, the patient verbalized understanding Orders: Orders AMB HCG Urine Test Today Z32.02 - Encounter for test, result negative Coding Level of Care Code Est Pt Level 3 (44979) Diagnoses Contraceptive management Z30.9
--- OUTSIDE RECORDS SUMMARY | 2025-02-19 15:40 | XMS_ITS | Clinical Summary ---
Author Organization [facility] Address [address] [address] Phone Care Team Providers Care Dock Worker Name Role Phone Mundo Rothman DO Primary Care Provider [phone] Medications NIGHTTIME SLEEP-AID, DOXYLAMN, 25 mg tablet 06/01/2021 Active PRENATABS RX 29 mg iron- 1 mg Tab 05/23/2021 Acti ve GUMMY 400 mcg-35 mg -25 mg-5 mg Chew 06/01/2021 Active VITAMIN B-6 25 MG tablet 06/01/2021 Active spironolactone (ALDACTONE) 50 MG tablet 04/19/2021 Active Social History Tobacco Use Types Packs/Day Years Used Date Smoking Tobacco: Never Assessed Education Answer Date Recorded Are you interested in more education? Not on monica e 10/20/2022 Are you concerned about learning? Not on file 10/20/2022 No 10/20/2022 No 10/20/2022 Digital Access Answer Date Recorded No 11/17/2022 No 11/17/2022 Reliable internet access at home? Not on file 11/17/2022 Device with a working camera? Not on file Comments No Sex and Gender Information Value Date Recorded Sex Assigned at Not on file Legal Sex Female 8:51 PM EDT Gender Identity Not on file Sexual Orientation Not on file Plan of Treatment Health Maintenance Due Date Last Done Comments POTASSIUM LEVEL 1995 DEPRESSION SCREENING 2007 SMOKING Hx and SMOKELESS TOBACCO SCREENING 08/22/2008 HEPATITIS C SCREENING 08/22/2013 HIV ONE-TIME SCREENING (18-6 5 YEARS) 08/22/2013 PAP SMEAR 08/22/2016 COVID-19 VACCINE (3 - 2023-2 5 season) 2024 08/06/2020, 07/15/2020 Adult Td,Tdap Booster 03/22/2028 03/22/2018 HEPATITIS A VACCINES Aged Out No long er eligible based on patient's age to complete this topic HIB VACCINES Aged Out No longer eligi ble based on patient's age to complete this topic MENINGOCOCCAL VACCINES (ACWY) Aged Out No longer eligible based on patient's age to complete this topic MENINGOCOCCAL VACCINES (B) Aged Out N o longer eligible based on patient's age to complete this topic PNEUMOCOCCAL VACCINES (0-49 years) Aged Out No longer eligible b ased on patient's age to complete this topic Medical Devices [place] [id number] [facility] [place] [id number] [facility] [place] [address] [facility] Care Teams Dock Worker Relationship Specialty Start Date End Date [place] [address] PCP - General 04/12/17 Additional Source Comments The information contained in this document represents components of the legal health record. It is not the complete legal health record.[facility]
== END 2025-02-19 15:24 | disposition home or self-care (01) ==
LOC: HO.HWS 15:01
PROVIDERS: PCP Internal Medicine; Visit Provider Obstetrics & Gynecology
DX: Z32.02 Encounter for pregnancy test, result negative (principal); Z30.9 Encounter for contraceptive management, unspecified
CPT/HCPCS: 99213

== ENCOUNTER → 2025-02-19 15:01 | Outpatient (BNVA) | payer OTHER, SELFPAY | PROVIDERS: PCP Internal Medicine; Visit Provider Obstetrics & Gynecology | DX: Z32.02 Encounter for pregnancy test, result negative (principal) | CPT/HCPCS: 81025 ==

== ENCOUNTER 2025-03-05 11:42 | Outpatient (AMB) | payer OTHER, SELFPAY ==
--- NOTE | 2025-03-05 11:51 | MHC.OFFVIS ---
Intake Visit Reasons: Vaginal bleeding Surface Supply Breathing Apparatus: Surface Supply Breathing Apparatus Present (Meghana) Accompanied by: Self / Same As Patient Allergies No Known Allergies Allergy (Verified 03/05/25 11:56) HPI Comments Details: Presenting on day 2 of her menstrual cycle for Mirena IUD insertion 12/17 GC/CT was negative PFSH Medical History Anxiety, generalized Acquired syphilis Anxiety and depression Back pain HSV-2 infection Intestinal malabsorption Surgical History Hx of section H/O gastric sleeve H/O abdominoplasty H/O breast implant S/P laparoscopic sleeve gastrectomy Obesity Family History Father Bipolar 1 disorder Parkinsons Dementia Mother HTN (hypertension) Son No problems noted. Daughter No problems noted. Brother No problems noted. Sister No problems noted. Unknown Ovarian cancer Social History Household Members: Children Both parents involved: Yes Caregiver staying overnight: No Housing: Apartment Alcohol intake: current Alcohol intake frequency: holidays/special occasions only Patient Tobacco Use Status: Never used Tobacco e-Cigarette/Vaping Use: Never Used Substance Use Type: Marijuana Special latonya needs: No Agree to transfusion: Yes service: No Current occupational status: employed Gender identity: Female Cognitive needs: No Hearing needs: No Vision needs: No Female Reproductive History Menstrual Age of Menarche: 11 Review of Systems Const All systems reviewed & are unremarkable except as noted in HPI and below Physical Exam General: Yes no CVA tenderness External Female Exam: normal external appearance and normal appearance of the urethra Speculum Exam - Vagina: normal appearance of the vagina, normal palpation, no lesions and no masses Speculum Exam - Cervix: normal appearance of the cervix, normal palpation, no lesions, no masses, nontender and Other cervical findings present (Tissues protruding from endocervix removed) Bimanual exam- vagina & uterus: normal bimanual exam, normal palpation, uterine size normal, normal palpation, uterine shape normal, No Cervical tenderness present and non-tender Bimanual Exam- Adnexa, other: normal adnexae Back/Spine/Pelvis Back: no CVA tenderness Office Procedures IUD Insert/Removal Details Details: The patient is presenting for Mirena IUD insertion Urine test was done in the office and was negative; All the contraindications were excluded. The following possible complications were discussed with the patient: Intrauterine , Ectopic , Sepsis, Pelvic Infection, Irregular Bleeding and Amenorrhea, Perforation, Expulsion, Ovarian Cysts, Breast Cancer, The following adverse effects were discussed with the patient: alteration of menstrual bleeding pattern, including: unscheduled uterine bleeding decreased uterine bleeding increased scheduled uterine bleeding female genital tract bleeding ,amenorrhea , genital discharge , vulvovaginitis , breast pain , benign ovarian cyst and associated complications , dysmenorrhea , Gastrointestinal disorders abdominal/pelvic pain, headache/migraine , back pain , acne , depression Alternative options were discussed with the patient including but not limited: control pills, patch, NuvaRing, Depo-medroxyprogesterone acetate, Nexplanon, copper IUD, sterilization, vasectomy, others The procedure was explained in detail to patient , at the end patient signed the informed consent obtained. A no touch technique was used throughout the procedure. A speculum was placed into vagina and cervix was cleaned with betadine). A tenaculum was placed. A plastic sound was advanced through the external and internal os until it reached the fundus of the uterus, the depth was 8 cm. The sound was then withdrawn. The IUD was loaded in a sterile manner and advanced into position. The string was visualized and cut to 3 cm. Tenaculum site hemostatic. All instruments removed from vagina. Patient tolerated the procedure well. NO complications were noted. Patient was instructed to call for fever over 100.4, significant pain unrelieved by Motrin, IUD expulsion, heavy bleeding, or abnormal discharge. In addition, the following clinical considerations were discussed with the patient to call for removal: A stroke or heart attack ,Very severe or migraine headaches ,Unexplained fever ,Yellowing of the skin or whites of the eyes, as these may be signs of serious liver problems , or suspected , Pelvic pain or pain during sex ,HIV positive seroconversion in herself or her partner , Possible exposure to sexually transmitted infections Unusual vaginal discharge or genital sores , severe vaginal bleeding or bleeding that lasts a long time, or if she misses a menstrual period, Inability to feel Mirena's threads Counseled the patient that the IUD does not protect against STI's, recommended use of condoms for the first 7 days post insertion and explained to the patient that condoms are recommended for patients at risk for sexually transmitted infections. Informed the patient that Mirena IUD is FDA approved for 8 years for contraception for 5 years for the treatment of heavy menses Instructed the patient to schedule a Follow up appointment in 4 to 6 weeks following insertion. This note was generated with a voice recognition program. Some errors may have been overlooked during the review of this note. Sometimes these errors may affect the content or meaning of a given sentence. 61658-XDN Insertion Procedure code (CPT) selection complete Office Meds Mirena 21 mcg/24 hr (up to 8 years) 52 mg intrauterine device Performing Provider: Rodrigo Reid MD [place] [facility] [place] [facility] Documented (not given) by: Rodrigo Reid MD on 03/05/25 12:09 Dose Route Admin Location Dispensed Lot Number Expiration Date NDC Trim Mechanic 1 device intrauterine ea Total Dispensed Waste n/a n/a Assessment & Plan Assessment & Plan (1) Encounter for insertion of Mirena IUD: Code(s): Z30.430 - Encounter for insertion of intrauterine contraceptive device Category: Medical Plan: UPT done in the office was negative GC/CT with BV panel collected. Mirena IUD inserted. Instructions given the patient to follow up in 6 weeks (2) Granulation tissue of cervix: Code(s): N88.8 - Other specified noninflammatory disorders of cervix uteri Category: Medical Plan: Explained to the patient that on pelvic exam , there was tissues protruding from endocervix, a Hayley clamp was used to remove the tissue from the endocervix and was sent to pathology. Instructions given the patient to follow up in 6 weeks Orders: Orders AMB IUD Insertion/Removal - Practice Supplied Today Z30.430 - Encounter for insertion of intrauterine contraceptive device Medications: New Mirena (levonorgestrel) 1 device intrauterine ONCE 1 ea 0RF Family planning NS Z30.430 - Encounter for insertion of intrauterine contraceptive device Coding Level of Care Code Est Pt Level 3 (29657) Procedure Only Diagnoses Encounter for insertion of Mirena IUD Z30.430 Granulation tissue of cervix N88.8 CPT Codes Details - CPT: 97159-NLA Insertion ([id number])
--- OUTSIDE RECORDS SUMMARY | 2025-03-05 16:03 | XMS_ITS | Clinical Summary ---
Author Organization [facility] Address [address] [address] Phone Care Team Providers Care Cutting And Boning Supervisor Name Role Phone Mundo Rothman DO Primary Care Provider [phone] Medications NIGHTTIME SLEEP-AID, DOXYLAMN, 25 mg tablet [...] (18-6 5 YEARS) 08/22/2013 PAP SMEAR 08/22/2016 INFLUENZA VACCINE (#1) 2025 9, 03/23/2015 COVID-19 VACCINE (3 - 2024-2 6 season) 2025 08/06/2020, 07/15/2020 Adult Td,Tdap Booster 03/22/2028 03/22/2018 [...] topic Medical Devices Not on file Insurance [facility] [place] [id number] [facility] Care Teams Cutting And Boning Supervisor Relationship Specialty Start Date End Date [place] [address] PCP - General 04/12/17 Additional Source Comments The information contained in this document represents components of the legal health record. It is not the complete legal health record.[facility]
== END 2025-03-05 12:12 | disposition home or self-care (01) ==
LOC: HO.HWS 11:42
PROVIDERS: PCP Internal Medicine; Visit Provider Obstetrics & Gynecology
DX: N88.8 Other specified noninflammatory disorders of cervix uteri (principal); Z30.430 Encounter for insertion of intrauterine contraceptive device
CPT/HCPCS: 58300; 99213

== ENCOUNTER 2025-03-05 11:42 | Outpatient (REF) | payer OTHER, SELFPAY ==
[2025-03-05 20:38] LABS: Bacterial Vaginosis PCR NEGATIVE (Negative); Candida Group PCR DETECTED (Not Detect); Candida glab krusei PCR NOT DETECTED (Not Detect); Trichomonas vaginalis PCR NOT DETECTED (Not Detect)
[2025-03-06 09:07] LABS: CT PCR NOT DETECTED (Not Detect.); NG PCR NOT DETECTED (Not Detect.)
== END 2025-03-05 11:43 | disposition home or self-care (01) ==
LOC: HO.LNP 11:42
PROVIDERS: PCP Internal Medicine; Visit Provider Obstetrics & Gynecology
DX: Z30.430 Encounter for insertion of intrauterine contraceptive device (principal); N88.8 Other specified noninflammatory disorders of cervix uteri; B96.89 Other specified bacterial agents as the cause of diseases classified elsewhere; N76.0 Acute vaginitis
CPT/HCPCS: 58300; 81515; 87491; 87591; 88305; J7298

== ENCOUNTER 2025-03-11 10:04 | Outpatient (REF) | payer OTHER, SELFPAY ==
--- NOTE | ~2025-03-11 | US_ITS ---
EXAMINATION: US PELVIS TRANSABDOMINAL AND TRANSVAGINAL CLINICAL INFORMATION: N93.9 - Abnormal uterine and vaginal bleeding, unspecified COMPARISON: Ultrasound on September 11, 2023 TECHNIQUE: Ultrasound of the pelvis is performed using both transabdominal and transvaginal transducers along with Doppler. Transvaginal imaging is performed due to inadequate visualization transabdominally. FINDINGS: Uterus: The uterus is retroverted and retroflexed and measures 7.5 x 3.4 x 4.4 cm (volume of 59.0 cc). Homogeneous myometrial echotexture. Endometrial echo complex could not be measured by the basis of intrauterine device. This intrauterine device appears to be in appropriate position within the endometrial cavity. Right ovary measures 2.7 x 2.3 x 1.5 cm (volume of 4.9 cc). Normal follicular appearance. Left ovary measures 2.6 x 1.4 x 1.7 cm (volume of 3.2 cc). Normal follicular appearance. Pelvis: Small amount of free fluid. US/US pelvic and transvaginal IMPRESSION: Intrauterine device appears in appropriate position within the endometrial cavity. Unremarkable appearance of the uterus and ovaries. Small amount of free fluid in the cul-de-sac could be physiologic. Electronically signed by: Tigre Hairston MD 03/11/2025 10:44 AM EDT
--- OUTSIDE RECORDS SUMMARY | 2025-03-11 12:13 | XMS_ITS | Clinical Summary ---
Author Organization [facility] Address [address] [address] Phone Care Team Providers Care Fitter Tacker Name Role Phone Mundo Rothman DO Primary Care Provider [phone] Medications NIGHTTIME SLEEP-AID, DOXYLAMN, 25 mg tablet [...] Medical Devices Not on file Insurance [facility] [place] [id number] [facility] [place] [address] Care Teams Fitter Tacker Relationship Specialty Start Date End Date [place] [address] PCP - General 04/12/17 Additional Source Comments The information contained in this document represents components of the legal health record. It is not the complete legal health record.[facility]
== END 2025-03-11 10:05 | disposition home or self-care (01) ==
LOC: HO.HMGCX 10:04
PROVIDERS: PCP Internal Medicine; Visit Provider Obstetrics & Gynecology
DX: N93.9 Abnormal uterine and vaginal bleeding, unspecified (principal)
CPT/HCPCS: 76830; 76856

== ENCOUNTER → 2025-03-11 10:09 | Outpatient (BNV) | payer OTHER, SELFPAY | PROVIDERS: PCP Internal Medicine; Visit Provider Radiology Body Imaging | DX: N93.9 Abnormal uterine and vaginal bleeding, unspecified (principal) | CPT/HCPCS: 76830; 76856 ==

== ENCOUNTER 2025-03-11 10:55 | Outpatient (AMB) | payer OTHER, SELFPAY ==
--- NOTE | 2025-03-11 10:57 | MHC.OFFVIS ---
Intake Visit Reasons: ultrasound follow up Allergies No Known Allergies Allergy (Verified 03/05/25 11:56) HPI Comments Details: Presenting for ultrasound follow-up which showed the following; IMPRESSION: Intrauterine device appears in appropriate position within the endometrial cavity. Unremarkable appearance of the uterus and ovaries. Small amount of free fluid in the cul-de-sac could be physiologic. The patient is doing well, had a an episode of passage of tissues when she went to the bathroom few days ago, since then the patient has no complaints , no pelvic pain or bleeding The pathology of the tissue coming out of the cervix showed the following: Necrotic decidua, chorionic villi and organizing clot. [facility] Medical History Anxiety, generalized Acquired syphilis Anxiety and depression Back pain HSV-2 infection Intestinal malabsorption Surgical History Hx of section H/O gastric sleeve H/O abdominoplasty H/O breast implant S/P laparoscopic sleeve gastrectomy Obesity Family History Father Bipolar 1 disorder Parkinsons Dementia Mother HTN (hypertension) Son No problems noted. Daughter No problems noted. Brother No problems noted. Sister No problems noted. Unknown Ovarian cancer Social History Household Members: Children Both parents involved: Yes Caregiver staying overnight: No Housing: Apartment Alcohol intake: current Alcohol intake frequency: holidays/special occasions only Patient Tobacco Use Status: Never used Tobacco e-Cigarette/Vaping Use: Never Used Substance Use Type: Marijuana Special latonya needs: No Agree to transfusion: Yes service: No Current occupational status: employed Gender identity: Female Cognitive needs: No Hearing needs: No Vision needs: No Female Reproductive History Menstrual Age of Menarche: 11 Assessment & Plan Assessment & Plan (1) Retained products of conception after delivery without hemorrhage: Comment: Resolved Code(s): O73.1 - Retained portions of placenta and membranes, without hemorrhage Category: Medical Plan: Discussed with the patient the results the ultrasound, and pathology results. Will order hCG quantitative Instructions given to patient to call in case of abnormal uterine bleeding cramping, fever above 100.4 All questions answered, the patient verbalized understanding Orders: Orders HCG Quantitative Today N93.9 - Abnormal uterine and vaginal bleeding, unspecified Coding Level of Care Code Est Pt Level 3 (48002) Diagnoses Retained products of conception after delivery without hemorrhage O73.1
== END 2025-03-11 11:11 | disposition home or self-care (01) ==
LOC: HO.HWS 10:56
PROVIDERS: PCP Internal Medicine; Visit Provider Obstetrics & Gynecology
DX: O73.1 Retained portions of placenta and membranes, without hemorrhage (principal)
CPT/HCPCS: 99213

== ENCOUNTER 2025-04-02 08:54 | Outpatient (AMB) | payer OTHER, SELFPAY ==
--- NOTE | 2025-04-02 09:56 | A.OFFPC_ITS ---
Intake Visit Reasons: follow up, derm, resched Allergies No Known Allergies Allergy (Verified 03/05/25 11:56) Medication List - Last Reconciled 04/02/25 by Nikhil Toney MD acetaminophen 1,000 mg (2 x 500 mg) PO Q6H PRN amitriptyline 25 mg PO BEDTIME 90 days metronidazole 500 mg PO BID 7 days quetiapine ER 50 mg PO BEDTIME spironolactone 50 mg PO BID sumatriptan succinate 50 mg PO ONCE PRN 30 days terconazole 0.8% 1 appful vaginal BEDTIME 3 days Tobacco use date assessed: 10/09/24 Dental Screening Dental Screen Date: 10/09/24 HPI follow up, derm, resched HPI Details History of Present Illness The patient is a 29-year-old female presenting with acne. Acne: - The [facility]. - She has been utilizing Retin-A (tretin oin) cream and spironolactone for control. - The spironolactone dose has been adjus tia based on acne severity, typically starting at 150 mg per day ? two tablets in the morning and one tablet in the evening. - The dosage is reduced to 100 mg daily during periods of improvement. - Most recently under treatment, she lac ks specific information about her current tretinoin concentration. - There is no mention of previous lab mo nitoring despite noted possibilities of spironolactone causing blood pressure and electrolyte imbalances. - Limited past communication from her pr evious provider regarding the effects of spironolactone was reported, indicating potential areas needing further attention. 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 - The patient currently has an intrauter ine device (IUD) as contraception. Problem List - Acne - Medication Management Plan - Initiate laboratory evaluations to mon itor potential spironolactone effects, particularly regarding electrolytes and renal function. - Direct orders for bloodwork were place d, with instructions provided for non- fasting samples. - Planning to send acne medication presc riptions ? including spironolactone and tretinoin ? accurately targeted, upon receipt of laboratory evaluations. - Continuity of treatment involves a fol low-up visit every four months to monitor effectiveness and safety, including blood pressure assessments and treatment adjustment as necessary. - Detailed education on spironolactone's potential effects on blood pressure and electrolyte balance, with recommendations for monitoring symptoms such as dizziness or lightheadedness. - Given her IUD usage, guidance provided on discontinuation of tretinoin should occur due to teratogenic risks. Review of Systems - General: No fever no chills - Neurological: No headaches no dizziness - Ear nose throat: No sore throat no hearing difficulty no ear pain - Cardiovascular: No syncope, no chest pain, no palpitations - Gastrointestinal: No nausea vomiting or diarrhea PFSH Medical History Anxiety, generalized Acquired syphilis Anxiety and depression Back pain HSV-2 infection Intestinal malabsorption Surgical History Hx of section H/O gastric sleeve H/O abdominoplasty H/O breast implant S/P laparoscopic sleeve gastrectomy Obesity Family History Father Bipolar 1 disorder Parkinsons Dementia Mother HTN (hypertension) Son No problems noted. Daughter No problems noted. Brother No problems noted. Sister No problems noted. Unknown Ovarian cancer Social History Household Members: Children Housing: Apartment Alcohol intake: current Alcohol intake frequency: holidays/special occasions only Patient Tobacco Use Status: Never used Tobacco e-Cigarette/Vaping Use: Never Used Substance Use Type: Marijuana Special latonya needs: No Agree to transfusion: Yes service: No Current occupational status: employed Gender identity: Female Cognitive needs: No Hearing needs: No Vision needs: No Female Reproductive History Menstrual Age of Menarche: 11 Questionnaire Thrive Questionnaire Date Thrive assessed: 07/15/24 LAURA-7 AMB Questionnaire LAURA-7 Date LAURA - 7 assessed: 07/15/24 Source: Developed by Drs. Caesar Corcoran, Dina Sanchez, Reese Lugo and colleagues, with an educational felix from [employer]. Physical exam (Primary Care) Tobacco/Smoking Status: Tobacco use Status Tobacco use date assessed 10/09/24 04/02/25 09:57 Patient Tobacco Use Status Never used Tobacco 04/02/25 09:57 e-Cigarette/Vaping Use Never Used 04/02/25 09:57 Thrive Assessment: Date of Thrive Assessment Date Thrive assessed 07/15/24 04/02/25 09:57 Telehealth Telehealth Telehealth Platform: [employer] Location of provider rendering services: practice address Location of patient: address on file Patient Identification confirmed using: Name, : Yes Telehealth method: video Patient verbally consented to treatment: Yes Patient verbally consented to billing insurance company: Yes Patient informed of any privacy concerns related to visit: Yes Minutes spent on Phone/Video with Pt.: 13 Coding Level of Care Code Tele Est Pt Level 3 (60360) Diagnoses Acne vulgaris L70.0 Acne type: acne vulgaris Medication management Z79.899 Assessment & Plan Assessment & Plan (1) Acne: Code(s): L70.9 - Acne, unspecified Category: Medical Qualifiers: Acne type: acne vulgaris Qualified Code(s): L70.0 - Acne vulgaris (2) Medication management: Code(s): Z79.899 - Other snf (current) drug therapy Category: Medical Plan History of Present Illness The patient is a 29-year-old female presenting with acne. Acne: - The patient is seeking a transfer of management for her acne treatment. - She has been utilizing Retin-A (tretinoin) cream and spironolactone for control. - The spironolactone dose has been adjusted based on acne severity, typically starting at 150 mg per day ? two tablets in the morning and one tablet in the evening. - The dosage is reduced to 100 mg daily during periods of improvement. - Most recently under treatment, she lacks specific information about her current tretinoin concentration. - There is no mention of previous lab monitoring despite noted possibilities of spironolactone causing blood pressure and electrolyte imbalances. - Limited past communication from her previous provider regarding the effects of spironolactone was reported, indicating potential areas needing further attention. 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 - The patient currently has an intrauterine device (IUD) as contraception. Problem List - Acne - Medication Management Plan - Initiate laboratory evaluations to monitor potential spironolactone effects, particularly regarding electrolytes and renal function. - Direct orders for bloodwork were placed, with instructions provided for non- fasting samples. - Planning to send acne medication prescriptions ? including spironolactone and tretinoin ? accurately targeted, upon receipt of laboratory evaluations. - Continuity of treatment involves a follow-up visit every four months to monitor effectiveness and safety, including blood pressure assessments and treatment adjustment as necessary. - Detailed education on spironolactone's potential effects on blood pressure and electrolyte balance, with recommendations for monitoring symptoms such as dizziness or lightheadedness. - Given her IUD usage, guidance provided on discontinuation of tretinoin should occur due to teratogenic risks. Orders: Orders Comprehensive Met. Panel 04/02/25 F33.41 - Major depressive disorder, recurrent, in partial remission, L70.9 - Acne, unspecified Complete Blood Count Auto Diff 04/02/25 F33.41 - Major depressive disorder, recurrent, in partial remission, L70.9 - Acne, unspecified
== END 2025-04-02 11:41 | disposition home or self-care (01) ==
LOC: HO.HMCC 08:54
PROVIDERS: PCP Internal Medicine; Visit Provider Internal Medicine
DX: L70.0 Acne vulgaris (principal); Z79.899 Other long term (current) drug therapy

== ENCOUNTER 2025-04-02 11:11 | Outpatient (REF) | payer OTHER, SELFPAY ==
[2025-04-02 13:39] LABS: MANUAL DIFF FLAG NO
[2025-04-02 14:07] LABS: Alanine Aminotransferase 19 U/L (0-31); Albumin Level 4.5 g/dL (3.5-5.0); Alkaline Phosphatase 62 U/L (39-117); Anion Gap 10 (12-20); Aspartate Amino Transferase 25 U/L (5-31); Blood Urea Nitrogen 14 mg/dL (9-16); Calcium 9.4 mg/dL (8.4-10.2); Carbon Dioxide 29 mmol/L (22-29); Chloride 107 mmol/L (96-108); Estimated Glomerular Filt Rate > 60; Potassium 4.4 mmol/L (3.3-5.1); Sodium 142 mmol/L (135-145); Total Protein 7.6 g/dL (6.5-8.0)
[2025-04-02 14:09] LABS: Hematocrit 36.3 % (37.0-47.0); Hemoglobin 10.9 g/dl (12.0-16.0); Imm Gran Abs Auto 0.03 X10*3/uL (0.00-0.03); Imm Gran Pct Auto 0.3 % (0.0-0.4); Lymphocytes Absolute Auto 2.2 X10*3/uL (1.2-4.9); Mean Corpuscular HGB Conc 30.0 g/dl (31.0-35.0); Mean Corpuscular Hemoglobin 23.5 pg (27.0-33.0); Mean Corpuscular Volume 78.2 fL (80.0-98.0); NRBC Abs Auto 0.000 X10*3/uL (0.0-0.012); NRBC Pct Auto 0.0 /100WBC (0.0-0.2); Platelet Count 418 X10*3/uL (160-400); Red Blood Count 4.64 X10*6/uL (4.20-5.50); White Blood Count 9.1 X10*3/uL (4.8-10.8)
== END 2025-04-02 11:12 | disposition home or self-care (01) ==
LOC: HO.10HDL 11:11
PROVIDERS: Visit Provider Internal Medicine
DX: F33.41 Major depressive disorder, recurrent, in partial remission (principal); L70.9 Acne, unspecified; L70.0 Acne vulgaris; Z79.899 Other long term (current) drug therapy
CPT/HCPCS: 36415; 80053; 85025